=== PATIENT | female | born 1935 | race Caucasian/White ===

== ENCOUNTER 2017-01-07 16:20 | Inpatient (IN) | payer MEDICARE ==
[2017-01-07 16:35] LABS: O2 DELIVERY DEVICE ROOM AIR; O2 FLOW RATE 0
[2017-01-07 16:56] LABS: CHLORIDE,CL 101 mEq/L (98-106); PCO2 ARTERIAL 37 mm/Hg0 (35-45); PO2 ARTERIAL 61 mm/Hg (80-100); SODIUM,NA 138 mEq/L (136-145)
[2017-01-07 16:57] LABS: BICARBONATE,ARTERIAL 25.5 mm/L (22.0-26.0); O2 SATURATION ARTERIAL 92 % (95-98)
[2017-01-07] MEDS ORDERED: Albuterol/Ipratropium 3.0-0.5 MG/3 ML Neb Soln ONE (17:31)
[2017-01-07] MEDS: Lactated Ringers 1,000 ML IV SCH (18:20)
[2017-01-07] MEDS ORDERED: Naproxen 500 MG Tab PO PRN (20:10)
[2017-01-07] MEDS: cefTRIAXone 1 GM Vial IVPUSH SCH (20:38)
[2017-01-07] MEDS: Acetaminophen 500 MG Tab PO PRN (20:42)
[2017-01-07] MEDS: Fluconazole 100 MG Tab PO SCH (20:42)
[2017-01-07] MEDS: Albuterol/Ipratropium 3.0-0.5 MG/3 ML Neb Soln NEB SCH (20:49)
[2017-01-07] MEDS ORDERED: Azithromycin 500 MG in Sodium Chloride 0.9% 250 ML IV SCH (21:00)
[2017-01-07] MEDS: Metoprolol Tartrate 50 MG Tab PO SCH (21:20)
[2017-01-08] MEDS: Acetaminophen 500 MG Tab PO PRN ×2 (04:11→15:03)
[2017-01-08] MEDS: Lactated Ringers 1,000 ML IV SCH (04:54)
[2017-01-08] MEDS: Multivitamin Tab PO SCH (08:15)
[2017-01-08] MEDS: Metoprolol Tartrate 50 MG Tab PO SCH ×2 (08:15→19:27)
[2017-01-08] MEDS: Fluconazole 100 MG Tab PO SCH (08:15)
[2017-01-08] MEDS: Fluconazole/Normal Saline 200 MG in Premix Bag 1 BAG IV SCH (09:29)
[2017-01-08] MEDS: Albuterol/Ipratropium 3.0-0.5 MG/3 ML Neb Soln NEB SCH ×3 (09:29→17:00)
[2017-01-08] MEDS: Pantoprazole 40 MG Vial IVPUSH SCH (09:30)
--- NOTE | 2017-01-08 11:21 | PN ---
DATE: 01/08/2017 S: The patient is an 81-year-old with a history of COPD and lung cancer. She has had a prior right upper lobectomy. She presented with Pam Maharaj PA-C, for just generalized decline, weakness, dizziness, cough. Chest x-ray showed multiple opacifications in the right lung. Ultimately, CT scan was done which showed middle and right lower lobe pneumonic process, questionable fungus as well. Since she has been admitted she has had a T-max of 100.5, vitals were otherwise been stable. She is on no oxygen this morning. She is saturating at 94%. She really denies any concerns. Since admission white count, hemoglobin, and platelet count have all declined, INR is therapeutic at 2.9. Rest of her electrolytes are fine. Her CRP was 19.6 on admit, it was 15.9 today. O: GENERAL: On physical exam, she is pleasant, alert, and cooperative, does not appear in distress. HEENT: Grossly benign. NECK: Veins are flat. RESPIRATORY: Her lung sounds are diminished in all childs. She is rhonchus with some rales in the right lower lobe area. No audible wheezing today. CARDIAC: Tones are regular. ABDOMEN: Soft. EXTREMITIES: No peripheral edema is seen. LABORATORY DATA: CT scan of the head and chest was done yesterday by Pam. Head was fine, looks like she has multiple opacities in the right middle and lower lobe. Radiologist notes these are cancer recurrence from her history of lung cancer. His question if there may be fungus there. ASSESSMENT: 1. RIGHT MIDDLE AND LOWER LOBE PNEUMONIA, POSSIBLY FUNGAL. 2. HISTORY OF RECURRENT DEEP VEIN THROMBOSIS, CURRENTLY ANTICOAGULATED. 3. CHRONIC OBSTRUCTIVE PULMONARY DISEASE. 4. HISTORY OF LUNG CANCER. 5. ANEMIA WITH MICROCYTIC. P: The patient is on Coumadin. Her hemoglobin went from 9.2 yesterday to 7.8 today. I will recheck it again this afternoon. We will get Hemoccult. We will start her on IV Protonix. Type and screen her for 4 units. Currently, we will continue with her current dose of Coumadin. I am going to switch her over to IV Diflucan and we will continue to follow closely. BRIAN/SAMANTA /[id number]
[2017-01-08] MEDS: Albuterol 0.083% 2.5 MG/3 ML Neb Soln ONE ×2 (15:00→17:00)
[2017-01-08] MEDS ORDERED: Albuterol 0.083% 2.5 MG/3 ML Neb Soln NEB SCH ×2 (16:00→21:00)
[2017-01-08 17:09] LABS: O2 DELIVERY DEVICE NASAL CANNULA; O2 FLOW RATE 0
[2017-01-08 17:10] LABS: BICARBONATE,ARTERIAL 24.7 mm/L (22.0-26.0); O2 SATURATION ARTERIAL 98 % (95-98); PCO2 ARTERIAL 36 mm/Hg0 (35-45); PO2 ARTERIAL 105 mm/Hg (80-100)
[2017-01-08] MEDS ORDERED: Albuterol 0.083% 2.5 MG/3 ML Neb Soln ONE (17:16)
[2017-01-08] MEDS: cefTRIAXone 1 GM Vial IVPUSH SCH (19:22)
[2017-01-08] MEDS: Azithromycin 500 MG in Sodium Chloride 0.9% 250 ML IV SCH (19:28)
[2017-01-08] MEDS: Temazepam 15 MG Cap PO PRN (20:34)
[2017-01-08] MEDS ORDERED: Albuterol 0.083% 2.5 MG/3 ML Neb Soln NEB ONE (23:50)
[2017-01-09] MEDS: Pantoprazole 40 MG Vial IVPUSH SCH (08:18)
[2017-01-09] MEDS: Metoprolol Tartrate 50 MG Tab PO SCH (08:22)
[2017-01-09] MEDS: Multivitamin Tab PO SCH (08:22)
[2017-01-09] MEDS ORDERED: Albuterol 0.083% 2.5 MG/3 ML Neb Soln NEB PRN (08:56)
[2017-01-09] MEDS: Fluconazole/Normal Saline 200 MG in Premix Bag 1 BAG IV SCH (09:02)
[2017-01-09] MEDS: Albuterol/Ipratropium 3.0-0.5 MG/3 ML Neb Soln NEB SCH ×4 (09:16→20:38)
--- NOTE | 2017-01-09 09:57 | PN ---
DATE: 01/09/2017 S: Ms. Stanley had an uneventful day yesterday. She did not spike any temperatures. She does feel quite short of breath, although she is saturating in the upper 90s on 2 L. she is much more raspy and audibly wheezing this morning. She is not working much harder to breathe. She talks in full sentences. O: GENERAL: She is pleasant and cooperative on exam. NECK: Her neck veins are flat. LUNGS: Sounds are rhonchorous throughout with expiratory wheezing. Rales heard again on that right side. CARDIAC: Tones are irregular, but controlled. ABDOMEN: Soft and nontender. She has no peripheral edema. ASSESSMENT: 1. PNEUMONIA WITH HISTORY OF LUNG CARCINOMA. 2. POSSIBLE FUNGAL PNEUMONIA. 3. OUT THE PANCYTOPENIA. P: We will add some DuoNeb to her regimen and get her on a low dose of the steroids. We are not going to make any other changes at this time. The patient clinically doing well. Clinically appears stable and will continue to monitor closely. BRIAN/SAMANTA /[id number]
[2017-01-09] MEDS: guaiFENesin 200 MG Tab PO SCH ×2 (11:47→19:39)
[2017-01-09] MEDS ORDERED: Warfarin 2.5 MG Tab PO SCH (12:00)
[2017-01-09] MEDS: cefTRIAXone 1 GM Vial IVPUSH SCH (19:39)
[2017-01-09] MEDS: Azithromycin 500 MG in Sodium Chloride 0.9% 250 ML IV SCH (19:39)
[2017-01-09] MEDS: Acetaminophen 500 MG Tab PO PRN (19:49)
[2017-01-09] MEDS ORDERED: Metoprolol Tartrate 25 MG Tab PO SCH (20:00)
[2017-01-09] MEDS: Temazepam 15 MG Cap PO PRN (20:38)
[2017-01-10] MEDS: guaiFENesin 200 MG Tab PO SCH ×3 (07:37→20:06)
[2017-01-10] MEDS: Metoprolol Tartrate 25 MG Tab PO SCH ×2 (07:37→20:05)
[2017-01-10] MEDS: Multivitamin Tab PO SCH (07:37)
[2017-01-10] MEDS: Pantoprazole 40 MG Vial IVPUSH SCH (07:38)
[2017-01-10] MEDS: Albuterol/Ipratropium 3.0-0.5 MG/3 ML Neb Soln NEB SCH ×4 (09:07→20:13)
[2017-01-10] MEDS: Fluconazole/Normal Saline 200 MG in Premix Bag 1 BAG IV SCH (09:08)
[2017-01-10] MEDS: cefTRIAXone 1 GM Vial IVPUSH SCH (20:05)
[2017-01-10] MEDS: Azithromycin 500 MG in Sodium Chloride 0.9% 250 ML IV SCH (20:07)
[2017-01-10] MEDS: Acetaminophen 500 MG Tab PO PRN (20:12)
[2017-01-10] MEDS: Temazepam 15 MG Cap PO PRN (20:12)
--- NOTE | 2017-01-10 21:30 | PCM.PN ---
- General Info Date of Service: 01/10/17 Admission Dx/Problem (Free Text): pneumonia, possible fungal pneumonia COPD Hx of lung cancer Subjective Update: Patient has been receiving azithromycin, ceftriaxone and fluconazole for pneumonia. She is tolerating these medications well. She's developed runs of tachycardia to 140's with her metoprolol was decreased yesterday. She is now getting 50 mg twice a day. Rate is regular and in the 90s to low 100s. O2 sats remained in. She has been afebrile. DuoNeb breathing treatments regularly. Patient states that she feels improved today and nursing staff have no new concerns. - Review of Systems General: Denies: Fever, Fatigue HEENT: Reports: no symptoms Pulmonary: Reports: cough, wheezing. Denies: shortness of breath Cardiovascular: Denies: Chest Pain, Dyspnea on Exertion Gastrointestinal: Reports: No symptoms Genitourinary: Reports: no symptoms Musculoskeletal: Reports: no symptoms Neurological: Reports: No Symptoms - Patient Data Vitals - most recent: Last Vital Signs Temp 99.4 F 01/10/17 20:12 Pulse 97 01/10/17 20:05 Resp 20 01/10/17 19:21 BP 131/70 01/10/17 20:05 Pulse Ox 95 01/10/17 19:21 Weight - most recent: 113 lb 8.609 oz I&O - last 24 hours: Intake & Output 01/10/17 01/10/17 01/10/17 06:59 14:59 22:59 Intake Total 700 900 930 Output Total 800 750 975 Balance -100 150 -45 Lab Results last 24 hrs: Laboratory Results - last 24 hr 01/10/17 01/10/17 01/10/17 Range/Units 07:15 07:15 07:15 WBC 2.6 L (5.0-10.0) 10^3/uL RBC 3.61 L (4.00-5.50) 10^6/uL Hgb 8.6 L (12.0-16.0) g/dL Hct 27.9 L (37.0-47.0) % MCV 77.3 L (82.0-94.0) fL MCH 23.8 L (27.0-32.0) pg MCHC 30.8 L (33.0-38.0) g/dL RDW Coeff of Nadine 15.6 H (11.0-15.0) % Plt Count 184 (150-400) 10^3/uL Neut % (Auto) 64.3 (35-85) % Lymph % (Auto) 18.2 (10-55) % Webb % (Auto) 16.3 H (0-16) % Eos % (Auto) 1.2 (0-5) % Baso % (Auto) 0 (0-3) % Neut # (Auto) 1.66 L (1.80-7.00) 10^3/uL Lymph # (Auto) 0.47 L (1.00-4.80) 10^3/uL Webb # (Auto) 0.42 (0.00-0.80) 10^3/uL Eos # (Auto) 0.03 (0.00-0.45) 10^3/uL Baso # (Auto) 0.00 10^3/uL PT 31.2 H (9.7-12.3) SEC INR 2.80 H (0.92-1.18) C-Reactive Protein 7.8 H (0.2-0.8) mg/dL Med Orders - Current: Current Medications Acetaminophen (Tylenol Extra Strength) 1,000 mg PO Q4H PRN PRN Reason: Fever Last Admin: 01/10/17 20:12 Dose: 1,000 mg Albuterol (Proventil Neb Soln) 2.5 mg NEB QIDRT PRN PRN Reason: Shortness of Breath Albuterol/Ipratropium (Duoneb 3.0-0.5 Mg/3 Ml) 3 ml NEB QIDRT [facility] Last Admin: 01/10/17 20:13 Dose: 3 ml Ceftriaxone Sodium (Rocephin) 1 gm IVPUSH Q24H [facility] Last Admin: 01/10/17 20:05 Dose: 1 gm Guaifenesin (Organ-I Nr) 400 mg PO TID [facility] Last Admin: 01/10/17 20:06 Dose: 400 mg Azithromycin 500 mg/ Sodium (Chloride) 250 mls @ 250 mls/hr IV Q24H [facility] Last Admin: 01/10/17 20:07 Dose: 250 mls/hr Fluconazole/Sodium Chloride (200 mg/ Premix) 100 mls @ 100 mls/hr IV Q24H [facility] Last Admin: 01/10/17 09:08 Dose: 100 mls/hr Metoprolol Tartrate (Lopressor) 50 mg PO BID [facility] Last Admin: 01/10/17 20:05 Dose: 50 mg Multivitamins/Minerals/Vitamin C (Tab-A-Shannon) 1 tab PO DAILY [facility] Last Admin: 01/10/17 07:37 Dose: 1 tab Pantoprazole Sodium (Protonix Iv) 40 mg IVPUSH Q24H [facility] Last Admin: 01/10/17 07:38 Dose: 40 mg Temazepam (Restoril) 15 mg PO BEDTIME PRN PRN Reason: Insomnia Last Admin: 01/10/17 20:12 Dose: 15 mg Warfarin Sodium (Coumadin) 7.5 mg PO 1200 [facility] Discontinued Medications Albuterol (Proventil Neb Soln) Confirm Administered Dose 2.5 mg .ROUTE .STK-MED ONE Stop: 01/08/17 15:38 Last Admin: 01/08/17 17:00 Dose: 2.5 mg Albuterol (Proventil Neb Soln) 2.5 mg NEB QIDRT [facility] Last Admin: 01/08/17 20:16 Dose: 2.5 mg Albuterol (Proventil Neb Soln) Confirm Administered Dose 2.5 mg .ROUTE .STK-MED ONE Stop: 01/08/17 17:17 Last Admin: 01/08/17 19:22 Dose: Not Given Albuterol (Proventil Neb Soln) 2.5 mg NEB ONETIME ONE Stop: 01/08/17 23:51 Last Admin: 01/09/17 00:02 Dose: 2.5 mg Albuterol/Ipratropium (Duoneb 3.0-0.5 Mg/3 Ml) Confirm Administered Dose 3 ml .ROUTE .STK-MED ONE Stop: 01/07/17 17:32 Last Admin: 01/07/17 17:45 Dose: 3 ml Albuterol/Ipratropium (Duoneb 3.0-0.5 Mg/3 Ml) 3 ml NEB QIDRT [facility] Last Admin: 01/08/17 17:00 Dose: Not Given Fluconazole (Diflucan) 100 mg PO DAILY [facility] Last Admin: 01/08/17 08:15 Dose: 100 mg Lactated Ringer's (Ringers, Lactated) 1,000 mls @ 100 mls/hr IV ASDIRECTED [facility] Last Admin: 01/08/17 04:54 Dose: 100 mls/hr Azithromycin 500 mg/ Sodium (Chloride) 250 mls @ 250 mls/hr IV Q24H [facility] Last Admin: 01/07/17 20:44 Dose: 250 mls/hr Metoprolol Tartrate (Lopressor) 50 mg PO BID [facility] Last Admin: 01/09/17 08:22 Dose: 50 mg Metoprolol Tartrate (Lopressor) 25 mg PO BID [facility] Last Admin: 01/09/17 19:38 Dose: 25 mg Naproxen (Naprosyn) 500 mg PO Q12H PRN PRN Reason: Pain - Exam General: alert, oriented HEENT: Mucous membr. moist/pink Lungs: Wheezing (Mild wheezing to right lower lung lobe) Cardiovascular: Other (Right or) Abdomen: soft, no tenderness, no distension Back Exam: No: CVA tenderness (L), CVA tenderness (R) Extremities: no edema Psy/Mental Status: alert, normal affect, normal mood - Problem List Review Problem List Initiated/Reviewed/Updated: Yes - Assessment Assessment:: Pneumonia, possibly fungal COPD History of lung cancer - Plan Plan:: We'll continue currently ordered medications and antibiotics. Will repeat CBC BMP and CRP in the morning.
[2017-01-11] MEDS: Pantoprazole 40 MG Vial IVPUSH SCH (08:00)
[2017-01-11] MEDS: Metoprolol Tartrate 25 MG Tab PO SCH ×2 (08:03→19:49)
[2017-01-11] MEDS: Multivitamin Tab PO SCH (08:04)
[2017-01-11] MEDS: guaiFENesin 200 MG Tab PO SCH ×3 (08:04→19:48)
[2017-01-11] MEDS: Fluconazole/Normal Saline 200 MG in Premix Bag 1 BAG IV SCH (09:03)
[2017-01-11] MEDS: Albuterol/Ipratropium 3.0-0.5 MG/3 ML Neb Soln NEB SCH ×4 (09:04→20:50)
--- NOTE | 2017-01-11 16:29 | PCM.PN ---
- General Info Date of Service: 01/11/17 Admission Dx/Problem (Free Text): pneumonia, possible fungal pneumonia COPD Hx of lung cancer Subjective Update: Patient has been feeling well. Cough continues, but she thinks that she is a little bit better today. Heart rate is mid 80's and sinus rhythm on telemetry since taking metoprolol BID. O2 sats remain above 95%. She has been afebrile. nursing staff have no new concerns. Functional Status: Reports: tolerating diet, ambulating - Review of Systems General: Denies: Fever, Weakness, Fatigue, Malaise HEENT: Reports: no symptoms Pulmonary: Reports: cough, wheezing. Denies: shortness of breath Cardiovascular: Reports: No Symptoms Gastrointestinal: Denies: Abdominal pain, Decreased appetite, Nausea, Vomiting Genitourinary: Reports: no symptoms Neurological: Reports: No Symptoms Psychiatric: Reports: no symptoms - Patient Data Vitals - most recent: Last Vital Signs Temp 97.3 F 01/11/17 12:00 Pulse 89 01/11/17 12:00 Resp 16 01/11/17 12:00 BP 148/84 H 01/11/17 12:00 Pulse Ox 94 L 01/11/17 12:00 Weight - most recent: 113 lb 8.609 oz I&O - last 24 hours: Intake & Output 01/11/17 01/11/17 01/11/17 06:59 14:59 22:59 Intake Total 350 720 Output Total 1200 825 Balance -850 -105 Lab Results last 24 hrs: Laboratory Results - last 24 hr 01/11/17 01/11/17 01/11/17 Range/Units 07:40 07:40 07:40 WBC 2.2 L (5.0-10.0) 10^3/uL RBC 3.80 L (4.00-5.50) 10^6/uL Hgb 9.0 L (12.0-16.0) g/dL Hct 29.3 L (37.0-47.0) % MCV 77.1 L (82.0-94.0) fL MCH 23.7 L (27.0-32.0) pg MCHC 30.7 L (33.0-38.0) g/dL RDW Coeff of Nadine 15.7 H (11.0-15.0) % Plt Count 199 (150-400) 10^3/uL Neut % (Auto) 63.9 (35-85) % Lymph % (Auto) 18.9 (10-55) % [place] % (Auto) 14.0 (0-16) % Eos % (Auto) 2.7 (0-5) % Baso % (Auto) 0.5 (0-3) % Neut # (Auto) 1.42 L (1.80-7.00) 10^3/uL Lymph # (Auto) 0.42 L (1.00-4.80) 10^3/uL [place] # (Auto) 0.31 (0.00-0.80) 10^3/uL Eos # (Auto) 0.06 (0.00-0.45) 10^3/uL Baso # (Auto) 0.01 10^3/uL PT 32.1 H (9.7-12.3) SEC INR 2.88 H (0.92-1.18) C-Reactive Protein 5.9 H (0.2-0.8) mg/dL David Results last 24 hrs: Microbiology 01/11/17 09:15 Occult Blood - Preliminary Stool / Feces - Stool, Formed 01/07/17 20:03 Gram Stain - Final Sputum - Expectorated Sputum Culture - Final Med Orders - Current: Current Medications Acetaminophen (Tylenol Extra Strength) 1,000 mg PO Q4H PRN PRN Reason: Fever Last Admin: 01/10/17 20:12 Dose: 1,000 mg Albuterol (Proventil Neb Soln) 2.5 mg NEB QIDRT PRN PRN Reason: Shortness of Breath Albuterol/Ipratropium (Duoneb 3.0-0.5 Mg/3 Ml) 3 ml NEB QIDRT [facility] Last Admin: 01/11/17 13:12 Dose: 3 ml Ceftriaxone Sodium (Rocephin) 1 gm IVPUSH Q24H [facility] Last Admin: 01/10/17 20:05 Dose: 1 gm Guaifenesin (Organ-I Nr) 400 mg PO TID [facility] Last Admin: 01/11/17 13:19 Dose: 400 mg Azithromycin 500 mg/ Sodium (Chloride) 250 mls @ 250 mls/hr IV Q24H [facility] Last Admin: 01/10/17 20:07 Dose: 250 mls/hr Fluconazole/Sodium Chloride (200 mg/ Premix) 100 mls @ 100 mls/hr IV Q24H [facility] Last Admin: 01/11/17 09:03 Dose: 100 mls/hr Metoprolol Tartrate (Lopressor) 50 mg PO BID [facility] Last Admin: 01/11/17 08:03 Dose: 50 mg Multivitamins/Minerals/Vitamin C (Tab-A-Shannon) 1 tab PO DAILY [facility] Last Admin: 01/11/17 08:04 Dose: 1 tab Pantoprazole Sodium (Protonix Iv) 40 mg IVPUSH Q24H [facility] Last Admin: 01/11/17 08:00 Dose: 40 mg Temazepam (Restoril) 15 mg PO BEDTIME PRN PRN Reason: Insomnia Last Admin: 01/10/17 20:12 Dose: 15 mg Warfarin Sodium (Coumadin) 7.5 mg PO 1200 [facility] Discontinued Medications Albuterol (Proventil Neb Soln) Confirm Administered Dose 2.5 mg .ROUTE .STK-MED ONE Stop: 01/08/17 15:38 Last Admin: 01/08/17 17:00 Dose: 2.5 mg Albuterol (Proventil Neb Soln) 2.5 mg NEB QIDRT [facility] Last Admin: 01/08/17 20:16 Dose: 2.5 mg Albuterol (Proventil Neb Soln) Confirm Administered Dose 2.5 mg .ROUTE .STK-MED ONE Stop: 01/08/17 17:17 Last Admin: 01/08/17 19:22 Dose: Not Given Albuterol (Proventil Neb Soln) 2.5 mg NEB ONETIME ONE Stop: 01/08/17 23:51 Last Admin: 01/09/17 00:02 Dose: 2.5 mg Albuterol/Ipratropium (Duoneb 3.0-0.5 Mg/3 Ml) Confirm Administered Dose 3 ml .ROUTE .STK-MED ONE Stop: 01/07/17 17:32 Last Admin: 01/07/17 17:45 Dose: 3 ml Albuterol/Ipratropium (Duoneb 3.0-0.5 Mg/3 Ml) 3 ml NEB QIDRT [facility] Last Admin: 01/08/17 17:00 Dose: Not Given Fluconazole (Diflucan) 100 mg PO DAILY [facility] Last Admin: 01/08/17 08:15 Dose: 100 mg Lactated Ringer's (Ringers, Lactated) 1,000 mls @ 100 mls/hr IV ASDIRECTED [facility] Last Admin: 01/08/17 04:54 Dose: 100 mls/hr Azithromycin 500 mg/ Sodium (Chloride) 250 mls @ 250 mls/hr IV Q24H [facility] Last Admin: 01/07/17 20:44 Dose: 250 mls/hr Metoprolol Tartrate (Lopressor) 50 mg PO BID [facility] Last Admin: 01/09/17 08:22 Dose: 50 mg Metoprolol Tartrate (Lopressor) 25 mg PO BID [facility] Last Admin: 01/09/17 19:38 Dose: 25 mg Naproxen (Naprosyn) 500 mg PO Q12H PRN PRN Reason: Pain - Exam General: alert, oriented HEENT: Mucous membr. moist/pink Lungs: Wheezing (throughout all lung childs) Cardiovascular: Regular Rate (rate mid 80's), Regular Rhythm Abdomen: soft, no tenderness. No: CVA tenderness Extremities: no edema, no cyanosis Neurological: no new focal deficit Psy/Mental Status: alert, normal affect, normal mood - Problem List Review Problem List Initiated/Reviewed/Updated: Yes - Assessment Assessment:: Pneumonia, possibly fungal COPD History of lung cancer - Plan Plan:: Will continue currently ordered medications and antibiotics. Repeat labs in the morning. Dr. Ghosh will follow with patient on rounds tomorrow.
[2017-01-11] MEDS: cefTRIAXone 1 GM Vial IVPUSH SCH (19:48)
[2017-01-11] MEDS: Azithromycin 500 MG in Sodium Chloride 0.9% 250 ML IV SCH (19:48)
[2017-01-11] MEDS: Temazepam 15 MG Cap PO PRN (20:52)
[2017-01-12] MEDS: guaiFENesin 200 MG Tab PO SCH ×2 (07:53→14:10)
[2017-01-12] MEDS: Multivitamin Tab PO SCH (07:53)
[2017-01-12] MEDS: Pantoprazole 40 MG Vial IVPUSH SCH (07:54)
[2017-01-12] MEDS: Metoprolol Tartrate 25 MG Tab PO SCH (07:54)
[2017-01-12] MEDS: Fluconazole/Normal Saline 200 MG in Premix Bag 1 BAG IV SCH (07:58)
[2017-01-12] MEDS: Albuterol/Ipratropium 3.0-0.5 MG/3 ML Neb Soln NEB SCH ×2 (09:51→13:00)
[2017-01-12 12:25] VITALS: BP 145/90
--- NOTE | 2017-01-13 08:55 | DISCH ---
ADMISSION DIAGNOSES: 1. Pneumonia. 2. Chronic obstructive pulmonary disease exacerbation. 3. History of lung cancer. DISCHARGE DIAGNOSIS: 1. PNEUMONIA. 2. CHRONIC OBSTRUCTIVE PULMONARY DISEASE EXACERBATION. 3. HISTORY OF LUNG CANCER. HISTORY: The patient is an 81-year-old female with known lung CA. She has elected to stop treatments at this time. It has been some time since she has followed up with her oncologist. She presented to Pam Maharaj in an outpatient setting for increased shortness of breath, cough, wheezing, etc. Chest x-ray showed some concern for pneumonia versus lung CA recurrence. Pam did an evaluation at that time. She had some degree of pancytopenia. INR was therapeutic. Her CRP was 15.9. Chest x-ray showed opacifications in the right mid lung, likely representing infiltrate. The patient was admitted to the hospital for evaluation and treatment. HOSPITAL COURSE: The patient was started on IV antibiotics in the form on Zithromax and Rocephin. CT scan of the chest was done to evaluate for any cancer recurrence. Radiology read pneumonia in the right lung with questionable fungal component due to its appearance. Fungal serology has been ordered and is pending. The patient was put on IV Diflucan as well. For the most part, the patient has been stable since here, she has been afebrile. We did lower her beta-ariana dose slightly and she got a little tachycardic from that, so we went back to her original dose and her pulse appears to be stable. She is holding her sats in the low to mid 90s. She continues to be exertionally dyspneic and short of breath. Her pancytopenia persists and we have not done any further eval for that up to this point. Right now, her hemoglobin is stable at 8.5. She came in with it at 7.9. Hemoccults to this point are negative. INR is therapeutic and she does have a negative Hemoccult. From a cardiopulmonary standpoint, the patient has been stable. She has been afebrile. CRP is 15.9 on admit. It is down to 3.6. Sputum culture thus far has been negative for any pathogen. We are waiting on fungal serology. Legionella and mycoplasma serology are negative. We elect to put her in swing bed for a finished course of IV antibiotics and we will continue her on Diflucan until we see the results of her fungal serology. I have talked to her at length about followup with Oncology given her history of lung CA and now evidence of ongoing pancytopenia. She will contemplate this and we will address this while she is in swing bed. COMPLICATIONS: During her stay were none. CONSULTATIONS: RT. DISPOSITION: Transferred to swing bed. BRIAN/SAMANTA /[id number]
== END 2017-01-12 15:00 | disposition swing bed (61) | DRG 194 ==
LOC: CC.FCMC 16:20 → CC.MS 16:20 → UNDOADMIN 17:04 → CC.MS 17:04
PROVIDERS: ADMIT Physician Assistant Medical; ATTEND Family Medicine
DX: J18.9 Pneumonia, unspecified organism (principal); J16.8 Pneumonia due to other specified infectious organisms; J44.1 Chronic obstructive pulmonary disease with (acute) exacerbation; D61.818 Other pancytopenia; R42 Dizziness and giddiness; R91.1 Solitary pulmonary nodule; D50.9 Iron deficiency anemia, unspecified; Z79.01 Long term (current) use of anticoagulants; R05 Cough; R53.1 Weakness; Z85.118 Personal history of other malignant neoplasm of bronchus and lung; Z86.718 Personal history of other venous thrombosis and embolism; Z90.2 Acquired absence of lung [part of]
CPT/HCPCS: 36415; 36600; 70450; 71020; 71250; 80053; 81001; 82270; 82803; 85018; 85025; 85610; 86140; 86738; 86850; 86900; 86901; 86920; 86922; 87070; 87205; 87899; 94640; 94640-76; 94760; A9270-GY; C9113; J0456; J0696; J1450; J7050; J7120; J7620-GY

== ENCOUNTER 2017-01-12 15:00 | Inpatient (IN) | payer MEDICARE ==
[2017-01-12] MEDS ORDERED: Albuterol/Ipratropium 3.0-0.5 MG/3 ML Neb Soln ONE (16:14)
[2017-01-12] MEDS ORDERED: Sodium Chloride 0.9% 10 ML Syringe FLUSH PRN (16:14)
[2017-01-12] MEDS ORDERED: Ondansetron 4 MG Tab.DIS PO PRN (16:14)
[2017-01-12] MEDS: Metoprolol Tartrate 50 MG Tab PO SCH (20:44)
[2017-01-12] MEDS: cefTRIAXone 1 GM Vial IVPUSH SCH (20:44)
[2017-01-12] MEDS: Temazepam 15 MG Cap PO PRN (20:46)
[2017-01-13] MEDS: Multivitamin Tab PO SCH (07:51)
[2017-01-13] MEDS: Metoprolol Tartrate 50 MG Tab PO SCH ×2 (07:51→20:21)
[2017-01-13] MEDS: Fluconazole/Normal Saline 200 MG in Premix Bag 1 BAG IV SCH (07:52)
[2017-01-13] MEDS: Warfarin 2.5 MG Tab PO SCH (12:56)
[2017-01-13] MEDS: cefTRIAXone 1 GM Vial IVPUSH SCH (20:21)
[2017-01-14] MEDS: Metoprolol Tartrate 50 MG Tab PO SCH ×2 (08:05→19:54)
[2017-01-14] MEDS: Multivitamin Tab PO SCH (08:05)
[2017-01-14] MEDS: Fluconazole/Normal Saline 200 MG in Premix Bag 1 BAG IV SCH (08:06)
--- NOTE | 2017-01-14 12:40 | PN ---
DATE: 01/14/2017 Brook is continuing to do well. She remains afebrile. Her vitals have been fine. Blood pressure is actually up slightly. Saturations have been in the low to mid 90s on room air. Interestingly, she continues to have some degree of pancytopenia. I went back through her chart yesterday as I had not seen this woman in over 2 or 3 years, and she has never had issues with this in the past, and her last chemo was in 2013. We are going to get a peripheral smear, sedimentation rate, B12 folate, and she may very well need bone marrow biopsy in the near future. BRIAN/SAMANTA /[id number]
[2017-01-14] MEDS: Warfarin 2.5 MG Tab PO SCH (12:47)
[2017-01-14] MEDS: cefTRIAXone 1 GM Vial IVPUSH SCH (19:48)
[2017-01-15] MEDS: Metoprolol Tartrate 50 MG Tab PO SCH ×2 (07:58→19:45)
[2017-01-15] MEDS: Multivitamin Tab PO SCH (07:58)
[2017-01-15] MEDS: Fluconazole/Normal Saline 200 MG in Premix Bag 1 BAG IV SCH (07:58)
[2017-01-15] MEDS: Warfarin 2.5 MG Tab PO SCH (12:00)
[2017-01-15] MEDS: cefTRIAXone 1 GM Vial IVPUSH SCH (19:45)
[2017-01-16] MEDS: Fluconazole/Normal Saline 200 MG in Premix Bag 1 BAG IV SCH (07:41)
[2017-01-16] MEDS: Metoprolol Tartrate 50 MG Tab PO SCH ×2 (07:42→18:59)
[2017-01-16] MEDS: Multivitamin Tab PO SCH (07:42)
[2017-01-16] MEDS: Warfarin 2.5 MG Tab PO SCH (12:14)
[2017-01-16] MEDS ORDERED: Albuterol 0.083% 2.5 MG/3 ML Neb Soln NEB PRN (18:52)
[2017-01-16] MEDS: cefTRIAXone 1 GM Vial IVPUSH SCH (18:59)
[2017-01-16] MEDS: Albuterol/Ipratropium 3.0-0.5 MG/3 ML Neb Soln NEB SCH ×2 (18:59→20:28)
[2017-01-16] MEDS ORDERED: Albuterol/Ipratropium 3.0-0.5 MG/3 ML Neb Soln ONE (19:07)
[2017-01-17] MEDS: Metoprolol Tartrate 50 MG Tab PO SCH ×2 (07:43→21:01)
[2017-01-17] MEDS: Multivitamin Tab PO SCH (07:43)
[2017-01-17] MEDS: Fluconazole/Normal Saline 200 MG in Premix Bag 1 BAG IV SCH (07:44)
[2017-01-17] MEDS: Albuterol/Ipratropium 3.0-0.5 MG/3 ML Neb Soln NEB SCH ×4 (08:54→21:51)
[2017-01-17 09:17] LABS: CHLORIDE,CL 102 mEq/L (98-106); SODIUM,NA 141 mEq/L (136-145)
--- NOTE | 2017-01-17 10:59 | PCM.PN ---
- General Info Date of Service: 01/17/17 Functional Status: Reports: pain controlled - Review of Systems General: Reports: No Symptoms HEENT: Reports: no symptoms Pulmonary: Reports: shortness of breath, cough, sputum, wheezing Cardiovascular: Reports: No Symptoms Gastrointestinal: Reports: No symptoms Genitourinary: Reports: no symptoms Musculoskeletal: Reports: no symptoms Skin: Reports: no symptoms Neurological: Reports: No Symptoms Psychiatric: Reports: no symptoms - Patient Data Vitals - most recent: Last Vital Signs Temp 98.5 F 01/17/17 07:38 Pulse 91 01/17/17 07:43 Resp 16 01/17/17 07:38 BP 158/85 H 01/17/17 07:43 Pulse Ox 95 01/17/17 07:38 Weight - most recent: 116 lb 13.52 oz Lab Results last 24 hrs: Laboratory Results - last 24 hr 01/17/17 01/17/17 Range/Units 08:41 08:41 WBC 6.4 (5.0-10.0) 10^3/uL RBC 4.24 (4.00-5.50) 10^6/uL Hgb 9.9 L (12.0-16.0) g/dL Hct 32.1 L (37.0-47.0) % MCV 75.7 L (82.0-94.0) fL MCH 23.3 L (27.0-32.0) pg MCHC 30.8 L (33.0-38.0) g/dL RDW Coeff of Nadine 15.9 H (11.0-15.0) % Plt Count 407 H (150-400) 10^3/uL Neut % (Auto) 86.7 H (35-85) % Lymph % (Auto) 6.6 L (10-55) % [place] % (Auto) 5.7 (0-16) % Eos % (Auto) 0.8 (0-5) % Baso % (Auto) 0.2 (0-3) % Neut # (Auto) 5.53 (1.80-7.00) 10^3/uL Lymph # (Auto) 0.42 L (1.00-4.80) 10^3/uL [place] # (Auto) 0.36 (0.00-0.80) 10^3/uL Eos # (Auto) 0.05 (0.00-0.45) 10^3/uL Baso # (Auto) 0.01 10^3/uL Sodium 141 (136-145) mEq/L Potassium 3.6 (3.5-5.0) mEq/L Chloride 102 (98-106) mEq/L Carbon Dioxide 30 (21-32) mmol/L BUN 13 (7-18) mg/dL Creatinine 0.5 L (0.6-1.0) mg/dL Est Cr Clr Drug Dosing 69.79 mL/min Estimated GFR (MDRD) > 60 (>=60) mL/min Glucose 237 H D (75-99) mg/dL Calcium 8.6 (8.4-10.1) mg/dL Med Orders - Current: Current Medications Albuterol (Proventil Neb Soln) 2.5 mg NEB Q2H PRN PRN Reason: Dyspnea Albuterol/Ipratropium (Duoneb 3.0-0.5 Mg/3 Ml) 3 ml NEB QIDRT [facility] Last Admin: 01/17/17 08:54 Dose: 3 ml Ceftriaxone Sodium (Rocephin) 1 gm IVPUSH Q24H [facility] Last Admin: 01/16/17 18:59 Dose: 1 gm Fluconazole/Sodium Chloride (200 mg/ Premix) 100 mls @ 100 mls/hr IV Q24H [facility] Last Admin: 01/17/17 07:44 Dose: 100 mls/hr Metoprolol Tartrate (Lopressor) 50 mg PO BID [facility] Last Admin: 01/17/17 07:43 Dose: 50 mg Multivitamins/Minerals/Vitamin C (Tab-A-Shannon) 1 tab PO DAILY [facility] Last Admin: 01/17/17 07:43 Dose: 1 tab Ondansetron HCl (Zofran Odt) 4 mg PO Q4H PRN PRN Reason: nausea, able to take PO Sodium Chloride (Saline Flush) 10 ml FLUSH ASDIRECTED PRN PRN Reason: Keep Vein Open Temazepam (Restoril) 15 mg PO BEDTIME PRN PRN Reason: Insomnia Last Admin: 01/12/17 20:46 Dose: 15 mg Warfarin Sodium (Coumadin) 7.5 mg PO 1200 [facility] Last Admin: 01/16/17 12:14 Dose: 7.5 mg Discontinued Medications Albuterol/Ipratropium (Duoneb 3.0-0.5 Mg/3 Ml) Confirm Administered Dose 3 ml .ROUTE .STK-MED ONE Stop: 01/12/17 16:15 Last Admin: 01/12/17 16:19 Dose: 3 ml Albuterol/Ipratropium (Duoneb 3.0-0.5 Mg/3 Ml) Confirm Administered Dose 3 ml .ROUTE .STK-MED ONE Stop: 01/16/17 19:08 Last Admin: 01/16/17 19:00 Dose: Not Given - Exam Quality Assessment: supplemental oxygen General: alert, oriented, cooperative, no acute distress Neck: supple Lungs: Rhonchi, Wheezing Cardiovascular: Regular Rate, Regular Rhythm, No Murmurs Abdomen: bowel sounds present, soft, no tenderness Back Exam: normal inspection, full range of motion Extremities: no edema, normal pulses, no tenderness/swelling, no clubbing, no cyanosis, no calf tenderness Peripheral Pulses: 2+: posterior tibial (L), posterior tibial (R), dorsalis pedis (L), dorsalis pedis (R) Skin: warm, dry, intact Neurological: no new focal deficit Psy/Mental Status: alert, normal affect, normal mood - Problem List Review Problem List Initiated/Reviewed/Updated: Yes - My Orders Last 24 Hours: My Active Orders 01/16/17 18:50 Albuterol/Ipratropium [DuoNeb 3.0-0.5 MG/3 ML] 3 ml NEB QIDRT 01/16/17 18:52 Albuterol [Proventil Neb Soln] 2.5 mg NEB Q2H PRN 01/17/17 10:48 PRO B-TYPE NATRIUR PEPT,BNPPRO [CHEM] Stat 01/18/17 05:00 BASIC METABOLIC PANEL,BMP [CHEM] Routine CBC WITH AUTO DIFF [HEME] Routine - Plan Plan:: This patient is an 81 year old female that was admitted for pneumonia and dyspnea. The patient reports that she was feeling better, but started last night she began to have increase in shortness of breath. She reports that she is more winded when she ambulates now. She had not had breathing treatment for hours, I reordered them last night, she does report the breathing treatments are now helping. I will do a CXR. I have ordered labs. The patient is conversing in full and complete sentences without difficulty. Will see again tomorrow.
[2017-01-17] MEDS: Warfarin 2.5 MG Tab PO SCH (11:48)
[2017-01-17] MEDS: cefTRIAXone 1 GM Vial IVPUSH SCH (21:02)
[2017-01-17] MEDS: Temazepam 15 MG Cap PO PRN (22:07)
[2017-01-18] MEDS: Fluconazole/Normal Saline 200 MG in Premix Bag 1 BAG IV SCH (07:34)
[2017-01-18] MEDS: Metoprolol Tartrate 50 MG Tab PO SCH ×2 (07:38→20:21)
[2017-01-18] MEDS: Multivitamin Tab PO SCH (07:38)
[2017-01-18 08:40] LABS: CHLORIDE,CL 104 mEq/L (98-106); SODIUM,NA 141 mEq/L (136-145)
[2017-01-18] MEDS: Albuterol/Ipratropium 3.0-0.5 MG/3 ML Neb Soln NEB SCH ×4 (09:02→20:22)
--- NOTE | 2017-01-18 10:42 | PCM.PN ---
- General Info Functional Status: Reports: pain controlled - Review of Systems General: Reports: No Symptoms HEENT: Reports: no symptoms Pulmonary: Reports: shortness of breath, cough, sputum Cardiovascular: Reports: No Symptoms Gastrointestinal: Reports: No symptoms Genitourinary: Reports: no symptoms Musculoskeletal: Reports: no symptoms Skin: Reports: no symptoms Neurological: Reports: No Symptoms Psychiatric: Reports: no symptoms - Patient Data Vitals - most recent: Last Vital Signs Temp 97.8 F 01/18/17 07:28 Pulse 98 01/18/17 07:38 Resp 20 01/18/17 07:28 BP 142/78 H 01/18/17 07:38 Pulse Ox 95 01/18/17 07:28 Weight - most recent: 116 lb 13.52 oz Lab Results last 24 hrs: Laboratory Results - last 24 hr 01/13/17 01/17/17 01/18/17 Range/Units 08:30 10:48 05:00 WBC 4.6 L (5.0-10.0) 10^3/uL RBC 4.07 (4.00-5.50) 10^6/uL Hgb 9.6 L (12.0-16.0) g/dL Hct 31.2 L (37.0-47.0) % MCV 76.7 L (82.0-94.0) fL MCH 23.6 L (27.0-32.0) pg MCHC 30.8 L (33.0-38.0) g/dL RDW Coeff of Nadine 15.9 H (11.0-15.0) % Plt Count 439 H (150-400) 10^3/uL Neut % (Auto) 78.6 (35-85) % Lymph % (Auto) 10.7 (10-55) % Brule % (Auto) 8.5 (0-16) % Eos % (Auto) 1.8 (0-5) % Baso % (Auto) 0.4 (0-3) % Neut # (Auto) 3.59 (1.80-7.00) 10^3/uL Lymph # (Auto) 0.49 L (1.00-4.80) 10^3/uL Brule # (Auto) 0.39 (0.00-0.80) 10^3/uL Eos # (Auto) 0.08 (0.00-0.45) 10^3/uL Baso # (Auto) 0.02 10^3/uL Sodium (136-145) mEq/L Potassium (3.5-5.0) mEq/L Chloride (98-106) mEq/L Carbon Dioxide (21-32) mmol/L BUN (7-18) mg/dL Creatinine (0.6-1.0) mg/dL Est Cr Clr Drug Dosing mL/min Estimated GFR (MDRD) (>=60) mL/min Glucose (75-99) mg/dL Calcium (8.4-10.1) mg/dL Xls-I-Zlgyptanqal Pept 511 (0-1000) pg/nL Blastomyces Antibody <1:8 Coccidioides Ab <1:2 Histoplasma Mycelial Ab <1:8 Histoplasma Yeast Ab <1:8 Aspergillus Antibody <1:8 01/18/17 Range/Units 05:00 WBC (5.0-10.0) 10^3/uL RBC (4.00-5.50) 10^6/uL Hgb (12.0-16.0) g/dL Hct (37.0-47.0) % MCV (82.0-94.0) fL MCH (27.0-32.0) pg MCHC (33.0-38.0) g/dL RDW Coeff of Nadine (11.0-15.0) % Plt Count (150-400) 10^3/uL Neut % (Auto) (35-85) % Lymph % (Auto) (10-55) % Brule % (Auto) (0-16) % Eos % (Auto) (0-5) % Baso % (Auto) (0-3) % Neut # (Auto) (1.80-7.00) 10^3/uL Lymph # (Auto) (1.00-4.80) 10^3/uL Brule # (Auto) (0.00-0.80) 10^3/uL Eos # (Auto) (0.00-0.45) 10^3/uL Baso # (Auto) 10^3/uL Sodium 141 (136-145) mEq/L Potassium 4.0 (3.5-5.0) mEq/L Chloride 104 (98-106) mEq/L Carbon Dioxide 32 (21-32) mmol/L BUN 13 (7-18) mg/dL Creatinine 0.5 L (0.6-1.0) mg/dL Est Cr Clr Drug Dosing 69.79 mL/min Estimated GFR (MDRD) > 60 (>=60) mL/min Glucose 118 H D (75-99) mg/dL Calcium 8.0 L (8.4-10.1) mg/dL Qpx-[id number]-Npbocwwrkpp Pept (0-1000) pg/nL Blastomyces Antibody Coccidioides Ab Histoplasma Mycelial Ab Histoplasma Yeast Ab Aspergillus Antibody Med Orders - Current: Current Medications Albuterol (Proventil Neb Soln) 2.5 mg NEB Q2H PRN PRN Reason: Dyspnea Albuterol/Ipratropium (Duoneb 3.0-0.5 Mg/3 Ml) 3 ml NEB QIDRT [facility] Last Admin: 01/18/17 09:02 Dose: 3 ml Ceftriaxone Sodium (Rocephin) 1 gm IVPUSH Q24H [facility] Last Admin: 01/17/17 21:02 Dose: 1 gm Fluconazole/Sodium Chloride (200 mg/ Premix) 100 mls @ 100 mls/hr IV Q24H [facility] Last Admin: 01/18/17 07:34 Dose: 100 mls/hr Metoprolol Tartrate (Lopressor) 50 mg PO BID [facility] Last Admin: 01/18/17 07:38 Dose: 50 mg Multivitamins/Minerals/Vitamin C (Tab-A-Shannon) 1 tab PO DAILY [facility] Last Admin: 01/18/17 07:38 Dose: 1 tab Ondansetron HCl (Zofran Odt) 4 mg PO Q4H PRN PRN Reason: nausea, able to take PO Sodium Chloride (Saline Flush) 10 ml FLUSH ASDIRECTED PRN PRN Reason: Keep Vein Open Temazepam (Restoril) 15 mg PO BEDTIME PRN PRN Reason: Insomnia Last Admin: 01/17/17 22:07 Dose: 15 mg Warfarin Sodium (Coumadin) 7.5 mg PO 1200 [facility] Last Admin: 01/17/17 11:48 Dose: 7.5 mg Discontinued Medications Albuterol/Ipratropium (Duoneb 3.0-0.5 Mg/3 Ml) Confirm Administered Dose 3 ml .ROUTE .STK-MED ONE Stop: 01/12/17 16:15 Last Admin: 01/12/17 16:19 Dose: 3 ml Albuterol/Ipratropium (Duoneb 3.0-0.5 Mg/3 Ml) Confirm Administered Dose 3 ml .ROUTE .STK-MED ONE Stop: 01/16/17 19:08 Last Admin: 01/16/17 19:00 Dose: Not Given - Exam Quality Assessment: supplemental oxygen General: alert, oriented, cooperative, no acute distress Neck: supple Lungs: Decreased breath sounds, Rhonchi, Wheezing Cardiovascular: Regular Rate, Regular Rhythm Abdomen: soft, no tenderness Back Exam: normal inspection, full range of motion Extremities: no edema, normal pulses, no tenderness/swelling, no clubbing, no cyanosis, no calf tenderness Skin: warm, dry, intact Neurological: no new focal deficit Psy/Mental Status: alert, normal affect, normal mood - Problem List Review Problem List Initiated/Reviewed/Updated: Yes - Plan Plan:: This patient is an 81 year old female that was admitted for pneumonia and dyspnea. The patient reports that she is feeling better than she did yesterday, She reports that the breathing treatments are helping her. She is 91% on RA. The patient reports that she likes wearing the oxygen because it helps with her shortness of breath. She reports that she is less winded when she ambulates compared to yesterday. The patient is conversing in full and complete sentences without difficulty. Her labs are unremarkable. Will continue treatment plan.
[2017-01-18] MEDS: Warfarin 2.5 MG Tab PO SCH (11:49)
[2017-01-18] MEDS: cefTRIAXone 1 GM Vial IVPUSH SCH (20:22)
[2017-01-18] MEDS: Temazepam 15 MG Cap PO PRN (21:32)
[2017-01-19 07:34] VITALS: BP 143/84
[2017-01-19] MEDS: Fluconazole/Normal Saline 200 MG in Premix Bag 1 BAG IV SCH (07:39)
[2017-01-19] MEDS: Multivitamin Tab PO SCH (07:43)
[2017-01-19] MEDS: Metoprolol Tartrate 50 MG Tab PO SCH (07:43)
[2017-01-19] MEDS: Warfarin 2.5 MG Tab PO SCH (12:02)
--- NOTE | 2017-01-19 21:36 | PCM.DCSUM1 ---
Discharge Summary - Hospital Course Free Text/Narrative:: Patient admitted to acute setting by Pam Maharaj with increased shortness of breath and labs that indicated pancytopenia. Patient does have history of lung cancer and patient had stopped treatment for that. Concerns with state of the lung cancer prompted CT scan. Findings indicated pneumonia in right midlobe with concerns of a fungal appearance. Continued to IV Rocephin and Zithromax and Diflucan added during her acute stay. She did have low hemoglobin, platelets but did remain relatively stable with some improvement. No blood noted in stools. Transferred to swing bed for ongoing IV therapy, PT and oxygen as needed. - Discharge Data Discharge Date: 01/19/17 Discharge Disposition: Home, Self-Care 01 Condition: Fair - Patient Summary/Data Complications: none Consults: Consultations 01/12/17 16:14 OT Evaluation and Treatment [CONS] Routine PT Evaluation and Treatment [CONS] Routine Respiratory Care Assess and Treatment [CONS] Routine Hospital Course: Patient had slow improvement of her overall lung status during her stay. Is feeling much better today. Was having difficulty late last week and was started on oxygen again. Weaned off that last night and sats have remained stable since. She has continued to have IV Rocephin and Zithromax and Diflucan. Neb treatments do help her wheezing and air exchange as well. Will discharge home on nebulizer treatments, Xanax as needed for any anxiety. Follow up with further labs to determine if referral to hematology. Will see Pam Maharaj in 10 days for labs and repeat CXR. Planning to stay with daughter over the next few days for further assistance as needed. - Patient Instructions Diet: Usual Diet as Tolerated Activity: As Tolerated - Discharge Plan Prescriptions/Med Rec: ALPRAZolam [Xanax] 0.25 mg PO Q8H PRN #60 tablet PRN Reason: Anxiety Albuterol/Ipratropium [DuoNeb 3.0-0.5 MG/3 ML] 3 ml NEB QIDRT #12 neb Home Medications: Home Meds Metoprolol Tartrate [Lopressor] 50 mg PO BID 02/08/15 [History] Multivitamin [Daily Vitamin] 1 each PO DAILY 03/12/15 [History] Warfarin [Coumadin] 7.5 mg PO DAILY 04/27/16 [History] Naproxen [Naprosyn] 500 mg PO Q12HR PRN 01/07/17 [History] ALPRAZolam [Xanax] 0.25 mg PO Q8H PRN #60 tablet 01/19/17 [Rx] Albuterol/Ipratropium [DuoNeb 3.0-0.5 MG/3 ML] 3 ml NEB QIDRT #12 neb 01/19/17 [ Rx] Referrals: Pam Maharaj PA-C [Family Provider] - (10 day follow up with Pam Maharaj. Labs and chest xray prior to appointment) - Discharge Summary/Plan Comment DC Time >30 min.: No Discharge Summary/Plan Comment: Discharge home with daughter. Patient will continue on nebulizers, Xanax as needed for anxiety. Will follow up with Pam Maharaj for further labs and chest xray next week. - General Info Date of Service: 01/19/17 Admission Dx/Problem (Free Text: COPD Exacerbation Functional Status: Reports: pain controlled, tolerating diet, ambulating - Review of Systems General: Reports: Weakness, Fatigue. Denies: Fever HEENT: Denies: sinus congestion, sore throat, rhinitis Pulmonary: Reports: shortness of breath, wheezing. Denies: cough Cardiovascular: Denies: Chest Pain, Edema, Lightheadedness Gastrointestinal: Denies: Abdominal pain, Nausea, Vomiting Genitourinary: Reports: no symptoms Musculoskeletal: Reports: no symptoms Skin: Reports: no symptoms - Patient Data Vitals - Most Recent: Last Vital Signs Temp 97.8 F 01/19/17 07:33 Pulse 85 01/19/17 07:43 Resp 16 01/19/17 07:33 BP 143/84 H 01/19/17 07:43 Pulse Ox 95 01/19/17 07:33 Weight - Most Recent: 112 lb 3.445 oz I&O - Last 24 hours: Intake & Output 01/19/17 01/19/17 01/19/17 06:59 14:59 22:59 Intake Total 400 Balance 400 Med Orders - Current: Current Medications Discontinued Medications Albuterol (Proventil Neb Soln) 2.5 mg NEB Q2H PRN PRN Reason: Dyspnea Albuterol/Ipratropium (Duoneb 3.0-0.5 Mg/3 Ml) Confirm Administered Dose 3 ml .ROUTE .STK-MED ONE Stop: 01/12/17 16:15 Last Admin: 01/12/17 16:19 Dose: 3 ml Albuterol/Ipratropium (Duoneb 3.0-0.5 Mg/3 Ml) 3 ml NEB QIDRT [facility] Last Admin: 01/18/17 20:22 Dose: 3 ml Albuterol/Ipratropium (Duoneb 3.0-0.5 Mg/3 Ml) Confirm Administered Dose 3 ml .ROUTE .STK-MED ONE Stop: 01/16/17 19:08 Last Admin: 01/16/17 19:00 Dose: Not Given Ceftriaxone Sodium (Rocephin) 1 gm IVPUSH Q24H [facility] Last Admin: 01/18/17 20:22 Dose: 1 gm Fluconazole/Sodium Chloride (200 mg/ Premix) 100 mls @ 100 mls/hr IV Q24H [facility] Last Admin: 01/19/17 07:39 Dose: 100 mls/hr Metoprolol Tartrate (Lopressor) 50 mg PO BID [facility] Last Admin: 01/19/17 07:43 Dose: 50 mg Multivitamins/Minerals/Vitamin C (Tab-A-Shannon) 1 tab PO DAILY [facility] Last Admin: 01/19/17 07:43 Dose: 1 tab Ondansetron HCl (Zofran Odt) 4 mg PO Q4H PRN PRN Reason: nausea, able to take PO Sodium Chloride (Saline Flush) 10 ml FLUSH ASDIRECTED PRN PRN Reason: Keep Vein Open Temazepam (Restoril) 15 mg PO BEDTIME PRN PRN Reason: Insomnia Last Admin: 01/18/17 21:32 Dose: 15 mg Warfarin Sodium (Coumadin) 7.5 mg PO 1200 [facility] Last Admin: 01/19/17 12:02 Dose: 7.5 mg - Exam General: Reports: alert, oriented HEENT: Reports: Mucous membr. moist/pink Neck: Reports: supple Lungs: Reports: Decreased breath sounds, Wheezing Cardiovascular: Reports: Regular Rate, Regular Rhythm Abdomen: Reports: bowel sounds present, soft, no tenderness Extremities: Reports: no edema Skin: Reports: warm, dry Neurological: Reports: no new focal deficit Psy/Mental Status: Reports: alert *Q Meaningful Use (DIS) - VTE *Q VTE Criteria *Q: - Stroke *Q Stroke Criteria *Q: - AMI *Q AMI Criteria *Q:
== END 2017-01-19 12:54 | disposition home or self-care (01) | DRG 190 ==
LOC: CC.MS 15:00 → UNDOADMIN 15:00 → CC.MS 16:14 → UNDODISIN 01-19 12:54
PROVIDERS: ADMIT Physician Assistant Medical; ATTEND Family Medicine
DX: J44.0 Chronic obstructive pulmonary disease with (acute) lower respiratory infection (principal); J18.9 Pneumonia, unspecified organism; D61.818 Other pancytopenia; J44.1 Chronic obstructive pulmonary disease with (acute) exacerbation; Z85.118 Personal history of other malignant neoplasm of bronchus and lung; R06.02 Shortness of breath
CPT/HCPCS: 36415; 71020; 80048; 82607; 83880; 85014; 85018; 85025; 85610; 85651; 86606; 86612; 86635; 86698; 94640; 94640-76; 94761; 97110-GP; 97161-GP; A9270-GY; J0696; J1450

== ENCOUNTER 2017-01-22 18:05 | Emergency (ER) | payer MEDICARE ==
[~2017-01-22 18:05] MED LIST: Acetaminophen/HYDROcodone 325-5 MG Tab PO ONE
--- NOTE | 2017-01-22 18:38 | EDM.PDOC ---
ED HPI GENERAL MEDICAL PROBLEM - General Chief Complaint: General Stated Complaint: ABDOMINAL/BACK PAIN Time Seen by Provider: 01/22/17 18:25 Source of Information: Reports: Patient, Family (daughter) History Limitations: Reports: No limitations - History of Present Illness INITIAL COMMENTS - FREE TEXT/NARRATIVE: Pt was recently discharged from our hospital for pneumonia and went to stay with daughter in [place] and was doing well untl last night at 2100 when she started getting walls in the left upper quadrant of abdomen. It would come and go and be very severe. It progressively became worse and more often and severe that this morning she went to the ER in [place] and was evaluated. They did labs and EKG and all were normal. She continues to have pain on and off and it can be very severe at times. At other times she has no pain. No diarrhea or constipation. Last BM was yesterday. has not been vomiting. Appetite hasn't been good for a while so hasn't changed. Onset: gradual Onset Date: 01/22/17 Onset Time: 09:00 - Related Data Allergies Allergy/AdvReac Type Severity Reaction Status Date / Time codeine Allergy Cannot Verified 01/22/17 18:11 Remember Home Meds: Home Meds Metoprolol Tartrate [Lopressor] 50 mg PO BID 02/08/15 [History] Multivitamin [Daily Vitamin] 1 each PO DAILY 03/12/15 [History] Warfarin [Coumadin] 7.5 mg PO DAILY 04/27/16 [History] ALPRAZolam [Xanax] 0.25 mg PO Q8H PRN #60 tablet 01/19/17 [Rx] Albuterol/Ipratropium [DuoNeb 3.0-0.5 MG/3 ML] 3 ml NEB QIDRT #12 neb 01/19/17 [ Rx] Acetaminophen [Pain Relief Extra Strength] 1,000 mg PO Q6H PRN 01/22/17 [History ] Past Medical History Cardiovascular History: Reports: Afib, Hypertension Respiratory History: Reports: Pneumonia, recurrent Genitourinary History: Reports: Renal calculus Oncologic (Cancer) History: Reports: Lung - Past Surgical History HEENT Surgical History: Reports: Cataract surgery Respiratory Surgical History: Reports: Lung Resection GI Surgical History: Reports: Appendectomy Social & Family History - Family History Cardiac: Reports: Hypertension - Tobacco Use Smoking Status *Q: Current Every Day Smoker Years of Tobacco use: 55 Packs/Tins Daily: 1.5 Used Tobacco, but Quit: Yes Month Tobacco Last Used: september - Recreational Drug Use Recreational Drug Use: No - Living Situation & Occupation Living situation: Reports: with family ED ROS GENERAL - Review of Systems Review Of Systems: See Below Constitutional: Denies: fever, chills Respiratory: Denies: Shortness of Breath Cardiovascular: Reports: Chest pain GI/Abdominal: Reports: Abdominal pain : Reports: flank pain. Denies: dysuria, frequency Musculoskeletal: Denies: neck pain Neurological: Denies: Confusion ED EXAM, GENERAL - Physical Exam Exam: See Below General Appearance: alert, WD/WN, no apparent distress Ears: normal external exam, normal canal, normal TMs Nose: normal inspection Throat/Mouth: Normal inspection, Normal oropharynx, No airway compromise Head: atraumatic, normocephalic Neck: supple, non-tender Respiratory/Chest: no respiratory distress, normal breath sounds Cardiovascular: regular rate, rhythm, no edema GI/Abdominal: normal bowel sounds, soft. No: guarding, rigid, rebound Extremities: normal inspection, non-tender, no pedal edema Neurological: alert, oriented Skin Exam: Warm, Dry Course - Vital Signs Last Recorded V/S: Last Vital Signs Temp 99.6 F 01/22/17 18:08 Pulse 79 01/22/17 18:08 Resp 20 01/22/17 18:08 BP 123/63 01/22/17 18:08 Pulse Ox 95 01/22/17 18:08 - Orders/Labs/Meds Orders: Active Orders 24 hr Category Date Time Status Abdomen Pelvis wo Cont [CT] Stat Exams 01/22/17 18:41 Ordered Labs: Laboratory Tests 01/22/17 Range/Units 18:18 Urine Color Light yellow (YELLOW) Urine Appearance Slightly cloudy (CLEAR) Urine pH 7.0 (4.5-8.0) Ur Specific [place] 1.014 (1.003-1.020) Urine Protein Negative (NEGATIVE) mg/dL Urine Glucose (UA) Negative (NEGATIVE) mg/dL Urine Ketones Negative (NEGATIVE) mg/dL Urine Occult Blood Trace-intact H (NEGATIVE) Urine Nitrite Negative (NEGATIVE) Urine Bilirubin Negative (NEGATIVE) Urine Urobilinogen 0.2 (0.2-1.0) EU/dL Ur Leukocyte Esterase Trace H (NEGATIVE) Urine RBC 0-5 (0-5) /HPF Urine WBC 0-5 (0-5) /HPF Ur Epithelial Cells Few H (NOT SEEN) /HPF Amorphous Sediment Moderate H (NOT SEEN) /HPF Meds: Medications Discontinued Medications Generic Name Dose Route Start Last Admin Trade Name Carlie PRN Reason Stop Dose Admin Ketorolac Tromethamine 60 mg 01/22/17 20:00 Toradol IM 01/22/17 20:01 ONETIME ONE - Re-Assessments/Exams Free Text/Narrative Re-Assessment/Exam: 01/22/17 20:03 In to discuss the CT report which shows that she has multiple bilateral kidney stones that are not obstructing and no hydronephrosis. Is also constipated. Discussed urology consult with Dr. Gallagher in [place], the use of pain meds and to relieve the constipation Departure - Departure Time of Disposition: 20:06 Disposition: Home, Self-Care 01 Condition: good Clinical Impression: Kidney stone on left side, Kidney stone on right side Constipation Qualifiers: Constipation type: slow transit constipation Qualified Code(s): K59.01 - Slow transit constipation Forms: ED Department Discharge Additional Instructions: Miralax or other stool softener or laxative daily to get bowels working [place]- 1-2 tabs as needed every 4-6 hours for the pain Clinic will call in the morning with appt for Dr. Gallagher Push fluids as much as possible to flush the kidneys. - Problem List & Annotations (1) Constipation SNOMED Code(s): 01528673 Code(s): K59.00 - CONSTIPATION, UNSPECIFIED Status: Acute Priority: High Qualifiers: Constipation type: slow transit constipation Qualified Code(s): K59.01 - Slow transit constipation (2) Kidney stone on left side SNOMED Code(s): 11333246 Code(s): N20.0 - CALCULUS OF KIDNEY Status: Acute Priority: High (3) Kidney stone on right side SNOMED Code(s): 82605379 Code(s): N20.0 - CALCULUS OF KIDNEY Status: Acute Priority: High - Problem List Review Problem List Initiated/Reviewed/Updated: Yes - My Orders Last 24 Hours: My Active Orders 01/22/17 18:41 Abdomen Pelvis wo Cont [CT] Stat - Assessment/Plan Last 24 Hours: My Active Orders 01/22/17 18:41 Abdomen Pelvis wo Cont [CT] Stat
[2017-01-22] MEDS ORDERED: Ketorolac 60 MG/2 ML SDV IM ONE (20:00)
[2017-01-22] MEDS ORDERED: Take Home: Acetaminophen/HYDROcodone 325-5 MG, 2 Tab Pack PO ONE (20:06)
[2017-01-22 20:53] VITALS: BP 128/68
== END 2017-01-22 20:30 | disposition home or self-care (01) ==
LOC: CC.ED 18:05
DX: N20.0 Calculus of kidney (principal); K59.01 Slow transit constipation; I48.91 Unspecified atrial fibrillation; I10 Essential (primary) hypertension; F17.210 Nicotine dependence, cigarettes, uncomplicated; Z88.5 Allergy status to narcotic agent; Z79.01 Long term (current) use of anticoagulants; Z79.899 Other long term (current) drug therapy; Z87.01 Personal history of pneumonia (recurrent); Z98.49 Cataract extraction status, unspecified eye; Z90.49 Acquired absence of other specified parts of digestive tract
CPT/HCPCS: 74176; 81001; 96372; 99284; A9270; J1885

== ENCOUNTER 2018-11-15 05:24 | Inpatient (IN) | payer MEDICARE ==
[2018-11-15] MEDS ORDERED: Albuterol/Ipratropium 3.0-0.5 MG/3 ML Neb Soln NEB ONE (05:41)
[2018-11-15] MEDS ORDERED: methylPREDNISolone Sodium Succinate 125 MG/2 ML SDV IVPUSH SCH (06:00)
[2018-11-15 06:18] LABS: CHLORIDE,CL 99 mEq/L (98-106); SODIUM,NA 141 mEq/L (136-145)
--- NOTE | 2018-11-15 06:21 | EDM.PDOC ---
ED HPI GENERAL MEDICAL PROBLEM - General Chief Complaint: Respiratory Problem Stated Complaint: cough,short of breath Time Seen by Provider: 11/15/18 06:00 Source of Information: Reports: Patient, Family History Limitations: Reports: No Limitations - History of Present Illness INITIAL COMMENTS - FREE TEXT/NARRATIVE: Patient presents to ER with complaints of increased shortness of breath. Has not felt well now for a week. She notes increased work of breathing. Has had very frequent, moist, nonproductive cough. Low grade fevers. Chest has been "rattly". She was in to see Pam Maharaj on , felt it was viral infection and started on prednisone. Too 3 doses of that but does not feel well with it, "got goofy". Has been using nebulizer treatments since as well but not seeing much improvement. Denies nausea/vomiting/diarrhea or constipation. No urinary symptoms. Did have vaginal irritation last week, better now. Not eating or drinking well as "makes it harder to breathe" PMH of atrial fib, currently on Coumadin. History of lung cancer with 1/3 of her right lung removed. Onset: Gradual Duration: Day(s):, Getting Worse Location: Reports: Chest Associated Symptoms: Reports: Cough, Fever/Chills, Malaise, Shortness of Breath , Weakness. 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, Other Medication(s) (prednisone) - Related Data Allergies Allergy/AdvReac Type Severity Reaction Status Date / Time codeine Allergy Cannot Verified 01/26/17 12:03 Remember prednisone AdvReac Intermediate Other Verified 11/15/18 06:19 Home Meds: Home Meds Metoprolol Tartrate [Lopressor] 50 mg PO BID 02/08/15 [History] Multivitamin [Daily Vitamin] 1 each PO DAILY 03/12/15 [History] Albuterol/Ipratropium [DuoNeb 3.0-0.5 MG/3 ML] 3 ml NEB QIDRT PRN 11/15/18 [ History] Warfarin [Coumadin] 5 mg PO ASDIRECTED 11/15/18 [History] Past Medical History Cardiovascular History: Reports: Afib, Blood Clots/VTE/DVT, Hypertension, SOB on Exertion, Stents Respiratory History: Reports: COPD, Pneumonia, Recurrent, SOB Genitourinary History: Reports: Renal Calculus Musculoskeletal History: Reports: Osteoarthritis Psychiatric History: Reports: Anxiety Hematologic History: Reports: Anemia Oncologic (Cancer) History: Reports: Lung - Past Surgical History HEENT Surgical History: Reports: Cataract Surgery Cardiovascular Surgical History: Reports: Coronary Artery Stent, Varicose Respiratory Surgical History: Reports: Lung Resection, Other (See Below) Other Respiratory Surgeries/Procedures: 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 GI Surgical History: Reports: Appendectomy Musculoskeletal Surgical History: Reports: Hip Replacement, Shoulder Surgery, Other (See Below) Other Musculoskeletal Surgeries/Procedures:: hammertoes and bunions both feet Oncologic Surgical History: Reports: Other (See Below) Other Oncologic Surgeries/Procedures: lower third of right lung removed Social & Family History - Family History Cardiac: Reports: Hypertension - Tobacco Use Smoking Status *Q: Current Every Day Smoker Years of Tobacco use: 68 Packs/Tins Daily: 0.5 - Living Situation & Occupation Living situation: Reports: with Family ED ROS GENERAL - Review of Systems Review Of Systems: See Below Constitutional: Reports: Fever, Chills, Malaise, Weakness, Fatigue, Decreased Appetite HEENT: Reports: Rhinitis. Denies: Ear Pain, Sinus Problem, Throat Pain Respiratory: Reports: Shortness of Breath, Wheezing, Pleuritic Chest Pain, Cough. Denies: Sputum Cardiovascular: Denies: Chest Pain, Edema, Lightheadedness Endocrine: Reports: Fatigue GI/Abdominal: Reports: Decreased Appetite. Denies: Abdominal Pain, Constipation , Diarrhea, Nausea, Vomiting : Denies: Dysuria Musculoskeletal: Reports: No Symptoms Skin: Reports: No Symptoms Neurological: Reports: Weakness Psychiatric: Reports: No Symptoms ED EXAM, GENERAL - Physical Exam Exam: See Below Exam Limited By: No Limitations General Appearance: Alert, WD/WN, Mild Distress Ears: Normal External Exam, Normal TMs Nose: Normal Inspection, Normal Mucosa, Nasal Drainage Throat/Mouth: Normal Inspection, Normal Oropharynx Head: Normocephalic Neck: Normal Inspection, Supple, Non-Tender Respiratory/Chest: Decreased Breath Sounds, Rhonchi Cardiovascular: Irregularly Irregular GI/Abdominal: Normal Bowel Sounds, Soft, Non-Tender Extremities: Normal Inspection, Normal Capillary Refill Neurological: Alert, Oriented Skin Exam: Warm, Dry Course - Vital Signs Last Recorded V/S: Last Vital Signs Temp 99.4 F 11/15/18 06:45 Pulse 88 11/15/18 06:45 Resp 20 02/18/19 06:45 BP 134/51 L 11/15/18 06:45 Pulse Ox 96 11/15/18 06:45 - Orders/Labs/Meds Orders: Active Orders 24 hr Category Date Time Status Chest 2V [CR] Stat Exams 11/15/18 05:41 Taken Medication Orders Acetaminophen (Tylenol) 650 mg PO Q4H PRN PRN Reason: Pain (Mild 1-3)/fever Albuterol (Proventil Neb Soln) 2.5 mg NEB Q4H PRN PRN Reason: Shortness Of Breath/wheezing Albuterol/Ipratropium (Duoneb 3.0-0.5 Mg/3 Ml) 3 ml NEB QIDRT [facility] Last Admin: 11/15/18 07:30 Dose: 3 ml Lactated Ringer's (Ringers, Lactated) 1,000 mls @ 75 mls/hr IV ASDIRECTED [facility] Last Admin: 11/15/18 07:29 Dose: 75 mls/hr Methylprednisolone Sodium Succinate (Solu-Medrol) 62.5 mg IVPUSH Q12H [facility] Last Admin: 11/15/18 07:29 Dose: 62.5 mg Ondansetron HCl (Zofran Odt) 4 mg PO Q4H PRN PRN Reason: nausea, able to take PO Ondansetron HCl (Zofran) 4 mg IV Q4H PRN PRN Reason: Nausea/Vomiting Oseltamivir Phosphate (Tamiflu) 75 mg PO DAILY [facility] Sodium Chloride (Saline Flush) 10 ml FLUSH ASDIRECTED PRN PRN Reason: Keep Vein Open Temazepam (Restoril) 15 mg PO BEDTIME PRN PRN Reason: Sleep Labs: Laboratory Tests 11/15/18 11/15/18 11/15/18 Range/Units 05:50 05:50 05:50 WBC 4.1 L (5.0-10.0) 10^3/uL RBC 5.06 (4.00-5.50) 10^6/uL Hgb 14.4 (12.0-16.0) g/dL Hct 43.0 (37.0-47.0) % MCV 85.0 (82.0-94.0) fL MCH 28.5 (27.0-32.0) pg MCHC 33.5 (33.0-38.0) g/dL RDW Coeff of Nadine 14.0 (11.0-15.0) % Plt Count 146 L (150-400) 10^3/uL Neut % (Auto) 77.4 (35-85) % Lymph % (Auto) 9.2 L (10-55) % [place] % (Auto) 13.0 (0-16) % Eos % (Auto) 0.2 (0-5) % Baso % (Auto) 0.2 (0-3) % Neut # (Auto) 3.20 (1.80-7.00) 10^3/uL Lymph # (Auto) 0.38 L (1.00-4.80) 10^3/uL [place] # (Auto) 0.54 (0.00-0.80) 10^3/uL Eos # (Auto) 0.01 (0.00-0.45) 10^3/uL Baso # (Auto) 0.01 10^3/uL PT 47.6 H (9.7-12.3) SEC INR 5.17 H* (0.92-1.18) D-Dimer, Quantitative < 0.19 (0.00-0.50) Sodium 141 (136-145) mEq/L Potassium 3.4 L (3.5-5.0) mEq/L Chloride 99 (98-106) mEq/L Carbon Dioxide 33 H (21-32) mmol/L BUN 14 (7-18) mg/dL Creatinine 0.5 L (0.6-1.0) mg/dL Est Cr Clr Drug Dosing 67.43 mL/min Estimated GFR (MDRD) > 60 (>=60) mL/min Glucose 119 H (75-99) mg/dL Calcium 8.6 (8.4-10.1) mg/dL C-Reactive Protein 4.4 H (0.2-0.8) mg/dL NT-Pro-B Natriuret Pep 1311 H (0-1000) pg/mL Meds: Medications Generic Name Dose Route Start Last Admin Trade Name Freq PRN Reason Stop Dose Admin Acetaminophen 650 mg 11/15/18 06:39 Tylenol PO Q4H PRN Pain (Mild 1-3)/fever Albuterol 2.5 mg 11/15/18 06:39 Proventil Neb Soln NEB Q4H PRN Shortness Of Breath/wheezing Albuterol/Ipratropium 3 ml 11/15/18 08:00 11/15/18 07:30 Duoneb 3.0-0.5 Mg/3 Ml NEB 3 ml QIDRT YAW Administration Lactated Ringer's 1,000 mls @ 75 mls/hr 11/15/18 06:39 11/15/18 07:29 Ringers, Lactated IV 75 mls/hr ASDIRECTED YAW Administration Methylprednisolone Sodium Succinate 62.5 mg 11/15/18 06:00 11/15/18 07:29 Solu-Medrol IVPUSH 62.5 mg Q12H YAW Administration Ondansetron HCl 4 mg 11/15/18 06:39 Zofran Odt PO Q4H PRN nausea, able to take PO Ondansetron HCl 4 mg 11/15/18 06:39 Zofran IV Q4H PRN Nausea/Vomiting Oseltamivir Phosphate 75 mg 11/15/18 08:00 Tamiflu PO DAILY YAW Sodium Chloride 10 ml 11/15/18 06:39 Saline Flush FLUSH ASDIRECTED PRN Keep Vein Open Temazepam 15 mg 11/15/18 06:39 Restoril PO BEDTIME PRN Sleep Discontinued Medications Generic Name Dose Route Start Last Admin Trade Name Freq PRN Reason Stop Dose Admin Albuterol/Ipratropium 3 ml 11/15/18 05:41 11/15/18 05:44 Duoneb 3.0-0.5 Mg/3 Ml NEB 11/15/18 05:42 3 ml ONETIME ONE Administration - Re-Assessments/Exams Free Text/Narrative Re-Assessment/Exam: 11/15/18 06:23 results reviewed with patient. Is influenza A positive. Will admit to acute. Start IV fluids, Tamiflu, nebs and steroids. Departure - Departure Time of Disposition: 06:15 Disposition: Admitted As Inpatient 66 Condition: Fair Clinical Impression: Influenza A - Discharge Information *PRESCRIPTION DRUG MONITORING PROGRAM REVIEWED*: No *COPY OF PRESCRIPTION DRUG MONITORING REPORT IN PATIENT RIGOBERTO: No - Problem List & Annotations (1) Influenza A SNOMED Code(s): 497742869 Code(s): J10.1 - FLU DUE TO OTH IDENT INFLUENZA VIRUS W OTH RESP MANIFEST Status: Acute Priority: High Current Visit: Yes (2) Palliative care status SNOMED Code(s): 563789244 Code(s): Z51.5 - ENCOUNTER FOR PALLIATIVE CARE Status: Acute Priority: High Current Visit: Yes (3) Atrial fibrillation SNOMED Code(s): 62639581 Code(s): I48.91 - UNSPECIFIED ATRIAL FIBRILLATION Status: Chronic Priority: High Current Visit: Yes Qualifiers: Atrial fibrillation type: chronic Qualified Code(s): I48.2 - Chronic atrial fibrillation - Problem List Review Problem List Initiated/Reviewed/Updated: Yes - My Orders Last 24 Hours: My Active Orders 11/15/18 05:41 Chest 2V [CR] Stat - Assessment/Plan Admission H&P: Please use this note as an admission H&P Last 24 Hours: My Active Orders 11/15/18 05:41 Chest 2V [CR] Stat Assessment:: Influenza A Atrial Fib Palliative Care Status Plan: Admit to inpatient. IV fluids, nebs, and steroids. Cardiac monitoring due to history of atrial fib. Start Tamiflu
[2018-11-15] MEDS ORDERED: Acetaminophen 325 MG Tab PO PRN (06:39)
[2018-11-15] MEDS ORDERED: Albuterol 0.083% 2.5 MG/3 ML Neb Soln NEB PRN (06:39)
[2018-11-15] MEDS ORDERED: Ondansetron 4 MG/2 ML SDV IV PRN (06:39)
[2018-11-15] MEDS ORDERED: Sodium Chloride 0.9% 10 ML Syringe FLUSH PRN (06:39)
[2018-11-15] MEDS ORDERED: Ondansetron 4 MG Tab.DIS PO PRN (06:39)
[2018-11-15] MEDS: Lactated Ringers 1,000 ML IV SCH ×2 (07:29→20:35)
[2018-11-15] MEDS: Albuterol/Ipratropium 3.0-0.5 MG/3 ML Neb Soln NEB SCH ×2 (07:30→11:30)
[2018-11-15] MEDS: Oseltamivir 75 MG Cap PO SCH (09:33)
[2018-11-15] MEDS ORDERED: Metoprolol Tartrate 50 MG Tab ONE (13:25)
[2018-11-15] MEDS: methylPREDNISolone Sodium Succinate 125 MG/2 ML SDV IVPUSH SCH (16:30)
[2018-11-15] MEDS: Levalbuterol HCl 1.25 MG/3 ML Neb NEB SCH ×2 (16:30→20:29)
[2018-11-15] MEDS: Metoprolol Tartrate 25 MG Tab PO SCH (20:29)
[2018-11-16 07:51] LABS: CHLORIDE,CL 104 mEq/L (98-106); SODIUM,NA 142 mEq/L (136-145)
[2018-11-16] MEDS: Metoprolol Tartrate 25 MG Tab PO SCH ×2 (08:12→19:36)
[2018-11-16] MEDS: Oseltamivir 75 MG Cap PO SCH (08:13)
[2018-11-16] MEDS: Multivitamin Tab PO SCH (08:13)
[2018-11-16] MEDS: Levalbuterol HCl 1.25 MG/3 ML Neb NEB SCH ×4 (08:13→19:40)
[2018-11-16] MEDS: methylPREDNISolone Sodium Succinate 125 MG/2 ML SDV IVPUSH SCH ×2 (08:17→15:43)
[2018-11-16] MEDS: Lactated Ringers 1,000 ML IV SCH ×2 (09:56→23:20)
--- NOTE | 2018-11-16 21:50 | PCM.PN ---
- General Info Date of Service: 11/16/18 Admission Dx/Problem (Free Text): Influenza A Functional Status: Reports: Pain Controlled, Tolerating Diet, Ambulating - Review of Systems General: Reports: Weakness, Fatigue, Malaise. Denies: Fever HEENT: Reports: Rhinitis Pulmonary: Reports: Shortness of Breath, Cough, Wheezing. Denies: Sputum Cardiovascular: Denies: Chest Pain, Edema, Lightheadedness Gastrointestinal: Denies: Abdominal Pain, Nausea, Vomiting Genitourinary: Reports: No Symptoms Musculoskeletal: Reports: No Symptoms Skin: Reports: No Symptoms Neurological: Reports: No Symptoms - Patient Data Vitals - Most Recent: Last Vital Signs Temp 98 F 11/16/18 19:34 Pulse 106 H 11/16/18 19:36 Resp 20 11/16/18 19:34 BP 176/105 H 11/16/18 19:36 Pulse Ox 96 11/16/18 19:34 Weight - Most Recent: 111 lb 9.6 oz I&O - Last 24 Hours: Intake & Output 11/16/18 11/16/18 11/16/18 06:59 14:59 22:59 Intake Total 1000 Balance 1000 Lab Results Last 24 Hours: Laboratory Results - last 24 hr 11/16/18 11/16/18 11/16/18 Range/Units 07:15 07:15 07:15 WBC 6.1 (5.0-10.0) 10^3/uL RBC 4.53 (4.00-5.50) 10^6/uL Hgb 12.9 (12.0-16.0) g/dL Hct 38.9 (37.0-47.0) % MCV 85.9 (82.0-94.0) fL MCH 28.5 (27.0-32.0) pg MCHC 33.2 (33.0-38.0) g/dL RDW Coeff of Nadine 13.8 (11.0-15.0) % Plt Count 146 L (150-400) 10^3/uL Neut % (Auto) 82.5 (35-85) % Lymph % (Auto) 7.2 L (10-55) % [place] % (Auto) 10.3 (0-16) % Eos % (Auto) 0 (0-5) % Baso % (Auto) 0 (0-3) % Neut # (Auto) 5.03 (1.80-7.00) 10^3/uL Lymph # (Auto) 0.44 L (1.00-4.80) 10^3/uL [place] # (Auto) 0.63 (0.00-0.80) 10^3/uL Eos # (Auto) 0.00 (0.00-0.45) 10^3/uL Baso # (Auto) 0.00 10^3/uL PT 46.0 H (9.7-12.3) SEC INR 4.98 H* (0.92-1.18) Sodium 142 (136-145) mEq/L Potassium 3.6 (3.5-5.0) mEq/L Chloride 104 (98-106) mEq/L Carbon Dioxide 33 H (21-32) mmol/L BUN 12 (7-18) mg/dL Creatinine 0.5 L (0.6-1.0) mg/dL Est Cr Clr Drug Dosing 67.43 mL/min Estimated GFR (MDRD) > 60 (>=60) mL/min Glucose 157 H D (75-99) mg/dL Calcium 8.5 (8.4-10.1) mg/dL C-Reactive Protein 11.5 H (0.2-0.8) mg/dL Med Orders - Current: Current Medications Acetaminophen (Tylenol) 650 mg PO Q4H PRN PRN Reason: Pain (Mild 1-3)/fever Lactated Ringer's (Ringers, Lactated) 1,000 mls @ 75 mls/hr IV ASDIRECTED [facility] Last Admin: 11/16/18 09:56 Dose: 75 mls/hr Levalbuterol HCl (Xopenex) 1.25 mg NEB QID [facility] Last Admin: 11/16/18 19:40 Dose: 1.25 mg Methylprednisolone Sodium Succinate (Solu-Medrol) 62.5 mg IVPUSH 0800,1600 [facility] Last Admin: 11/16/18 15:43 Dose: 62.5 mg Metoprolol Tartrate (Lopressor) 50 mg PO BID [facility] Last Admin: 11/16/18 19:36 Dose: 50 mg Multivitamins/Minerals/Vitamin C (Tab-A-Shannon) 1 tab PO DAILY [facility] Last Admin: 11/16/18 08:13 Dose: 1 tab Ondansetron HCl (Zofran Odt) 4 mg PO Q4H PRN PRN Reason: nausea, able to take PO Ondansetron HCl (Zofran) 4 mg IV Q4H PRN PRN Reason: Nausea/Vomiting Oseltamivir Phosphate (Tamiflu) 75 mg PO DAILY [facility] Last Admin: 11/16/18 08:13 Dose: 75 mg Sodium Chloride (Saline Flush) 10 ml FLUSH ASDIRECTED PRN PRN Reason: Keep Vein Open Temazepam (Restoril) 15 mg PO BEDTIME PRN PRN Reason: Sleep Discontinued Medications Albuterol (Proventil Neb Soln) 2.5 mg NEB Q4H PRN PRN Reason: Shortness Of Breath/wheezing Albuterol/Ipratropium (Duoneb 3.0-0.5 Mg/3 Ml) 3 ml NEB ONETIME ONE Stop: 11/15/18 05:42 Last Admin: 11/15/18 05:44 Dose: 3 ml Albuterol/Ipratropium (Duoneb 3.0-0.5 Mg/3 Ml) 3 ml NEB QIDRT [facility] Last Admin: 11/15/18 11:30 Dose: 3 ml Methylprednisolone Sodium Succinate (Solu-Medrol) 62.5 mg IVPUSH Q12H [facility] Last Admin: 11/15/18 07:29 Dose: 62.5 mg Metoprolol Tartrate (Lopressor) Confirm Administered Dose 50 mg .ROUTE .STK-MED ONE Stop: 11/15/18 13:26 Last Admin: 11/15/18 13:47 Dose: 50 mg Phytonadione (Aquamephyton) 1 mg SUBCUT ONETIME ONE Stop: 11/15/18 08:19 Last Admin: 11/15/18 09:33 Dose: 1 mg - Exam Quality Assessment: Supplemental Oxygen General: Alert, Oriented HEENT: Mucous Membr. Moist/[place] Neck: Supple Lungs: Decreased Breath Sounds, Rhonchi Cardiovascular: Irregular Rhythm GI/Abdominal Exam: Normal Bowel Sounds, Soft, Non-Tender Extremities: Normal Inspection, No Pedal Edema Skin: Warm, Dry Neurological: No New Focal Deficit - Problem List & Annotations (1) Influenza A SNOMED Code(s): 079069570 Code(s): J10.1 - FLU DUE TO OTH IDENT INFLUENZA VIRUS W OTH RESP MANIFEST Status: Acute Priority: High Current Visit: Yes (2) Palliative care status SNOMED Code(s): 100156593 Code(s): Z51.5 - ENCOUNTER FOR PALLIATIVE CARE Status: Acute Priority: High Current Visit: Yes (3) Atrial fibrillation SNOMED Code(s): 43809093 Code(s): I48.91 - UNSPECIFIED ATRIAL FIBRILLATION Status: Chronic Priority: High Current Visit: Yes Qualifiers: Atrial fibrillation type: chronic Qualified Code(s): I48.2 - Chronic atrial fibrillation - Problem List Review Problem List Initiated/Reviewed/Updated: Yes - My Orders Last 24 Hours: My Active Orders 11/16/18 08:00 Multivitamins [Tab-A-Shannon] 1 tab PO DAILY - Assessment Assessment:: Influenza A Palliative Care Status - Plan Plan:: Patient is feeling better today. States "the rattle had improved" last night but more notable again this am. She was up and ambulated last evening, states tolerated fairly well. Does continue to have congested, moist cough. Afebrile this am. WBC 6.1, CRP 11.5, Creatinine 0.5. INR still high at 4.93. Will continue with Tamiflu, steroids and nebs. Continue to hold Coumadin. Repeat labs in am.
[2018-11-17] MEDS: Temazepam 15 MG Cap PO PRN (00:44)
[2018-11-17] MEDS: Metoprolol Tartrate 25 MG Tab PO SCH ×2 (07:32→20:04)
[2018-11-17] MEDS: Multivitamin Tab PO SCH (07:34)
[2018-11-17] MEDS: methylPREDNISolone Sodium Succinate 125 MG/2 ML SDV IVPUSH SCH ×2 (07:35→15:54)
[2018-11-17] MEDS: Oseltamivir 75 MG Cap PO SCH (07:35)
[2018-11-17] MEDS: Levalbuterol HCl 1.25 MG/3 ML Neb NEB SCH ×4 (07:38→20:04)
[2018-11-17 07:54] LABS: CHLORIDE,CL 102 mEq/L (98-106); SODIUM,NA 143 mEq/L (136-145)
[2018-11-17] MEDS: Fluconazole 100 MG Tab PO SCH (09:00)
--- NOTE | 2018-11-17 10:54 | PCM.PN ---
- General Info Date of Service: 11/17/18 Admission Dx/Problem (Free Text): Influenza A Functional Status: Reports: Pain Controlled, Tolerating Diet, Ambulating ( ambulating in room as unable to in hallway due to influenza) - Review of Systems General: Reports: Weakness, Fatigue. Denies: Fever HEENT: Reports: Rhinitis Pulmonary: Reports: Shortness of Breath, Cough Cardiovascular: Denies: Chest Pain, Edema, Lightheadedness Gastrointestinal: Denies: Abdominal Pain, Nausea, Vomiting Genitourinary: Reports: No Symptoms Musculoskeletal: Reports: No Symptoms Skin: Reports: No Symptoms Neurological: Reports: No Symptoms - Patient Data Vitals - Most Recent: Last Vital Signs Temp 97.4 F 11/17/18 07:39 Pulse 93 11/17/18 07:39 Resp 20 11/17/18 07:39 BP 155/94 H 11/17/18 07:39 Pulse Ox 94 L 11/17/18 07:40 Weight - Most Recent: 111 lb 9.6 oz I&O - Last 24 Hours: Intake & Output 11/16/18 11/17/18 11/17/18 22:59 06:59 14:59 Intake Total 1000 Balance 1000 Lab Results Last 24 Hours: Laboratory Results - last 24 hr 11/17/18 11/17/18 11/17/18 Range/Units 07:10 07:10 07:10 WBC 8.2 (5.0-10.0) 10^3/uL RBC 4.82 (4.00-5.50) 10^6/uL Hgb 13.8 (12.0-16.0) g/dL Hct 41.9 (37.0-47.0) % MCV 86.9 (82.0-94.0) fL MCH 28.6 (27.0-32.0) pg MCHC 32.9 L (33.0-38.0) g/dL RDW Coeff of Nadine 14.1 (11.0-15.0) % Plt Count 179 (150-400) 10^3/uL Neut % (Auto) 84.0 (35-85) % Lymph % (Auto) 5.7 L (10-55) % [place] % (Auto) 10.3 (0-16) % Eos % (Auto) 0 (0-5) % Baso % (Auto) 0 (0-3) % Neut # (Auto) 6.87 (1.80-7.00) 10^3/uL Lymph # (Auto) 0.47 L (1.00-4.80) 10^3/uL [place] # (Auto) 0.84 H (0.00-0.80) 10^3/uL Eos # (Auto) 0.00 (0.00-0.45) 10^3/uL Baso # (Auto) 0.00 10^3/uL PT 28.2 H (9.7-12.3) SEC INR 2.94 H (0.92-1.18) Sodium 143 (136-145) mEq/L Potassium 3.4 L (3.5-5.0) mEq/L Chloride 102 (98-106) mEq/L Carbon Dioxide 35 H (21-32) mmol/L BUN 10 (7-18) mg/dL Creatinine 0.4 L (0.6-1.0) mg/dL Est Cr Clr Drug Dosing 84.28 mL/min Estimated GFR (MDRD) > 60 (>=60) mL/min Glucose 130 H (75-99) mg/dL Calcium 8.9 (8.4-10.1) mg/dL C-Reactive Protein 4.9 H (0.2-0.8) mg/dL Med Orders - Current: Current Medications Acetaminophen (Tylenol) 650 mg PO Q4H PRN PRN Reason: Pain (Mild 1-3)/fever Fluconazole (Diflucan) 100 mg PO DAILY [facility] Last Admin: 11/17/18 09:00 Dose: 100 mg Lactated Ringer's (Ringers, Lactated) 1,000 mls @ 75 mls/hr IV ASDIRECTED [facility] Last Admin: 11/16/18 23:20 Dose: 75 mls/hr Levalbuterol HCl (Xopenex) 1.25 mg NEB QID [facility] Last Admin: 11/17/18 07:38 Dose: 1.25 mg Methylprednisolone Sodium Succinate (Solu-Medrol) 62.5 mg IVPUSH 0800,1600 [facility] Last Admin: 11/17/18 07:35 Dose: 62.5 mg Metoprolol Tartrate (Lopressor) 50 mg PO BID [facility] Last Admin: 11/17/18 07:32 Dose: 50 mg Multivitamins/Minerals/Vitamin C (Tab-A-Shannon) 1 tab PO DAILY [facility] Last Admin: 11/17/18 07:34 Dose: 1 tab Ondansetron HCl (Zofran Odt) 4 mg PO Q4H PRN PRN Reason: nausea, able to take PO Ondansetron HCl (Zofran) 4 mg IV Q4H PRN PRN Reason: Nausea/Vomiting Oseltamivir Phosphate (Tamiflu) 75 mg PO DAILY [facility] Last Admin: 11/17/18 07:35 Dose: 75 mg Sodium Chloride (Saline Flush) 10 ml FLUSH ASDIRECTED PRN PRN Reason: Keep Vein Open Temazepam (Restoril) 15 mg PO BEDTIME PRN PRN Reason: Sleep Last Admin: 11/17/18 00:44 Dose: 15 mg Discontinued Medications Albuterol (Proventil Neb Soln) 2.5 mg NEB Q4H PRN PRN Reason: Shortness Of Breath/wheezing Albuterol/Ipratropium (Duoneb 3.0-0.5 Mg/3 Ml) 3 ml NEB ONETIME ONE Stop: 11/15/18 05:42 Last Admin: 11/15/18 05:44 Dose: 3 ml Albuterol/Ipratropium (Duoneb 3.0-0.5 Mg/3 Ml) 3 ml NEB QIDRT [facility] Last Admin: 11/15/18 11:30 Dose: 3 ml Methylprednisolone Sodium Succinate (Solu-Medrol) 62.5 mg IVPUSH Q12H [facility] Last Admin: 11/15/18 07:29 Dose: 62.5 mg Metoprolol Tartrate (Lopressor) Confirm Administered Dose 50 mg .ROUTE .STK-MED ONE Stop: 11/15/18 13:26 Last Admin: 11/15/18 13:47 Dose: 50 mg Phytonadione (Aquamephyton) 1 mg SUBCUT ONETIME ONE Stop: 11/15/18 08:19 Last Admin: 11/15/18 09:33 Dose: 1 mg - Exam Quality Assessment: Supplemental Oxygen General: Alert, Oriented HEENT: Mucous Membr. Moist/[place] Neck: Supple Lungs: Decreased Breath Sounds, Rhonchi Cardiovascular: Irregular Rhythm GI/Abdominal Exam: Normal Bowel Sounds, Soft, Non-Tender Extremities: Normal Inspection, No Pedal Edema Skin: Warm, Dry Neurological: No New Focal Deficit - Problem List & Annotations (1) Influenza A SNOMED Code(s): 095102703 Code(s): J10.1 - FLU DUE TO OTH IDENT INFLUENZA VIRUS W OTH RESP MANIFEST Status: Acute Priority: High Current Visit: Yes (2) Palliative care status SNOMED Code(s): 122652809 Code(s): Z51.5 - ENCOUNTER FOR PALLIATIVE CARE Status: Acute Priority: High Current Visit: Yes (3) Atrial fibrillation SNOMED Code(s): 66978255 Code(s): I48.91 - UNSPECIFIED ATRIAL FIBRILLATION Status: Chronic Priority: High Current Visit: Yes Qualifiers: Atrial fibrillation type: chronic Qualified Code(s): I48.2 - Chronic atrial fibrillation - Problem List Review Problem List Initiated/Reviewed/Updated: Yes - My Orders Last 24 Hours: My Active Orders 11/17/18 08:30 Fluconazole [Diflucan] 100 mg PO DAILY - Assessment Assessment:: Influenza A Palliative Care Status - Plan Plan:: Patient is feeling better today. States "the rattle had improved" last night but more notable again this am. She was up and ambulated last evening, states tolerated fairly well. Does continue to have congested, moist cough. Afebrile this am. WBC 6.1, CRP 11.5, Creatinine 0.5. INR still high at 4.93. Will continue with Tamiflu, steroids and nebs. Continue to hold Coumadin. Repeat labs in am. 11-17-2018 Status essentially unchanged from yesterday. States feels good at times. Is able to ambulate in room but sats do drop without oxygen. Lungs continue to have rhonchi throughout. Cough frequent but nonproductive. Is afebrile. Labs improved today, WBC 8.2, CRP 4.9. INR better today at 2.94. Is complaining of vaginal itching today that has been off and on for over a week. Start Diflucan. Encourage ambulation. Continue with Tamiflu, steroids and nebs. Repeat labs tomorrow.
[2018-11-17] MEDS: Lactated Ringers 1,000 ML IV SCH (12:43)
[2018-11-18] MEDS: Lactated Ringers 1,000 ML IV SCH ×2 (03:01→15:58)
[2018-11-18] MEDS: methylPREDNISolone Sodium Succinate 125 MG/2 ML SDV IVPUSH SCH ×2 (08:13→15:56)
[2018-11-18] MEDS: Oseltamivir 75 MG Cap PO SCH (08:15)
[2018-11-18] MEDS: Metoprolol Tartrate 25 MG Tab PO SCH ×2 (08:15→19:35)
[2018-11-18] MEDS: Fluconazole 100 MG Tab PO SCH (08:15)
[2018-11-18] MEDS: Multivitamin Tab PO SCH (08:15)
[2018-11-18] MEDS: Levalbuterol HCl 1.25 MG/3 ML Neb NEB SCH ×4 (08:17→19:37)
[2018-11-18 08:54] LABS: CHLORIDE,CL 101 mEq/L (98-106); SODIUM,NA 142 mEq/L (136-145)
[2018-11-18] MEDS ORDERED: Warfarin 5 MG Tab PO SCH (12:00)
[2018-11-18] MEDS: Acetaminophen/HYDROcodone 325-5 MG Tab PO PRN (13:00)
--- NOTE | 2018-11-18 20:16 | PCM.PN ---
- General Info Date of Service: 11/18/18 Admission Dx/Problem (Free Text): Influenza A Functional Status: Reports: Pain Controlled, Tolerating Diet, Ambulating - Review of Systems General: Reports: Weakness, Fatigue HEENT: Reports: No Symptoms Pulmonary: Reports: Shortness of Breath, Cough, Wheezing. Denies: Sputum Cardiovascular: Denies: Chest Pain, Edema, Lightheadedness Gastrointestinal: Denies: Abdominal Pain, Nausea, Vomiting Genitourinary: Reports: No Symptoms Musculoskeletal: Reports: No Symptoms Skin: Reports: No Symptoms Neurological: Reports: No Symptoms - Patient Data Vitals - Most Recent: Last Vital Signs Temp 97.9 F 11/18/18 16:00 Pulse 97 11/18/18 16:00 Resp 20 11/18/18 16:00 BP 154/83 H 11/18/18 16:00 Pulse Ox 97 11/18/18 16:00 Weight - Most Recent: 111 lb 9.6 oz I&O - Last 24 Hours: Intake & Output 11/18/18 11/18/18 11/18/18 06:59 14:59 22:59 Intake Total 1000 971 Balance 1000 971 Lab Results Last 24 Hours: Laboratory Results - last 24 hr 11/18/18 11/18/18 Range/Units 08:30 08:30 PT 18.2 H (9.7-12.3) SEC INR 1.83 H (0.92-1.18) Sodium 142 (136-145) mEq/L Potassium 3.9 (3.5-5.0) mEq/L Chloride 101 (98-106) mEq/L Carbon Dioxide 34 H (21-32) mmol/L BUN 15 (7-18) mg/dL Creatinine 0.6 (0.6-1.0) mg/dL Est Cr Clr Drug Dosing 56.19 mL/min Estimated GFR (MDRD) > 60 (>=60) mL/min Glucose 192 H D (75-99) mg/dL Calcium 8.7 (8.4-10.1) mg/dL C-Reactive Protein 3.1 H (0.2-0.8) mg/dL Med Orders - Current: Current Medications Acetaminophen (Tylenol) 650 mg PO Q4H PRN PRN Reason: Pain (Mild 1-3)/fever Hydrocodone Bitart/Acetaminophen ([place] 325-5 Mg) 1 tab PO Q6H PRN PRN Reason: Pain Last Admin: 11/18/18 13:00 Dose: 1 tab Fluconazole (Diflucan) 100 mg PO DAILY [facility] Last Admin: 11/18/18 08:15 Dose: 100 mg Lactated Ringer's (Ringers, Lactated) 1,000 mls @ 75 mls/hr IV ASDIRECTED [facility] Last Admin: 11/18/18 15:58 Dose: 75 mls/hr Levalbuterol HCl (Xopenex) 1.25 mg NEB QID [facility] Last Admin: 11/18/18 19:37 Dose: 1.25 mg Methylprednisolone Sodium Succinate (Solu-Medrol) 62.5 mg IVPUSH 0800,1600 [facility] Last Admin: 11/18/18 15:56 Dose: 62.5 mg Metoprolol Tartrate (Lopressor) 50 mg PO BID [facility] Last Admin: 11/18/18 08:15 Dose: 50 mg Multivitamins/Minerals/Vitamin C (Tab-A-Shannon) 1 tab PO DAILY [facility] Last Admin: 11/18/18 08:15 Dose: 1 tab Ondansetron HCl (Zofran Odt) 4 mg PO Q4H PRN PRN Reason: nausea, able to take PO Last Admin: 11/17/18 12:46 Dose: 4 mg Ondansetron HCl (Zofran) 4 mg IV Q4H PRN PRN Reason: Nausea/Vomiting Oseltamivir Phosphate (Tamiflu) 75 mg PO DAILY [facility] Last Admin: 11/18/18 08:15 Dose: 75 mg Sodium Chloride (Saline Flush) 10 ml FLUSH ASDIRECTED PRN PRN Reason: Keep Vein Open Temazepam (Restoril) 15 mg PO BEDTIME PRN PRN Reason: Sleep Last Admin: 11/17/18 00:44 Dose: 15 mg Warfarin Sodium (Coumadin) 5 mg PO WITHLUNCH [facility] Last Admin: 11/18/18 11:51 Dose: 5 mg Discontinued Medications Albuterol (Proventil Neb Soln) 2.5 mg NEB Q4H PRN PRN Reason: Shortness Of Breath/wheezing Albuterol/Ipratropium (Duoneb 3.0-0.5 Mg/3 Ml) 3 ml NEB ONETIME ONE Stop: 11/15/18 05:42 Last Admin: 11/15/18 05:44 Dose: 3 ml Albuterol/Ipratropium (Duoneb 3.0-0.5 Mg/3 Ml) 3 ml NEB QIDRT YAW Last Admin: 11/15/18 11:30 Dose: 3 ml Methylprednisolone Sodium Succinate (Solu-Medrol) 62.5 mg IVPUSH Q12H [facility] Last Admin: 11/15/18 07:29 Dose: 62.5 mg Metoprolol Tartrate (Lopressor) Confirm Administered Dose 50 mg .ROUTE .STK-MED ONE Stop: 11/15/18 13:26 Last Admin: 11/15/18 13:47 Dose: 50 mg Phytonadione (Aquamephyton) 1 mg SUBCUT ONETIME ONE Stop: 11/15/18 08:19 Last Admin: 11/15/18 09:33 Dose: 1 mg - Exam General: Alert, Oriented HEENT: Mucous Membr. Moist/[place] Neck: Supple Lungs: Decreased Breath Sounds, Rhonchi Cardiovascular: Irregular Rhythm GI/Abdominal Exam: Normal Bowel Sounds, Soft, Non-Tender Extremities: Normal Inspection, No Pedal Edema Skin: Warm, Dry Neurological: No New Focal Deficit - Problem List & Annotations (1) Influenza A SNOMED Code(s): 260040804 Code(s): J10.1 - FLU DUE TO OTH IDENT INFLUENZA VIRUS W OTH RESP MANIFEST Status: Acute Priority: High Current Visit: Yes (2) Palliative care status SNOMED Code(s): 883318363 Code(s): Z51.5 - ENCOUNTER FOR PALLIATIVE CARE Status: Acute Priority: High Current Visit: Yes (3) Atrial fibrillation SNOMED Code(s): 39646421 Code(s): I48.91 - UNSPECIFIED ATRIAL FIBRILLATION Status: Chronic Priority: High Current Visit: Yes Qualifiers: Atrial fibrillation type: chronic Qualified Code(s): I48.2 - Chronic atrial fibrillation - Problem List Review Problem List Initiated/Reviewed/Updated: Yes - My Orders Last 24 Hours: My Active Orders 11/18/18 09:31 PT Evaluation and Treatment [CONS] Routine 11/18/18 12:00 Warfarin [Coumadin] 5 mg PO WITHLUNCH 11/18/18 12:26 Acetaminophen/HYDROcodone [[place] 325-5 MG] 1 tab PO Q6H PRN 11/19/18 05:11 BASIC METABOLIC PANEL,BMP [CHEM] AM C-REACTIVE PROTEIN [CHEM] AM CBC WITH AUTO DIFF [HEME] AM - Assessment Assessment:: Influenza A Palliative Care Status - Plan Plan:: Patient is feeling better today. States "the rattle had improved" last night but more notable again this am. She was up and ambulated last evening, states tolerated fairly well. Does continue to have congested, moist cough. Afebrile this am. WBC 6.1, CRP 11.5, Creatinine 0.5. INR still high at 4.93. Will continue with Tamiflu, steroids and nebs. Continue to hold Coumadin. Repeat labs in am. 11-17-2018 Status essentially unchanged from yesterday. States feels good at times. Is able to ambulate in room but sats do drop without oxygen. Lungs continue to have rhonchi throughout. Cough frequent but nonproductive. Is afebrile. Labs improved today, WBC 8.2, CRP 4.9. INR better today at 2.94. Is complaining of vaginal itching today that has been off and on for over a week. Start Diflucan. Encourage ambulation. Continue with Tamiflu, steroids and nebs. Repeat labs tomorrow. 11-18-2018 Patient continues to have frequent cough, nonproductive. Still feels short of breath. Ambulates in room with dyspnea at times. Oxygen sats do still drop to 87-88% on room air. Lung sounds still note rhonchi throughout. Afebrile. Labs improved, CRP 3.1. INR down to 1.82. Continue current Tamiflu, steroids and nebs. Restart Coumadin. Monitor INR. Possible transfer to swing bed tomorrow.
[2018-11-19] MEDS: Acetaminophen/HYDROcodone 325-5 MG Tab PO PRN (00:04)
[2018-11-19] MEDS ORDERED: Levalbuterol HCl 1.25 MG/3 ML Neb NEB ONE (00:14)
[2018-11-19] MEDS ORDERED: Metoprolol Tartrate 50 MG Tab PO ONE (00:42)
[2018-11-19] MEDS: Temazepam 15 MG Cap PO PRN (01:51)
[2018-11-19 07:33] LABS: CHLORIDE,CL 100 mEq/L (98-106); SODIUM,NA 141 mEq/L (136-145)
[2018-11-19] MEDS: Levalbuterol HCl 1.25 MG/3 ML Neb NEB SCH (07:51)
[2018-11-19] MEDS: methylPREDNISolone Sodium Succinate 125 MG/2 ML SDV IVPUSH SCH (07:53)
[2018-11-19] MEDS: Multivitamin Tab PO SCH (07:56)
[2018-11-19] MEDS: Fluconazole 100 MG Tab PO SCH (07:56)
[2018-11-19] MEDS: Oseltamivir 75 MG Cap PO SCH (07:56)
[2018-11-19] MEDS: Metoprolol Tartrate 25 MG Tab PO SCH (07:56)
[2018-11-19 07:57] VITALS: BP 116/79
== END 2018-11-19 08:18 | disposition swing bed (61) | DRG 195 ==
LOC: CC.ED 05:24 → CC.MS 06:26 → UNDOADMIN 06:30
PROVIDERS: ADMIT Physician Assistant Medical; ATTEND Family Medicine
DX: J10.1 Influenza due to other identified influenza virus with other respiratory manifestations (principal); Z51.5 Encounter for palliative care; I48.2 Chronic atrial fibrillation; I10 Essential (primary) hypertension; J44.9 Chronic obstructive pulmonary disease, unspecified; M19.90 Unspecified osteoarthritis, unspecified site; F41.9 Anxiety disorder, unspecified; D64.9 Anemia, unspecified; Z96.649 Presence of unspecified artificial hip joint; F17.210 Nicotine dependence, cigarettes, uncomplicated; Z79.01 Long term (current) use of anticoagulants; Z85.118 Personal history of other malignant neoplasm of bronchus and lung; Z79.899 Other long term (current) drug therapy; Z86.718 Personal history of other venous thrombosis and embolism; Z95.5 Presence of coronary angioplasty implant and graft; Z87.442 Personal history of urinary calculi; Z98.49 Cataract extraction status, unspecified eye; Z90.49 Acquired absence of other specified parts of digestive tract; Z88.5 Allergy status to narcotic agent; Z88.8 Allergy status to other drugs, medicaments and biological substances
CPT/HCPCS: 36415; 71046; 80048; 83880; 85025; 85379; 85610; 86140; 87804; 93005; 93306; 94640; 99285; A9270-GY; J2930; J3430; J7120; J7612-GY; J7620-GY

== ENCOUNTER 2018-11-19 08:17 | Inpatient (IN) | payer MEDICARE ==
[2018-11-19] MEDS ORDERED: Ondansetron 4 MG/2 ML SDV IV PRN (11:11)
[2018-11-19] MEDS ORDERED: Ondansetron 4 MG Tab.DIS PO PRN (11:11)
[2018-11-19] MEDS ORDERED: Lactated Ringers 1,000 ML IV SCH (11:11)
[2018-11-19] MEDS ORDERED: Sodium Chloride 0.9% 10 ML Syringe FLUSH PRN ×2 (11:11)
[2018-11-19] MEDS ORDERED: Acetaminophen 325 MG Tab PO PRN (11:11)
[2018-11-19] MEDS: Warfarin 5 MG Tab PO SCH (11:43)
[2018-11-19] MEDS: Levalbuterol HCl 1.25 MG/3 ML Neb NEB SCH ×3 (11:43→20:05)
[2018-11-19] MEDS: methylPREDNISolone Sodium Succinate 125 MG/2 ML SDV IVPUSH SCH (16:23)
[2018-11-19] MEDS: Acetaminophen/HYDROcodone 325-5 MG Tab PO PRN (16:29)
[2018-11-19] MEDS: Metoprolol Tartrate 25 MG Tab PO SCH (20:05)
[2018-11-20] MEDS ORDERED: Albuterol/Ipratropium 3.0-0.5 MG/3 ML Neb Soln NEB ONE (01:12)
[2018-11-20] MEDS ORDERED: Furosemide 40 MG/4 ML VIAL IVPUSH ONE (02:05)
[2018-11-20] MEDS ORDERED: Furosemide 40 MG/4 ML VIAL ONE (02:10)
[2018-11-20] MEDS: Albuterol/Ipratropium 3.0-0.5 MG/3 ML Neb Soln NEB PRN ×2 (02:10→05:35)
[2018-11-20 05:49] LABS: CHLORIDE,CL 94 mEq/L (98-106); SODIUM,NA 138 mEq/L (136-145)
[2018-11-20] MEDS ORDERED: LORazepam 0.5 MG Tab PO ONE (06:26)
[2018-11-20] MEDS: Levalbuterol HCl 1.25 MG/3 ML Neb NEB SCH ×4 (07:54→20:08)
[2018-11-20] MEDS: Oseltamivir 75 MG Cap PO SCH (07:55)
[2018-11-20] MEDS: Metoprolol Tartrate 25 MG Tab PO SCH ×2 (07:55→20:08)
[2018-11-20] MEDS: Fluconazole 100 MG Tab PO SCH (07:58)
[2018-11-20] MEDS: Multivitamin Tab PO SCH (07:59)
[2018-11-20] MEDS: methylPREDNISolone Sodium Succinate 125 MG/2 ML SDV IVPUSH SCH ×2 (08:33→15:22)
--- NOTE | 2018-11-20 08:54 | PCM.PN ---
- General Info Date of Service: 11/20/18 Admission Dx/Problem (Free Text): Influenza A Subjective Update: Brook is an 83 year old female who was admitted to the hospital 11/15/2017 with Influenza A and then admitted swing bed 11/19/2017. Was called by nursing staff multiple times throughout the night with reports of patient's worsening shortness of breath and hypoxia. Did have lab work, EKG, and CXR completed. ProBNP elevated from 1311 on admit to 4851 today. EKG from 0200 revealed NSR and EKG mid morning showed atrib fibrillation with RVR of 155. Patient has known history of atrial fibrillation and is on chronic anticoagulation. INR today supratherapeutic. Upon rounds, patient is resting comfortably in bed. She reports she is more short of breath than she has been in days prior. Does not have any chest pain. Breathing does not appear labored. She had previously been maintaining O2 sats on 2 L O2. She is currently maintaining O2 sats on 4 L O2 via NC. Does have audible rales to LLL, expiratory wheezing throughout. She reports the DuoNebs did help her breathing some. Telemetry was ordered. Pulse has increased to 160' s. She has been afebrile. Functional Status: Reports: Pain Controlled, Tolerating Diet, Ambulating, Urinating, New Symptoms (worsening shortness of breath, rales to LLL, pulse increased) - Review of Systems General: Reports: Fatigue. Denies: Fever, Weakness, Malaise, Chills HEENT: Reports: Rhinitis. Denies: Headaches Pulmonary: Reports: Shortness of Breath, Cough, Sputum, Wheezing. Denies: Hemoptysis Cardiovascular: Reports: Palpitations, Dyspnea on Exertion. Denies: Chest Pain , Orthopnea, Edema, Lightheadedness Gastrointestinal: Denies: Abdominal Pain, Diarrhea, Nausea, Vomiting Genitourinary: Reports: No Symptoms Musculoskeletal: Reports: No Symptoms Skin: Reports: No Symptoms Neurological: Reports: No Symptoms Psychiatric: Reports: No Symptoms - Patient Data Vitals - Most Recent: Last Vital Signs Temp 98.7 F 11/20/18 08:00 Pulse 160 H 11/20/18 08:00 Resp 18 11/20/18 08:00 BP 137/91 H 11/20/18 08:00 Pulse Ox 94 L 11/20/18 08:00 Weight - Most Recent: 115 lb Lab Results Last 24 Hours: Laboratory Results - last 24 hr 11/19/18 11/20/18 11/20/18 Range/Units 11:11 05:30 05:30 WBC 12.2 H (5.0-10.0) 10^3/uL RBC 5.11 (4.00-5.50) 10^6/uL Hgb 14.5 (12.0-16.0) g/dL Hct 43.6 (37.0-47.0) % MCV 85.3 (82.0-94.0) fL MCH 28.4 (27.0-32.0) pg MCHC 33.3 (33.0-38.0) g/dL RDW Coeff of Nadine 13.8 (11.0-15.0) % Plt Count 242 (150-400) 10^3/uL Neut % (Auto) 88.7 H (35-85) % Lymph % (Auto) 2.5 L (10-55) % [place] % (Auto) 8.8 (0-16) % Eos % (Auto) 0 (0-5) % Baso % (Auto) 0 (0-3) % Neut # (Auto) 10.82 H (1.80-7.00) 10^3/uL Lymph # (Auto) 0.30 L (1.00-4.80) 10^3/uL [place] # (Auto) 1.07 H (0.00-0.80) 10^3/uL Eos # (Auto) 0.00 (0.00-0.45) 10^3/uL Baso # (Auto) 0.00 10^3/uL PT 21.4 H (9.7-12.3) SEC INR 2.18 H (0.92-1.18) D-Dimer, Quantitative 0.49 (0.00-0.50) Sodium (136-145) mEq/L Potassium (3.5-5.0) mEq/L Chloride (98-106) mEq/L Carbon Dioxide (21-32) mmol/L BUN (7-18) mg/dL Creatinine (0.6-1.0) mg/dL Est Cr Clr Drug Dosing mL/min Estimated GFR (MDRD) (>=60) mL/min Glucose (75-99) mg/dL Calcium (8.4-10.1) mg/dL Troponin I (0.00-0.06) ng/mL C-Reactive Protein (0.2-0.8) mg/dL NT-Pro-B Natriuret Pep (0-1000) pg/mL 11/20/18 11/20/18 11/20/18 Range/Units 05:30 06:25 08:17 WBC (5.0-10.0) 10^3/uL RBC (4.00-5.50) 10^6/uL Hgb (12.0-16.0) g/dL Hct (37.0-47.0) % MCV (82.0-94.0) fL MCH (27.0-32.0) pg MCHC (33.0-38.0) g/dL RDW Coeff of Nadine (11.0-15.0) % Plt Count (150-400) 10^3/uL Neut % (Auto) (35-85) % Lymph % (Auto) (10-55) % [place] % (Auto) (0-16) % Eos % (Auto) (0-5) % Baso % (Auto) (0-3) % Neut # (Auto) (1.80-7.00) 10^3/uL Lymph # (Auto) (1.00-4.80) 10^3/uL [place] # (Auto) (0.00-0.80) 10^3/uL Eos # (Auto) (0.00-0.45) 10^3/uL Baso # (Auto) 10^3/uL PT 34.3 H (9.7-12.3) SEC INR 3.63 H (0.92-1.18) D-Dimer, Quantitative (0.00-0.50) Sodium 138 (136-145) mEq/L Potassium 3.3 L (3.5-5.0) mEq/L Chloride 94 L (98-106) mEq/L Carbon Dioxide 38 H (21-32) mmol/L BUN 15 (7-18) mg/dL Creatinine 0.6 (0.6-1.0) mg/dL Est Cr Clr Drug Dosing 56.19 mL/min Estimated GFR (MDRD) > 60 (>=60) mL/min Glucose 288 H (75-99) mg/dL Calcium 8.8 (8.4-10.1) mg/dL Troponin I 0.037 (0.00-0.06) ng/mL C-Reactive Protein 2.4 H (0.2-0.8) mg/dL NT-Pro-B Natriuret Pep 4851 H (0-1000) pg/mL Med Orders - Current: Current Medications Acetaminophen (Tylenol) 650 mg PO Q4H PRN PRN Reason: Pain (Mild 1-3)/fever Hydrocodone Bitart/Acetaminophen ([place] 325-5 Mg) 1 tab PO Q6H PRN PRN Reason: Pain Last Admin: 11/19/18 16:29 Dose: 1 tab Albuterol/Ipratropium (Duoneb 3.0-0.5 Mg/3 Ml) 3 ml NEB Q4H PRN PRN Reason: Dyspnea Last Admin: 11/20/18 05:35 Dose: 3 ml Fluconazole (Diflucan) 100 mg PO DAILY [facility] Last Admin: 11/20/18 07:58 Dose: 100 mg Levalbuterol HCl (Xopenex) 1.25 mg NEB QID [facility] Last Admin: 11/20/18 07:54 Dose: 1.25 mg Methylprednisolone Sodium Succinate (Solu-Medrol) 62.5 mg IVPUSH 0800,1600 [facility] Last Admin: 11/20/18 08:33 Dose: 62.5 mg Metoprolol Tartrate (Lopressor) 50 mg PO BID [facility] Last Admin: 11/20/18 07:55 Dose: 50 mg Multivitamins/Minerals/Vitamin C (Tab-A-Shannon) 1 tab PO DAILY [facility] Last Admin: 11/20/18 07:59 Dose: 1 tab Ondansetron HCl (Zofran Odt) 4 mg PO Q4H PRN PRN Reason: nausea, able to take PO Ondansetron HCl (Zofran) 4 mg IV Q4H PRN PRN Reason: Nausea/Vomiting Oseltamivir Phosphate (Tamiflu) 75 mg PO DAILY [facility] Last Admin: 11/20/18 07:55 Dose: 75 mg Sodium Chloride (Saline Flush) 10 ml FLUSH ASDIRECTED PRN PRN Reason: Keep Vein Open Temazepam (Restoril) 15 mg PO BEDTIME PRN PRN Reason: Sleep Warfarin Sodium (Coumadin) 5 mg PO WITHLUNCH [facility] Last Admin: 11/19/18 11:43 Dose: 5 mg Discontinued Medications Albuterol/Ipratropium (Duoneb 3.0-0.5 Mg/3 Ml) 3 ml NEB ONETIME ONE Stop: 11/20/18 01:13 Last Admin: 11/20/18 01:15 Dose: 3 ml Furosemide (Lasix) 40 mg IVPUSH ONETIME ONE Stop: 11/20/18 02:06 Last Admin: 11/20/18 02:10 Dose: 40 mg Furosemide (Lasix) Confirm Administered Dose 40 mg .ROUTE .STK-MED ONE Stop: 11/20/18 02:11 Last Admin: 11/20/18 02:18 Dose: Not Given Lactated Ringer's (Ringers, Lactated) 1,000 mls @ 75 mls/hr IV ASDIRECTED [facility] Stop: 11/19/18 11:30 Lorazepam (Ativan) 0.5 mg PO ONETIME ONE Stop: 11/20/18 06:27 Last Admin: 11/20/18 06:39 Dose: 0.5 mg Sodium Chloride (Saline Flush) 10 ml FLUSH ASDIRECTED PRN PRN Reason: Keep Vein Open - Exam Quality Assessment: Supplemental Oxygen, DVT Prophylaxis (Coumadin) General: Alert, Oriented, Mild Distress Neck: Supple, Trachea Midline Lungs: Normal Respiratory Effort, Rales (LLL), Rhonchi, Wheezing Cardiovascular: Irregular Rhythm, Tachycardia GI/Abdominal Exam: Normal Bowel Sounds, Soft, Non-Tender, No Organomegaly, No Distention, No Abnormal Bruit, No Mass, Pelvis Stable Back Exam: Normal Inspection, Full Range of Motion Extremities: Normal Inspection, Normal Range of Motion, Non-Tender, No Pedal Edema, Normal Capillary Refill Neurological: No New Focal Deficit Psy/Mental Status: Alert, Normal Affect, Normal Mood - Problem List & Annotations (1) Influenza A SNOMED Code(s): 486287329 Code(s): J10.1 - FLU DUE TO OTH IDENT INFLUENZA VIRUS W OTH RESP MANIFEST Status: Acute Priority: High Current Visit: No (2) Atrial fibrillation SNOMED Code(s): 41357336 Code(s): I48.91 - UNSPECIFIED ATRIAL FIBRILLATION Status: Chronic Priority: High Current Visit: No Qualifiers: Atrial fibrillation type: chronic Qualified Code(s): I48.2 - Chronic atrial fibrillation (3) Palliative care status SNOMED Code(s): 403529991 Code(s): Z51.5 - ENCOUNTER FOR PALLIATIVE CARE Status: Acute Priority: High Current Visit: No - Problem List Review Problem List Initiated/Reviewed/Updated: Yes - My Orders Last 24 Hours: My Active Orders 11/20/18 01:40 EKG Documentation Completion [RC] STAT 11/20/18 02:03 Albuterol/Ipratropium [DuoNeb 3.0-0.5 MG/3 ML] 3 ml NEB Q4H PRN 11/20/18 02:04 RT Aerosol Therapy [RC] ASDIRECTED 11/20/18 08:47 Chest 2V [CR] Stat EKG 12 Lead [EK] Routine - Assessment Assessment:: 1) Influenza A 2) Atrial Fibrillation with RVR 3) Palliative Care 4) Elevated Pro-BNP - Plan Plan:: EKG afib with RVR. ProBNP increased from 1311 to 1458. Labs otherwise stable. Chest Xray reveals new opacity adjacent to left heart border in comparison with previous CXR. ? atelectasis vs. early infiltrate. Will add azithromycin and rocephin. WBC increased to 12.2. Continue Tamiflu. No pleural effusion. Continue nebs and steroids for now. Titrate O2 to maintain O2 sats > 92%. Consulted with Dr. Ghosh due to afib with RVR and worsening dyspnea. Patient is anticoagulated with supratherapeutic INR. Hold Coumadin x 2 days. Will start digoxin 250 mcg x 4 doses for rate control. BP stable low. Continue metoprolol. IV Lasix 40 mg x 2 doses. Potassium supplement due to K 3.3 today. Repeat labs in am. Inappropriate for discharge due to oxygen needs and antibiotic/nebulizer/ steroid use.
[2018-11-20] MEDS: Potassium Chloride 10 MEQ Tab.ER PO SCH ×2 (09:25→17:51)
[2018-11-20] MEDS: Furosemide 40 MG/4 ML VIAL IVPUSH SCH (09:26)
[2018-11-20] MEDS: Digoxin 250 MCG Tab PO SCH ×3 (11:08→22:40)
[2018-11-20] MEDS: cefTRIAXone 1 GM Vial IVPUSH SCH (16:42)
[2018-11-20] MEDS: Azithromycin 500 MG in Sodium Chloride 0.9% 250 ML IV SCH (16:42)
[2018-11-21] MEDS ORDERED: Digoxin 250 MCG Tab PO ONE (04:45)
[2018-11-21] MEDS: Potassium Chloride 10 MEQ Tab.ER PO SCH ×2 (08:16→17:15)
[2018-11-21] MEDS: Fluconazole 100 MG Tab PO SCH (08:16)
[2018-11-21] MEDS: Metoprolol Tartrate 25 MG Tab PO SCH ×2 (08:17→19:52)
[2018-11-21 08:19] LABS: CHLORIDE,CL 98 mEq/L (98-106); SODIUM,NA 138 mEq/L (136-145)
[2018-11-21] MEDS: Multivitamin Tab PO SCH (08:19)
[2018-11-21] MEDS: methylPREDNISolone Sodium Succinate 125 MG/2 ML SDV IVPUSH SCH (08:19)
[2018-11-21] MEDS: Oseltamivir 75 MG Cap PO SCH (08:19)
[2018-11-21] MEDS: Furosemide 40 MG/4 ML VIAL IVPUSH SCH (08:20)
[2018-11-21] MEDS: Levalbuterol HCl 1.25 MG/3 ML Neb NEB SCH ×5 (08:20→20:18)
[2018-11-21] MEDS: Digoxin 125 MCG Tab PO SCH (12:01)
--- NOTE | 2018-11-21 13:45 | PCM.PN ---
- General Info Date of Service: 11/21/18 Admission Dx/Problem (Free Text): Influenza A Subjective Update: Brook reports she is feeling less short of breath this morning. Was noted to be in afib with RVR yesterday and also had small infiltrate on CXR. Was started on Lasix, digoxin, and IV antibiotics. Pulse did improve following digoxin, but again increased to 140s-150s around 0430 this morning. Pulse has ranged 120s- 150s throughout morning. Patient denies any chest pain, dizziness, palpitations. She does feel her breathing is improving. Has been afebrile. Has been eating good. No other complaints. Has been maintaining O2 sats on 2 L oxygen. Was weaned from 4L yesterday. Functional Status: Reports: Pain Controlled, Tolerating Diet, Ambulating, Urinating - Review of Systems General: Reports: Fatigue. Denies: Fever, Weakness, Chills HEENT: Reports: Rhinitis. Denies: Sore Throat Pulmonary: Reports: Shortness of Breath, Cough, Sputum. Denies: Pleuritic Chest Pain, Hemoptysis Cardiovascular: Reports: Dyspnea on Exertion. Denies: Chest Pain, Palpitations , Edema, Lightheadedness Gastrointestinal: Reports: No Symptoms. Denies: Abdominal Pain, Decreased Appetite, Diarrhea, Nausea, Vomiting Genitourinary: Reports: No Symptoms. Denies: Dysuria, Frequency, Urgency Musculoskeletal: Reports: No Symptoms Skin: Reports: No Symptoms Neurological: Reports: No Symptoms Psychiatric: Reports: No Symptoms - Patient Data Vitals - Most Recent: Last Vital Signs Temp 98.7 F 11/21/18 08:00 Pulse 122 H 11/21/18 12:01 Resp 18 11/21/18 08:00 BP 154/72 H 11/21/18 08:17 Pulse Ox 96 11/21/18 08:00 Weight - Most Recent: 111 lb 6.4 oz Lab Results Last 24 Hours: Laboratory Results - last 24 hr 11/21/18 11/21/18 11/21/18 Range/Units 08:17 08:17 08:17 WBC 13.7 H (5.0-10.0) 10^3/uL RBC 5.22 (4.00-5.50) 10^6/uL Hgb 14.5 (12.0-16.0) g/dL Hct 45.1 (37.0-47.0) % MCV 86.4 (82.0-94.0) fL MCH 27.8 (27.0-32.0) pg MCHC 32.2 L (33.0-38.0) g/dL RDW Coeff of Nadine 14.0 (11.0-15.0) % Plt Count 234 (150-400) 10^3/uL Add Manual Diff Yes Neutrophils % (Manual) 88 H (35-85) % Band Neutrophils % 3 (0-5) % Lymphocytes % (Manual) 4 L (21-55) % Monocytes % (Manual) 2 (2-12) % Metamyelocytes % 3 % Absolute Neutrophils 12.47 H (1.80-7.00) 10^3/uL Lymphocytes # (Manual) 0.55 L (1.00-4.80) 10^3/uL Monocytes # (Manual) 0.27 (0.00-0.80) 10^3/uL Reactive Lymphocytes Occasional H (NOT SEEN) Vacuolated Monocytes Few (NOT SEEN) PT 32.1 H (9.7-12.3) SEC INR 3.38 H (0.92-1.18) Sodium 138 (136-145) mEq/L Potassium 4.2 D (3.5-5.0) mEq/L Chloride 98 (98-106) mEq/L Carbon Dioxide 36 H (21-32) mmol/L BUN 23 H D (7-18) mg/dL Creatinine 0.5 L (0.6-1.0) mg/dL Est Cr Clr Drug Dosing 67.43 mL/min Estimated GFR (MDRD) > 60 (>=60) mL/min Glucose 200 H D (75-99) mg/dL Calcium 9.1 (8.4-10.1) mg/dL C-Reactive Protein 2.4 H (0.2-0.8) mg/dL Med Orders - Current: Current Medications Acetaminophen (Tylenol) 650 mg PO Q4H PRN PRN Reason: Pain (Mild 1-3)/fever Hydrocodone Bitart/Acetaminophen ([place] 325-5 Mg) 1 tab PO Q6H PRN PRN Reason: Pain Last Admin: 11/19/18 16:29 Dose: 1 tab Ceftriaxone Sodium (Rocephin) 1 gm IVPUSH Q24H [facility] Last Admin: 11/20/18 16:42 Dose: 1 gm Digoxin (Lanoxin) 125 mcg PO DAILY@1200 [facility] Last Admin: 11/21/18 12:01 Dose: 125 mcg Fluconazole (Diflucan) 100 mg PO DAILY [facility] Last Admin: 11/21/18 08:16 Dose: 100 mg Furosemide (Lasix) 40 mg IVPUSH Q24H [facility] Last Admin: 11/21/18 08:20 Dose: 40 mg Azithromycin 500 mg/ Sodium (Chloride) 250 mls @ 250 mls/hr IV Q24H [facility] Last Admin: 11/20/18 16:42 Dose: 250 mls/hr Levalbuterol HCl (Xopenex) 1.25 mg NEB QID [facility] Last Admin: 11/21/18 12:01 Dose: 1.25 mg Metoprolol Tartrate (Lopressor) 50 mg PO BID [facility] Last Admin: 11/21/18 08:17 Dose: 50 mg Multivitamins/Minerals/Vitamin C (Tab-A-Shannon) 1 tab PO DAILY [facility] Last Admin: 11/21/18 08:19 Dose: 1 tab Ondansetron HCl (Zofran Odt) 4 mg PO Q4H PRN PRN Reason: nausea, able to take PO Ondansetron HCl (Zofran) 4 mg IV Q4H PRN PRN Reason: Nausea/Vomiting Oseltamivir Phosphate (Tamiflu) 75 mg PO DAILY [facility] Last Admin: 11/21/18 08:19 Dose: 75 mg Potassium Chloride (Klor-Con 10) 20 meq PO BIDMEALS [facility] Last Admin: 11/21/18 08:16 Dose: 20 meq Sodium Chloride (Saline Flush) 10 ml FLUSH ASDIRECTED PRN PRN Reason: Keep Vein Open Temazepam (Restoril) 15 mg PO BEDTIME PRN PRN Reason: Sleep Warfarin Sodium (Coumadin) 5 mg PO WITHLUNCH [facility] Last Admin: 11/19/18 11:43 Dose: 5 mg Discontinued Medications Albuterol/Ipratropium (Duoneb 3.0-0.5 Mg/3 Ml) 3 ml NEB ONETIME ONE Stop: 11/20/18 01:13 Last Admin: 11/20/18 01:15 Dose: 3 ml Albuterol/Ipratropium (Duoneb 3.0-0.5 Mg/3 Ml) 3 ml NEB Q4H PRN PRN Reason: Dyspnea Last Admin: 11/20/18 05:35 Dose: 3 ml Digoxin (Lanoxin) 250 mcg PO Q6H [facility] Stop: 11/21/18 04:46 Last Admin: 11/20/18 22:40 Dose: 250 mcg Digoxin (Lanoxin) 250 mcg PO ONETIME ONE Stop: 11/21/18 04:46 Last Admin: 11/21/18 04:29 Dose: 250 mcg Furosemide (Lasix) 40 mg IVPUSH ONETIME ONE Stop: 11/20/18 02:06 Last Admin: 11/20/18 02:10 Dose: 40 mg Furosemide (Lasix) Confirm Administered Dose 40 mg .ROUTE .STK-MED ONE Stop: 11/20/18 02:11 Last Admin: 11/20/18 02:18 Dose: Not Given Lactated Ringer's (Ringers, Lactated) 1,000 mls @ 75 mls/hr IV ASDIRECTED [facility] Stop: 11/19/18 11:30 Lorazepam (Ativan) 0.5 mg PO ONETIME ONE Stop: 11/20/18 06:27 Last Admin: 11/20/18 06:39 Dose: 0.5 mg Methylprednisolone Sodium Succinate (Solu-Medrol) 62.5 mg IVPUSH 0800,1600 [facility] Last Admin: 11/21/18 08:19 Dose: 62.5 mg Sodium Chloride (Saline Flush) 10 ml FLUSH ASDIRECTED PRN PRN Reason: Keep Vein Open - Exam Quality Assessment: Supplemental Oxygen General: Alert, Oriented, No Acute Distress Neck: Supple Lungs: Normal Respiratory Effort, Decreased Breath Sounds, Rhonchi, Wheezing ( expiratory) Cardiovascular: Irregular Rhythm, Tachycardia GI/Abdominal Exam: Normal Bowel Sounds, Soft, Non-Tender, No Organomegaly, No Distention, No Abnormal Bruit, No Mass, Pelvis Stable Extremities: Normal Inspection, Normal Range of Motion, Non-Tender, No Pedal Edema, Normal Capillary Refill Skin: Warm, Dry Neurological: No New Focal Deficit Psy/Mental Status: Alert, Normal Affect, Normal Mood - Problem List & Annotations (1) Influenza A SNOMED Code(s): 263805055 Code(s): J10.1 - FLU DUE TO OTH IDENT INFLUENZA VIRUS W OTH RESP MANIFEST Status: Acute Priority: High Current Visit: No (2) Atrial fibrillation SNOMED Code(s): 70542545 Code(s): I48.91 - UNSPECIFIED ATRIAL FIBRILLATION Status: Chronic Priority: High Current Visit: No Qualifiers: Atrial fibrillation type: chronic Qualified Code(s): I48.2 - Chronic atrial fibrillation Annotation/Comment:: with RVR (3) Palliative care status SNOMED Code(s): 407654224 Code(s): Z51.5 - ENCOUNTER FOR PALLIATIVE CARE Status: Acute Priority: High Current Visit: No (4) Pneumonia due to H1N1 influenza SNOMED Code(s): 436616037090970 Code(s): J10.00 - FLU DUE TO OTH IDENT FLU VIRUS W UNSP TYPE OF PNEUMONIA Status: Acute Current Visit: Yes - Problem List Review Problem List Initiated/Reviewed/Updated: Yes - My Orders Last 24 Hours: My Active Orders 11/20/18 16:00 Azithromycin [Zithromax] 500 mg Sodium Chloride 0.9% [Normal Saline] 250 ml IV Q24H cefTRIAXone [Rocephin] 1 gm IVPUSH Q24H 11/21/18 12:00 Digoxin [Lanoxin] 125 mcg PO DAILY@1200 11/22/18 04:48 CRP [C-REACTIVE PROTEIN] [CHEM] DAILY 11/22/18 05:11 Chest 2V [CR] AM 11/23/18 04:48 CRP [C-REACTIVE PROTEIN] [CHEM] DAILY - Assessment Assessment:: 1) Influenza A with Pneumonia 2) Atrial Fibrillation with RVR 3) Palliative Care - Plan Plan:: Patients heart rate improved following 1st dose of digoxin yesterday. Was called by nursing staff that patients pulse increased to 140s-150s at 430 am this morning. Pulse has been ranging 120-150s this morning. BP stable. Start daily digoxin. Continue metoprolol. WBC increased from 12.2. to 13.7. CRP stable at 2.4. K improved to 4.2. Did consult via phone with Dr. Ghosh to update on patient's status. Continue current meds. D/c Duonebs, steroids, and Lasix. Patient has had good output. Continue antibiotics. Repeat labs and CXR in am. INR remains supratherapeutic at 3.38. Continue to hold Coumadin. Inappropriate for discharge due to oxygen needs and antibiotic/nebulizer/ steroid use.
[2018-11-21] MEDS ORDERED: Levalbuterol HCl 1.25 MG/3 ML Neb NEB PRN (14:08)
[2018-11-21] MEDS ORDERED: LORazepam 0.5 MG Tab PO PRN (14:51)
[2018-11-21] MEDS: cefTRIAXone 1 GM Vial IVPUSH SCH (16:02)
[2018-11-21] MEDS: Azithromycin 500 MG in Sodium Chloride 0.9% 250 ML IV SCH (16:02)
[2018-11-21] MEDS ORDERED: Digoxin 125 MCG Tab PO ONE (19:15)
--- NOTE | 2018-11-21 19:19 | PCM.DCSUM1 ---
Discharge Summary - Hospital Course Free Text/Narrative:: Patient presented to ER with complaints of increased shortness of breath. Had not felt well now for a week. She had increased work of breathing. Has had very frequent, moist, nonproductive cough. Low grade fevers. Chest has been "rattly". She was in to see Pam Maharaj on , felt it was viral infection and started on prednisone. Took 3 doses of that but does not feel well with it , "got goofy". Has been using nebulizer treatments since as well but not seeing much improvement. Labs done did show positive Influenza A. Admitted and started on Tamiflu, steroids and nebs. - Discharge Data Discharge Date: 11/19/18 Discharge Disposition: DC/Tfer W/I [facility] [place] [id number] Condition: Good - Patient Summary/Data Complications: none Consults: Consultations 11/19/18 11:11 PT Evaluation and Treatment [CONS] Routine Hospital Course: Patient presented with shortness of breath and activity intolerance. She had significant rhonchi in her lungs and decreased air exchange. She was noted to have positive Influenza A. INR was high so Coumadin was held and 1 mg of Vitamin K was given. She has started to see improvement now, wheezing and rhonchi much less prominent now today. Does still get hypoxic when oxygen is decreased below 2 liters. Ambulating short distances in room and tolerating well with oxygen. Fevers suppressed. INR is now stabilized, Coumadin was resumed. ProBNP was mildly elevated at 1300, echocardiogram was done, which showed a high ejection fracture, no concerns. Will transfer to [facility] for ongoing strengthening with PT. Continue nebs. Wean oxygen as able. - Patient Instructions Diet: Usual Diet as Tolerated Activity: As Tolerated - Discharge Plan *PRESCRIPTION DRUG MONITORING PROGRAM REVIEWED*: No *COPY OF PRESCRIPTION DRUG MONITORING REPORT IN PATIENT RIGOBERTO: No Home Medications: Home Meds Metoprolol Tartrate [Lopressor] 50 mg PO BID 02/08/15 [History] Multivitamin [Daily Vitamin] 1 each PO DAILY 03/12/15 [History] Albuterol/Ipratropium [DuoNeb 3.0-0.5 MG/3 ML] 3 ml NEB QIDRT PRN 11/15/18 [ History] Warfarin [Coumadin] 5 mg PO ASDIRECTED 11/15/18 [History] - Discharge Summary/Plan Comment DC Time >30 min.: No - General Info Date of Service: 11/19/18 Admission Dx/Problem (Free Text: Influenza A Functional Status: Reports: Pain Controlled, Tolerating Diet, Ambulating - Review of Systems General: Reports: Weakness HEENT: Reports: No Symptoms Pulmonary: Reports: Shortness of Breath, Cough, Sputum Cardiovascular: Denies: Chest Pain, Edema, Lightheadedness Gastrointestinal: Denies: Abdominal Pain, Nausea, Vomiting Genitourinary: Reports: No Symptoms Musculoskeletal: Reports: No Symptoms Skin: Reports: No Symptoms Neurological: Reports: No Symptoms - Patient Data Vitals - Most Recent: Last Vital Signs Temp 98.2 F 11/21/18 16:00 Pulse 148 H 11/21/18 16:00 Resp 22 H 11/21/18 16:00 BP 105/64 11/21/18 16:00 Pulse Ox 97 11/21/18 16:00 Weight - Most Recent: 111 lb 6.4 oz Lab Results - Last 24 hrs: Laboratory Results - last 24 hr 11/21/18 11/21/18 11/21/18 Range/Units 08:17 08:17 08:17 WBC 13.7 H (5.0-10.0) 10^3/uL RBC 5.22 (4.00-5.50) 10^6/uL Hgb 14.5 (12.0-16.0) g/dL Hct 45.1 (37.0-47.0) % MCV 86.4 (82.0-94.0) fL MCH 27.8 (27.0-32.0) pg MCHC 32.2 L (33.0-38.0) g/dL RDW Coeff of Nadine 14.0 (11.0-15.0) % Plt Count 234 (150-400) 10^3/uL Add Manual Diff Yes Neutrophils % (Manual) 88 H (35-85) % Band Neutrophils % 3 (0-5) % Lymphocytes % (Manual) 4 L (21-55) % Monocytes % (Manual) 2 (2-12) % Metamyelocytes % 3 % Absolute Neutrophils 12.47 H (1.80-7.00) 10^3/uL Lymphocytes # (Manual) 0.55 L (1.00-4.80) 10^3/uL Monocytes # (Manual) 0.27 (0.00-0.80) 10^3/uL Reactive Lymphocytes Occasional H (NOT SEEN) Vacuolated Monocytes Few (NOT SEEN) PT 32.1 H (9.7-12.3) SEC INR 3.38 H (0.92-1.18) Sodium 138 (136-145) mEq/L Potassium 4.2 D (3.5-5.0) mEq/L Chloride 98 (98-106) mEq/L Carbon Dioxide 36 H (21-32) mmol/L BUN 23 H D (7-18) mg/dL Creatinine 0.5 L (0.6-1.0) mg/dL Est Cr Clr Drug Dosing 67.43 mL/min Estimated GFR (MDRD) > 60 (>=60) mL/min Glucose 200 H D (75-99) mg/dL Calcium 9.1 (8.4-10.1) mg/dL C-Reactive Protein 2.4 H (0.2-0.8) mg/dL Med Orders - Current: Current Medications Acetaminophen (Tylenol) 650 mg PO Q4H PRN PRN Reason: Pain (Mild 1-3)/fever Hydrocodone Bitart/Acetaminophen ([place] 325-5 Mg) 1 tab PO Q6H PRN PRN Reason: Pain Last Admin: 11/19/18 16:29 Dose: 1 tab Ceftriaxone Sodium (Rocephin) 1 gm IVPUSH Q24H [facility] Last Admin: 11/21/18 16:02 Dose: 1 gm Digoxin (Lanoxin) 125 mcg PO DAILY@1200 [facility] Last Admin: 11/21/18 12:01 Dose: 125 mcg Fluconazole (Diflucan) 100 mg PO DAILY [facility] Last Admin: 11/21/18 08:16 Dose: 100 mg Azithromycin 500 mg/ Sodium (Chloride) 250 mls @ 250 mls/hr IV Q24H [facility] Last Admin: 11/21/18 16:02 Dose: 250 mls/hr Levalbuterol HCl (Xopenex) 1.25 mg NEB QID [facility] Last Admin: 11/21/18 17:24 Dose: Not Given Levalbuterol HCl (Xopenex) 1.25 mg NEB Q4H PRN PRN Reason: Dyspnea Lorazepam (Ativan) 0.5 mg PO Q6H PRN PRN Reason: Anxiety Metoprolol Tartrate (Lopressor) 50 mg PO BID [facility] Last Admin: 11/21/18 08:17 Dose: 50 mg Multivitamins/Minerals/Vitamin C (Tab-A-Shannon) 1 tab PO DAILY [facility] Last Admin: 11/21/18 08:19 Dose: 1 tab Ondansetron HCl (Zofran Odt) 4 mg PO Q4H PRN PRN Reason: nausea, able to take PO Ondansetron HCl (Zofran) 4 mg IV Q4H PRN PRN Reason: Nausea/Vomiting Oseltamivir Phosphate (Tamiflu) 75 mg PO DAILY [facility] Last Admin: 11/21/18 08:19 Dose: 75 mg Potassium Chloride (Klor-Con 10) 20 meq PO BIDMEALS [facility] Last Admin: 11/21/18 17:15 Dose: 20 meq Sodium Chloride (Saline Flush) 10 ml FLUSH ASDIRECTED PRN PRN Reason: Keep Vein Open Temazepam (Restoril) 15 mg PO BEDTIME PRN PRN Reason: Sleep Warfarin Sodium (Coumadin) 5 mg PO WITHLUNCH [facility] Last Admin: 11/19/18 11:43 Dose: 5 mg Discontinued Medications Albuterol/Ipratropium (Duoneb 3.0-0.5 Mg/3 Ml) 3 ml NEB ONETIME ONE Stop: 11/20/18 01:13 Last Admin: 11/20/18 01:15 Dose: 3 ml Albuterol/Ipratropium (Duoneb 3.0-0.5 Mg/3 Ml) 3 ml NEB Q4H PRN PRN Reason: Dyspnea Last Admin: 11/20/18 05:35 Dose: 3 ml Digoxin (Lanoxin) 250 mcg PO Q6H [facility] Stop: 11/21/18 04:46 Last Admin: 11/20/18 22:40 Dose: 250 mcg Digoxin (Lanoxin) 250 mcg PO ONETIME ONE Stop: 11/21/18 04:46 Last Admin: 11/21/18 04:29 Dose: 250 mcg Furosemide (Lasix) 40 mg IVPUSH ONETIME ONE Stop: 11/20/18 02:06 Last Admin: 11/20/18 02:10 Dose: 40 mg Furosemide (Lasix) Confirm Administered Dose 40 mg .ROUTE .STK-MED ONE Stop: 11/20/18 02:11 Last Admin: 11/20/18 02:18 Dose: Not Given Furosemide (Lasix) 40 mg IVPUSH Q24H [facility] Last Admin: 11/21/18 08:20 Dose: 40 mg Lactated Ringer's (Ringers, Lactated) 1,000 mls @ 75 mls/hr IV ASDIRECTED [facility] Stop: 11/19/18 11:30 Lorazepam (Ativan) 0.5 mg PO ONETIME ONE Stop: 11/20/18 06:27 Last Admin: 11/20/18 06:39 Dose: 0.5 mg Methylprednisolone Sodium Succinate (Solu-Medrol) 62.5 mg IVPUSH 0800,1600 [facility] Last Admin: 11/21/18 08:19 Dose: 62.5 mg Sodium Chloride (Saline Flush) 10 ml FLUSH ASDIRECTED PRN PRN Reason: Keep Vein Open - Exam Quality Assessment: Reports: Supplemental Oxygen General: Reports: Alert, Oriented HEENT: Reports: Mucous Membr. Moist/[place] Neck: Reports: Supple Lungs: Reports: Decreased Breath Sounds, Rhonchi Cardiovascular: Reports: Irregular Rhythm GI/Abdominal Exam: Normal Bowel Sounds, Soft, Non-Tender Extremities: Normal Inspection, No Pedal Edema Skin: Reports: Warm, Dry Neurological: Reports: No New Focal Deficit
[2018-11-22] MEDS: Acetaminophen/HYDROcodone 325-5 MG Tab PO PRN ×2 (06:32→16:16)
[2018-11-22] MEDS: Multivitamin Tab PO SCH (08:14)
[2018-11-22] MEDS: Levalbuterol HCl 1.25 MG/3 ML Neb NEB SCH ×4 (08:14→20:19)
[2018-11-22] MEDS: Potassium Chloride 10 MEQ Tab.ER PO SCH ×2 (08:14→17:30)
[2018-11-22] MEDS: Metoprolol Tartrate 25 MG Tab PO SCH ×2 (08:14→20:17)
[2018-11-22] MEDS: Oseltamivir 75 MG Cap PO SCH (08:15)
[2018-11-22] MEDS: Fluconazole 100 MG Tab PO SCH (08:15)
[2018-11-22 08:19] LABS: CHLORIDE,CL 99 mEq/L (98-106); SODIUM,NA 141 mEq/L (136-145)
[2018-11-22] MEDS: Digoxin 125 MCG Tab PO SCH (11:39)
[2018-11-22] MEDS: Warfarin 2.5 MG Tab PO SCH (13:59)
[2018-11-22] MEDS: Warfarin 5 MG Tab PO SCH (13:59)
[2018-11-22] MEDS: cefTRIAXone 1 GM Vial IVPUSH SCH (15:57)
[2018-11-22] MEDS: Azithromycin 500 MG in Sodium Chloride 0.9% 250 ML IV SCH (15:57)
[2018-11-22] MEDS: Temazepam 15 MG Cap PO PRN (20:21)
[2018-11-23] MEDS: Acetaminophen/HYDROcodone 325-5 MG Tab PO PRN ×2 (05:32→17:38)
[2018-11-23] MEDS: Fluconazole 100 MG Tab PO SCH (07:31)
[2018-11-23] MEDS: Oseltamivir 75 MG Cap PO SCH (07:31)
[2018-11-23] MEDS: Metoprolol Tartrate 25 MG Tab PO SCH ×2 (07:31→19:18)
[2018-11-23] MEDS: Potassium Chloride 10 MEQ Tab.ER PO SCH (07:31)
[2018-11-23] MEDS: Multivitamin Tab PO SCH (07:31)
[2018-11-23] MEDS: Levalbuterol HCl 1.25 MG/3 ML Neb NEB SCH ×4 (07:32→19:18)
[2018-11-23] MEDS: Warfarin 2.5 MG Tab PO SCH (12:14)
[2018-11-23] MEDS: Digoxin 125 MCG Tab PO SCH (12:17)
[2018-11-23] MEDS: Azithromycin 500 MG in Sodium Chloride 0.9% 250 ML IV SCH (15:37)
[2018-11-23] MEDS: cefTRIAXone 1 GM Vial IVPUSH SCH (15:37)
[2018-11-23] MEDS: Temazepam 15 MG Cap PO PRN (19:19)
[2018-11-24] MEDS: Potassium Chloride 10 MEQ Tab.ER PO SCH (07:24)
[2018-11-24] MEDS: Fluconazole 100 MG Tab PO SCH (07:24)
[2018-11-24] MEDS: Multivitamin Tab PO SCH (07:24)
[2018-11-24] MEDS: Metoprolol Tartrate 25 MG Tab PO SCH ×2 (07:25→20:06)
[2018-11-24] MEDS: Levalbuterol HCl 1.25 MG/3 ML Neb NEB SCH ×4 (07:26→20:07)
[2018-11-24] MEDS: Digoxin 125 MCG Tab PO SCH (11:30)
[2018-11-24] MEDS: Warfarin 2.5 MG Tab PO SCH (11:30)
[2018-11-24] MEDS: Acetaminophen/HYDROcodone 325-5 MG Tab PO PRN (11:30)
[2018-11-24] MEDS: Azithromycin 500 MG in Sodium Chloride 0.9% 250 ML IV SCH (15:47)
[2018-11-24] MEDS: cefTRIAXone 1 GM Vial IVPUSH SCH (15:47)
[2018-11-25] MEDS: Acetaminophen/HYDROcodone 325-5 MG Tab PO PRN ×2 (07:34→19:19)
[2018-11-25] MEDS: Metoprolol Tartrate 25 MG Tab PO SCH ×2 (07:34→19:16)
[2018-11-25] MEDS: Multivitamin Tab PO SCH (07:34)
[2018-11-25] MEDS: Fluconazole 100 MG Tab PO SCH (07:34)
[2018-11-25] MEDS: Potassium Chloride 10 MEQ Tab.ER PO SCH (07:34)
[2018-11-25] MEDS: Levalbuterol HCl 1.25 MG/3 ML Neb NEB SCH ×4 (07:36→19:16)
[2018-11-25] MEDS: Warfarin 2.5 MG Tab PO SCH (12:10)
[2018-11-25] MEDS: Digoxin 125 MCG Tab PO SCH (12:11)
[2018-11-25] MEDS: cefTRIAXone 1 GM Vial IVPUSH SCH (15:48)
[2018-11-25] MEDS: Azithromycin 500 MG in Sodium Chloride 0.9% 250 ML IV SCH (15:48)
[2018-11-26] MEDS: Potassium Chloride 10 MEQ Tab.ER PO SCH (07:22)
[2018-11-26] MEDS: Fluconazole 100 MG Tab PO SCH (07:22)
[2018-11-26] MEDS: Multivitamin Tab PO SCH (07:23)
[2018-11-26] MEDS: Metoprolol Tartrate 25 MG Tab PO SCH ×2 (07:24→19:44)
[2018-11-26] MEDS: Levalbuterol HCl 1.25 MG/3 ML Neb NEB SCH ×4 (07:25→19:45)
[2018-11-26] MEDS: Warfarin 2.5 MG Tab PO SCH (11:49)
[2018-11-26] MEDS: Digoxin 125 MCG Tab PO SCH (11:49)
[2018-11-26] MEDS: cefTRIAXone 1 GM Vial IVPUSH SCH (15:36)
[2018-11-26] MEDS: Acetaminophen/HYDROcodone 325-5 MG Tab PO PRN (20:18)
[2018-11-27] MEDS: Multivitamin Tab PO SCH (07:17)
[2018-11-27] MEDS: Potassium Chloride 10 MEQ Tab.ER PO SCH (07:17)
[2018-11-27] MEDS: Levalbuterol HCl 1.25 MG/3 ML Neb NEB SCH ×4 (07:19→19:43)
[2018-11-27] MEDS: Metoprolol Tartrate 25 MG Tab PO SCH ×2 (07:21→19:43)
[2018-11-27] MEDS: Acetaminophen/HYDROcodone 325-5 MG Tab PO PRN ×2 (07:26→19:43)
[2018-11-27] MEDS: Warfarin 2.5 MG Tab PO SCH (11:36)
[2018-11-27] MEDS: Digoxin 125 MCG Tab PO SCH (11:36)
[2018-11-27] MEDS: cefTRIAXone 1 GM Vial IVPUSH SCH (15:28)
[2018-11-28] MEDS: Potassium Chloride 10 MEQ Tab.ER PO SCH (09:14)
[2018-11-28] MEDS: Metoprolol Tartrate 25 MG Tab PO SCH ×2 (09:14→19:17)
[2018-11-28] MEDS: Levalbuterol HCl 1.25 MG/3 ML Neb NEB SCH ×4 (09:15→19:18)
[2018-11-28] MEDS: Multivitamin Tab PO SCH (09:15)
[2018-11-28] MEDS: Warfarin 2.5 MG Tab PO SCH (11:52)
[2018-11-28] MEDS: Digoxin 125 MCG Tab PO SCH (11:52)
[2018-11-28] MEDS: cefTRIAXone 1 GM Vial IVPUSH SCH (16:41)
[2018-11-28] MEDS: Acetaminophen/HYDROcodone 325-5 MG Tab PO PRN (19:18)
[2018-11-29] MEDS: Levalbuterol HCl 1.25 MG/3 ML Neb NEB SCH (07:24)
[2018-11-29] MEDS: Potassium Chloride 10 MEQ Tab.ER PO SCH (07:24)
[2018-11-29] MEDS: Multivitamin Tab PO SCH (07:25)
[2018-11-29] MEDS: Metoprolol Tartrate 25 MG Tab PO SCH (07:26)
[2018-11-29 07:27] VITALS: BP 108/70
[2018-11-29] MEDS: Acetaminophen/HYDROcodone 325-5 MG Tab PO PRN (08:28)
--- NOTE | 2018-11-29 12:05 | PCM.DCSUM1 ---
Discharge Summary - Hospital Course Free Text/Narrative:: Patient presented to ER initially with complaints of increased shortness of breath. Had not felt well for a week prior with increased work of breathing. Cough moist and nonproductive. Had low grade fevers. Chest very tight and rattly. Was in to see Pam Maharaj prior and felt it was viral in nature and started on prednisone but did not see any improvement and felt "weird with it" so stopped it. Also doing nebulizer treatments at home without improvement. Labs done that day that did show positive influenza. Transferred to swing bed for ongoing steroids, Tamiflu and nebs as well as strengthening with PT. Diagnosis: Stroke: No Modified [place]to Scale: No Symptoms at All Modified [place] Scale Score: 0 - Discharge Data Discharge Date: 11/29/18 Discharge Disposition: Home, Self-Care 01 Condition: Good - Patient Summary/Data Complications: none Consults: Consultations 11/19/18 11:11 PT Evaluation and Treatment [CONS] Routine Hospital Course: Patient was transferred to swing bed for ongoing nebs, steroids and oxygen. Weak due to influenza A so continued to work with physical therapy. Over the first weekend in swing bed, patient's heart rate jumped to the 140s-150s, atrial fib with RVR. Had labs that showed WBC 12.2, CRP of 2.4. Did do chest xray that showed new small infiltrate so IV antibiotics were started as well as digoxin was given for the atrial fib as already on metoprolol. She did well with rate control with the digoxin. Oxygen continued. has been working with PT and doing well now. Ambulating in the halls with walker. Maintaining her sats on room air. Lung sounds much improved with good air exchange. Will discharge home. Daughter will be staying with patient while recovering. - Patient Instructions Diet: Usual Diet as Tolerated Activity: As Tolerated - Discharge Plan *PRESCRIPTION DRUG MONITORING PROGRAM REVIEWED*: No *COPY OF PRESCRIPTION DRUG MONITORING REPORT IN PATIENT RIGOBERTO: No Prescriptions/Med Rec: Acetaminophen/HYDROcodone [[place] 325-5 MG] 1 tab PO Q6H PRN #30 tablet PRN Reason: Pain Digoxin 125 mcg PO DAILY #30 tablet Potassium Chloride [Klor-Con 10] 20 meq PO DAILY #30 tab.er Home Medications: Home Meds Metoprolol Tartrate [Lopressor] 50 mg PO BID 02/08/15 [History] Multivitamin [Daily Vitamin] 1 each PO DAILY 03/12/15 [History] Albuterol/Ipratropium [DuoNeb 3.0-0.5 MG/3 ML] 3 ml NEB QIDRT PRN 11/15/18 [ History] Warfarin [Coumadin] 5 mg PO ASDIRECTED 11/15/18 [History] Acetaminophen/HYDROcodone [[place] 325-5 MG] 1 tab PO Q6H PRN #30 tablet 11/29/18 [Rx] Digoxin 125 mcg PO DAILY #30 tablet 11/29/18 [Rx] Potassium Chloride [Klor-Con 10] 20 meq PO DAILY #30 tab.er 11/29/18 [Rx] Referrals: Pam Maharaj PA-C [ED Midlevel Provider] - (Follow up with Pam Maharaj in 10 days. Lab prior to visit) - Discharge Summary/Plan Comment DC Time >30 min.: No - General Info Date of Service: 11/29/18 Admission Dx/Problem (Free Text: Influenza A Functional Status: Reports: Pain Controlled, Tolerating Diet, Ambulating - Review of Systems General: Reports: Weakness, Fatigue. Denies: Fever, Malaise HEENT: Reports: No Symptoms Pulmonary: Denies: Shortness of Breath, Cough Cardiovascular: Denies: Chest Pain, Edema, Lightheadedness Gastrointestinal: Denies: Abdominal Pain, Nausea, Vomiting Genitourinary: Reports: No Symptoms Musculoskeletal: Reports: Back Pain Skin: Reports: No Symptoms Neurological: Reports: No Symptoms Psychiatric: Reports: No Symptoms - Patient Data Vitals - Most Recent: Last Vital Signs Temp 97.6 F 11/29/18 08:00 Pulse 98 11/29/18 08:00 Resp 18 11/29/18 08:00 BP 108/70 11/29/18 08:00 Pulse Ox 97 11/29/18 08:00 Weight - Most Recent: 109 lb 8 oz Med Orders - Current: Current Medications Discontinued Medications Acetaminophen (Tylenol) 650 mg PO Q4H PRN PRN Reason: Pain (Mild 1-3)/fever Hydrocodone Bitart/Acetaminophen ([place] 325-5 Mg) 1 tab PO Q6H PRN PRN Reason: Pain Last Admin: 11/29/18 08:28 Dose: 1 tab Albuterol/Ipratropium (Duoneb 3.0-0.5 Mg/3 Ml) 3 ml NEB ONETIME ONE Stop: 11/20/18 01:13 Last Admin: 11/20/18 01:15 Dose: 3 ml Albuterol/Ipratropium (Duoneb 3.0-0.5 Mg/3 Ml) 3 ml NEB Q4H PRN PRN Reason: Dyspnea Last Admin: 11/20/18 05:35 Dose: 3 ml Ceftriaxone Sodium (Rocephin) 1 gm IVPUSH Q24H [facility] Last Admin: 11/28/18 16:41 Dose: 1 gm Digoxin (Lanoxin) 250 mcg PO Q6H [facility] Stop: 11/21/18 04:46 Last Admin: 11/20/18 22:40 Dose: 250 mcg Digoxin (Lanoxin) 125 mcg PO DAILY@1200 [facility] Last Admin: 11/28/18 11:52 Dose: 125 mcg Digoxin (Lanoxin) 250 mcg PO ONETIME ONE Stop: 11/21/18 04:46 Last Admin: 11/21/18 04:29 Dose: 250 mcg Digoxin (Lanoxin) 125 mcg PO STAT ONE Stop: 11/21/18 19:16 Last Admin: 11/21/18 19:52 Dose: 125 mcg Fluconazole (Diflucan) 100 mg PO DAILY [facility] Last Admin: 11/26/18 07:22 Dose: 100 mg Furosemide (Lasix) 40 mg IVPUSH ONETIME ONE Stop: 11/20/18 02:06 Last Admin: 11/20/18 02:10 Dose: 40 mg Furosemide (Lasix) Confirm Administered Dose 40 mg .ROUTE .STK-MED ONE Stop: 11/20/18 02:11 Last Admin: 11/20/18 02:18 Dose: Not Given Furosemide (Lasix) 40 mg IVPUSH Q24H [facility] Last Admin: 11/21/18 08:20 Dose: 40 mg Lactated Ringer's (Ringers, Lactated) 1,000 mls @ 75 mls/hr IV ASDIRECTED [facility] Stop: 11/19/18 11:30 Azithromycin 500 mg/ Sodium (Chloride) 250 mls @ 250 mls/hr IV Q24H [facility] Last Admin: 11/25/18 15:48 Dose: 250 mls/hr Levalbuterol HCl (Xopenex) 1.25 mg NEB QID [facility] Last Admin: 11/29/18 07:24 Dose: 1.25 mg Levalbuterol HCl (Xopenex) 1.25 mg NEB Q4H PRN PRN Reason: Dyspnea Lorazepam (Ativan) 0.5 mg PO ONETIME ONE Stop: 11/20/18 06:27 Last Admin: 11/20/18 06:39 Dose: 0.5 mg Lorazepam (Ativan) 0.5 mg PO Q6H PRN PRN Reason: Anxiety Methylprednisolone Sodium Succinate (Solu-Medrol) 62.5 mg IVPUSH 0800,1600 [facility] Last Admin: 11/21/18 08:19 Dose: 62.5 mg Metoprolol Tartrate (Lopressor) 50 mg PO BID [facility] Last Admin: 11/29/18 07:26 Dose: 50 mg Multivitamins/Minerals/Vitamin C (Tab-A-Shannon) 1 tab PO DAILY [facility] Last Admin: 11/29/18 07:25 Dose: 1 tab Ondansetron HCl (Zofran Odt) 4 mg PO Q4H PRN PRN Reason: nausea, able to take PO Ondansetron HCl (Zofran) 4 mg IV Q4H PRN PRN Reason: Nausea/Vomiting Oseltamivir Phosphate (Tamiflu) 75 mg PO DAILY [facility] Last Admin: 11/23/18 07:31 Dose: 75 mg Potassium Chloride (Klor-Con 10) 20 meq PO BIDMEALS [facility] Last Admin: 11/23/18 07:31 Dose: 20 meq Potassium Chloride (Klor-Con 10) 20 meq PO DAILY [facility] Last Admin: 11/29/18 07:24 Dose: 20 meq Sodium Chloride (Saline Flush) 10 ml FLUSH ASDIRECTED PRN PRN Reason: Keep Vein Open Sodium Chloride (Saline Flush) 10 ml FLUSH ASDIRECTED PRN PRN Reason: Keep Vein Open Temazepam (Restoril) 15 mg PO BEDTIME PRN PRN Reason: Sleep Last Admin: 11/23/18 19:19 Dose: 15 mg Warfarin Sodium (Coumadin) 5 mg PO WITHLUNCH [facility] Last Admin: 11/22/18 13:59 Dose: Not Given Warfarin Sodium (Coumadin) 2.5 mg PO WITHLUNCH [facility] Last Admin: 11/28/18 11:52 Dose: 2.5 mg - Exam General: Reports: Alert, Oriented HEENT: Reports: Mucous Membr. Moist/[place] Neck: Reports: Supple Lungs: Reports: Clear to Auscultation, Normal Respiratory Effort Cardiovascular: Reports: Irregular Rhythm GI/Abdominal Exam: Normal Bowel Sounds, Soft, Non-Tender Extremities: Normal Inspection, No Pedal Edema Skin: Reports: Warm, Dry Neurological: Reports: No New Focal Deficit
== END 2018-11-29 10:00 | disposition home or self-care (01) | DRG 195 ==
LOC: CC.MS 08:17 → UNDOADMIN 08:18 → CC.MS 08:18
PROVIDERS: ADMIT Family Medicine; ATTEND Family Medicine
DX: J10.01 Influenza due to other identified influenza virus with the same other identified influenza virus pneumonia (principal); Z51.5 Encounter for palliative care; I48.2 Chronic atrial fibrillation; R09.02 Hypoxemia; R79.89 Other specified abnormal findings of blood chemistry; Z79.01 Long term (current) use of anticoagulants; Z79.899 Other long term (current) drug therapy
CPT/HCPCS: 36415; 71046; 80048; 80162; 83880; 84484; 85025; 85379; 85610; 86140; 93005; 94640; 97110-GP; 97112-GP; 97161-GP; A9270-GY; J0456; J0696; J1940; J2930; J7050; J7612-GY; J7620-GY

== ENCOUNTER 2019-07-19 15:44 | Observation (INO) | payer MEDICARE ==
[2019-07-19] MEDS ORDERED: Sodium Chloride 0.9% 10 ML Syringe FLUSH PRN (17:13)
[2019-07-19] MEDS ORDERED: Acetaminophen/HYDROcodone 325-5 MG Tab PO PRN (17:16)
[2019-07-19] MEDS ORDERED: Albuterol/Ipratropium 3.0-0.5 MG/3 ML Neb Soln NEB PRN (17:16)
[2019-07-19] MEDS ORDERED: Warfarin 5 MG Tab PO SCH (17:30)
[2019-07-19 17:39] LABS: CHLORIDE,CL 103 mEq/L (98-106); SODIUM,NA 142 mEq/L (136-145)
[2019-07-19] MEDS: methylPREDNISolone Sodium Succinate 125 MG/2 ML SDV IVPUSH SCH (17:59)
[2019-07-19] MEDS: cefTRIAXone 1 GM Vial IVPUSH SCH (18:01)
[2019-07-19] MEDS: Azithromycin 500 MG in Sodium Chloride 0.9% 250 ML IV SCH (18:03)
[2019-07-19] MEDS ORDERED: Ondansetron 4 MG/2 ML SDV IVPUSH PRN (18:26)
[2019-07-19] MEDS: Metoprolol Tartrate 25 MG Tab PO SCH (19:51)
[2019-07-19] MEDS: Multivitamin Tab PO SCH (19:56)
[2019-07-20] MEDS: methylPREDNISolone Sodium Succinate 125 MG/2 ML SDV IVPUSH SCH ×2 (05:28→17:35)
[2019-07-20] MEDS: Metoprolol Tartrate 25 MG Tab PO SCH ×2 (07:12→19:30)
[2019-07-20] MEDS ORDERED: Pneumococcal Polyvalent-23 Vaccine 0.5 ML SDV IM ONE (08:00)
[2019-07-20] MEDS ORDERED: FLU Vacc QS2019-20(6MOS UP)/PF 60 MCG/0.5 ML Vial IM ONE (09:15)
[2019-07-20] MEDS ORDERED: Warfarin 5 MG Tab PO SCH (12:00)
--- NOTE | 2019-07-20 15:52 | PCM.PN ---
- General Info Date of Service: 07/20/19 Admission Dx/Problem (Free Text): COPD Exacerbation Functional Status: Reports: Pain Controlled, Tolerating Diet, Ambulating - Review of Systems General: Reports: Weakness, Fatigue. Denies: Fever HEENT: Reports: Rhinitis Pulmonary: Reports: Shortness of Breath, Cough, Sputum Cardiovascular: Denies: Chest Pain, Edema, Lightheadedness Gastrointestinal: Denies: Abdominal Pain, Nausea, Vomiting Genitourinary: Reports: No Symptoms Musculoskeletal: Reports: No Symptoms Skin: Reports: No Symptoms Neurological: Reports: No Symptoms - Patient Data Vitals - Most Recent: Last Vital Signs Temp 99.2 F 07/20/19 11:58 Pulse 79 07/20/19 11:58 Resp 16 07/20/19 11:58 BP 134/61 07/20/19 11:58 Pulse Ox 97 07/20/19 11:58 Weight - Most Recent: 113 lb 14.4 oz Lab Results Last 24 Hours: Laboratory Results - last 24 hr 07/19/19 07/19/19 07/19/19 Range/Units 17:13 17:13 17:13 WBC 5.4 (5.0-10.0) 10^3/uL RBC 4.40 (4.00-5.50) 10^6/uL Hgb 13.0 (12.0-16.0) g/dL Hct 39.0 (37.0-47.0) % MCV 88.6 (82.0-94.0) fL MCH 29.5 (27.0-32.0) pg MCHC 33.3 (33.0-38.0) g/dL RDW Coeff of Nadine 14.7 (11.0-15.0) % Plt Count 196 (150-400) 10^3/uL Neut % (Auto) 68.2 (35-85) % Lymph % (Auto) 16.5 (10-55) % [place] % (Auto) 12.3 (0-16) % Eos % (Auto) 2.6 (0-5) % Baso % (Auto) 0.4 (0-3) % Neut # (Auto) 3.67 (1.80-7.00) 10^3/uL Lymph # (Auto) 0.89 L (1.00-4.80) 10^3/uL [place] # (Auto) 0.66 (0.00-0.80) 10^3/uL Eos # (Auto) 0.14 (0.00-0.45) 10^3/uL Baso # (Auto) 0.02 10^3/uL PT 24.8 H (9.7-12.3) SEC INR 2.54 H (0.92-1.18) Sodium 142 (136-145) mEq/L Potassium 4.2 (3.5-5.0) mEq/L Chloride 103 (98-106) mEq/L Carbon Dioxide 30 (21-32) mmol/L BUN 23 H (7-18) mg/dL Creatinine 0.6 (0.6-1.0) mg/dL Est Cr Clr Drug Dosing 55.20 mL/min Estimated GFR (MDRD) > 60 (>=60) mL/min Glucose 83 D (75-99) mg/dL Calcium 8.9 (8.4-10.1) mg/dL C-Reactive Protein 2.2 H (0.2-0.8) mg/dL Med Orders - Current: Current Medications Hydrocodone Bitart/Acetaminophen ([place] 325-5 Mg) 1 tab PO Q6H PRN PRN Reason: Pain Albuterol/Ipratropium (Duoneb 3.0-0.5 Mg/3 Ml) 3 ml NEB QIDRT PRN PRN Reason: Dyspnea Ceftriaxone Sodium (Rocephin) 1 gm IVPUSH Q24H [facility] Last Admin: 07/19/19 18:01 Dose: 1 gm Azithromycin 500 mg/ Sodium (Chloride) 250 mls @ 250 mls/hr IV Q24H [facility] Last Admin: 07/19/19 18:03 Dose: 250 mls/hr Methylprednisolone Sodium Succinate (Solu-Medrol) 62.5 mg IVPUSH Q12H [facility] Last Admin: 07/20/19 05:28 Dose: 62.5 mg Metoprolol Tartrate (Lopressor) 50 mg PO BID [facility] Last Admin: 07/20/19 07:12 Dose: 50 mg Multivitamins/Minerals/Vitamin C (Tab-A-Shannon) 1 tab PO BEDTIME [facility] Last Admin: 07/19/19 19:56 Dose: Not Given Ondansetron HCl (Zofran) 4 mg IVPUSH Q6H PRN PRN Reason: Nausea Last Admin: 07/19/19 18:30 Dose: 4 mg Sodium Chloride (Saline Flush) 10 ml FLUSH ASDIRECTED PRN PRN Reason: Keep Vein Open Warfarin Sodium (Coumadin) 5 mg PO WeSa@1200 [facility] Last Admin: 07/20/19 11:55 Dose: 5 mg Warfarin Sodium (Coumadin) 7.5 mg PO SuMoTuThFr@1200 [facility] Last Admin: 07/19/19 18:33 Dose: Not Given Discontinued Medications Pneumococcal Polyvalent Vaccine (Pneumovax 23) 0.5 ml IM .ONCE ONE Stop: 07/20/19 08:01 Last Admin: 07/20/19 07:12 Dose: 0.5 ml - Exam General: Alert, Oriented HEENT: Mucous Membr. Moist/[place] Neck: Supple Lungs: Decreased Breath Sounds Cardiovascular: Regular Rate, Regular Rhythm GI/Abdominal Exam: Normal Bowel Sounds, Soft, Non-Tender Extremities: Normal Inspection, No Pedal Edema Skin: Warm, Dry Neurological: No New Focal Deficit - Problem List & Annotations (1) COPD exacerbation SNOMED Code(s): 753636826 Code(s): J44.1 - CHRONIC OBSTRUCTIVE PULMONARY DISEASE W (ACUTE) EXACERBATION Status: Acute Priority: High Current Visit: Yes - Problem List Review Problem List Initiated/Reviewed/Updated: Yes - My Orders Last 24 Hours: My Active Orders 07/19/19 18:26 Ondansetron [Zofran] 4 mg IVPUSH Q6H PRN 07/21/19 05:11 BASIC METABOLIC PANEL,BMP [CHEM] AM C-REACTIVE PROTEIN [CHEM] AM CBC WITH AUTO DIFF [HEME] AM - Assessment Assessment:: COPD Exacerbation - Plan Plan:: Patient continues to feel short of breath at times, especially with exertion. Is ambulating to bathroom per self, tolerating fairly well. Oxygen sats are good, maintaining greater than 95% on room air. Lung sounds diminished but fairly clear today. Does still have persistent cough, productive at times. Awaiting collection of sputum. Labs normal on admit. Will continue to use nebs. IV antibiotics empirically. Encourage ambulation. Possible discharge home tomorrow.
[2019-07-20] MEDS: cefTRIAXone 1 GM Vial IVPUSH SCH (17:35)
[2019-07-20] MEDS: Azithromycin 500 MG in Sodium Chloride 0.9% 250 ML IV SCH (17:36)
[2019-07-20] MEDS: Multivitamin Tab PO SCH (19:30)
[2019-07-21] MEDS: methylPREDNISolone Sodium Succinate 125 MG/2 ML SDV IVPUSH SCH (05:38)
[2019-07-21 07:55] LABS: CHLORIDE,CL 104 mEq/L (98-106); SODIUM,NA 141 mEq/L (136-145)
[2019-07-21 08:00] VITALS: BP 161/79; PULSE 76
[2019-07-21] MEDS: Metoprolol Tartrate 25 MG Tab PO SCH (08:16)
--- NOTE | 2019-07-21 08:52 | PCM.DCSUM1 ---
Discharge Summary - Discharge Data Discharge Date: 07/21/19 Discharge Disposition: Home, Self-Care 01 Condition: Good - Referral to Home Health Primary Care Physician: Laureano Ghosh MD - Discharge Diagnosis/Problem(s) (1) COPD exacerbation SNOMED Code(s): 537158930 ICD Code: J44.1 - CHRONIC OBSTRUCTIVE PULMONARY DISEASE W (ACUTE) EXACERBATION Status: Acute Priority: High - Patient Summary/Data Hospital Course: Brook is a pleasant 84 year old female who was admitted to the hospital from the clinic 07/19/2019 with COPD exacerbation. She had cough and worsening shortness of breath prior to admit. Throughout hospital stay, patients breathing improved. She was much less short of breath and cough was nonproductive at time of discharge. Did continue to have mild SOB with exertion , but patient felt she was back to baseline. She was afebrile and maintaining O2 sats > 95% on RA. Labs stable throughout stay. On discharge WBC 10.9 and CRP 0.4. Patient unable to give sputum sample. She was treated empirically with antibiotics and improved. She will be discharged home on remaining course of Levaquin. Is advised to continue her Duonebs every 4 hours as needed. She is advised to follow up with her PCP for recheck in 7 days. She will reduce dose of Coumadin to 5 mg daily. Will have INR checked at follow up. - Patient Instructions Diet: Usual Diet as Tolerated Activity: As Tolerated, Cough & Deep Breathe Notify Provider of: Fever, Increased Pain - Discharge Plan *PRESCRIPTION DRUG MONITORING PROGRAM REVIEWED*: Not Applicable *COPY OF PRESCRIPTION DRUG MONITORING REPORT IN PATIENT RIGOBERTO: Not Applicable Prescriptions/Med Rec: Levofloxacin [Levaquin] 500 mg PO DAILY 7 Days #7 tablet Home Medications: Home Meds Metoprolol Tartrate [Lopressor] 50 mg PO BID 02/08/15 [History] Multivitamin [Daily Vitamin] 1 each PO BEDTIME 03/12/15 [History] Albuterol/Ipratropium [DuoNeb 3.0-0.5 MG/3 ML] 3 ml NEB QIDRT PRN 11/15/18 [ History] Acetaminophen/HYDROcodone [[place] 325-5 MG] 1 tab PO Q6H PRN #30 tablet 11/29/18 [Rx] Levofloxacin [Levaquin] 500 mg PO DAILY 7 Days #7 tablet 07/21/19 [Rx] Warfarin Sodium [Coumadin] 5 mg PO DAILY 07/21/19 [History] Oxygen Therapy Mode: Room Air Patient Handouts: Chronic Obstructive Pulmonary Disease Exacerbation, Easy-to- Read Referrals: Pam Maharaj PA-C [ED Midlevel Provider] - - Discharge Summary/Plan Comment DC Time >30 min.: No - General Info Date of Service: 07/21/19 Admission Dx/Problem (Free Text: COPD Exacerbation Subjective Update: Patient reports she is feeling much improved. Does report some shortness of breath with exertion, but denies any at rest. Does have chronic cough. Feels her cough has improved since admit as well. She has been up walking in halls without difficulty. Afebrile and maintaining O2 sats > 95% on RA. Functional Status: Reports: Pain Controlled, Tolerating Diet, Ambulating, Urinating. Denies: New Symptoms - Review of Systems General: Denies: Fever, Weakness, Fatigue HEENT: Reports: No Symptoms Pulmonary: Reports: Shortness of Breath, Cough. Denies: Pleuritic Chest Pain, Sputum, Hemoptysis, Wheezing Cardiovascular: Reports: Dyspnea on Exertion. Denies: Chest Pain, Palpitations , Edema Gastrointestinal: Reports: No Symptoms. Denies: Constipation, Decreased Appetite, Diarrhea, Nausea, Vomiting Genitourinary: Reports: No Symptoms Skin: Reports: No Symptoms Neurological: Reports: No Symptoms Psychiatric: Reports: No Symptoms - Patient Data Vitals - Most Recent: Last Vital Signs Temp 98.8 F 07/21/19 07:59 Pulse 76 07/21/19 08:16 Resp 18 07/21/19 07:59 BP 161/79 H 07/21/19 08:16 Pulse Ox 95 07/21/19 07:59 Weight - Most Recent: 113 lb 14.4 oz Lab Results - Last 24 hrs: Laboratory Results - last 24 hr 07/21/19 07/21/19 Range/Units 05:11 05:11 WBC 10.9 H (5.0-10.0) 10^3/uL RBC 4.61 (4.00-5.50) 10^6/uL Hgb 13.6 (12.0-16.0) g/dL Hct 40.5 (37.0-47.0) % MCV 87.9 (82.0-94.0) fL MCH 29.5 (27.0-32.0) pg MCHC 33.6 (33.0-38.0) g/dL RDW Coeff of Nadine 14.6 (11.0-15.0) % Plt Count 221 (150-400) 10^3/uL Neut % (Auto) 88.7 H (35-85) % Lymph % (Auto) 6.0 L (10-55) % [place] % (Auto) 5.2 (0-16) % Eos % (Auto) 0.1 (0-5) % Baso % (Auto) 0 (0-3) % Neut # (Auto) 9.66 H (1.80-7.00) 10^3/uL Lymph # (Auto) 0.65 L (1.00-4.80) 10^3/uL [place] # (Auto) 0.57 (0.00-0.80) 10^3/uL Eos # (Auto) 0.01 (0.00-0.45) 10^3/uL Baso # (Auto) 0.00 10^3/uL Sodium 141 (136-145) mEq/L Potassium 3.8 (3.5-5.0) mEq/L Chloride 104 (98-106) mEq/L Carbon Dioxide 29 (21-32) mmol/L BUN 15 (7-18) mg/dL Creatinine 0.5 L (0.6-1.0) mg/dL Est Cr Clr Drug Dosing 66.24 mL/min Estimated GFR (MDRD) > 60 (>=60) mL/min Glucose 150 H D (75-99) mg/dL Calcium 8.8 (8.4-10.1) mg/dL C-Reactive Protein 0.4 (0.2-0.8) mg/dL Med Orders - Current: Current Medications Hydrocodone Bitart/Acetaminophen ([place] 325-5 Mg) 1 tab PO Q6H PRN PRN Reason: Pain Albuterol/Ipratropium (Duoneb 3.0-0.5 Mg/3 Ml) 3 ml NEB QIDRT PRN PRN Reason: Dyspnea Ceftriaxone Sodium (Rocephin) 1 gm IVPUSH Q24H YAW Last Admin: 07/20/19 17:35 Dose: 1 gm Methylprednisolone Sodium Succinate (Solu-Medrol) 62.5 mg IVPUSH Q12H [facility] Last Admin: 07/21/19 05:38 Dose: 62.5 mg Metoprolol Tartrate (Lopressor) 50 mg PO BID [facility] Last Admin: 07/21/19 08:16 Dose: 50 mg Multivitamins/Minerals/Vitamin C (Tab-A-Shannon) 1 tab PO BEDTIME [facility] Last Admin: 07/20/19 19:30 Dose: Not Given Ondansetron HCl (Zofran) 4 mg IVPUSH Q6H PRN PRN Reason: Nausea Last Admin: 07/19/19 18:30 Dose: 4 mg Sodium Chloride (Saline Flush) 10 ml FLUSH ASDIRECTED PRN PRN Reason: Keep Vein Open Warfarin Sodium (Coumadin) 5 mg PO WeSa@1200 [facility] Last Admin: 07/20/19 11:55 Dose: 5 mg Warfarin Sodium (Coumadin) 7.5 mg PO SuMoTuThFr@1200 [facility] Last Admin: 07/19/19 18:33 Dose: Not Given Discontinued Medications Azithromycin 500 mg/ Sodium (Chloride) 250 mls @ 250 mls/hr IV Q24H [facility] Last Admin: 07/20/19 17:36 Dose: 250 mls/hr Pneumococcal Polyvalent Vaccine (Pneumovax 23) 0.5 ml IM .ONCE ONE Stop: 07/20/19 08:01 Last Admin: 07/20/19 07:12 Dose: 0.5 ml - Exam Quality Assessment: Reports: DVT Prophylaxis. Denies: Supplemental Oxygen General: Reports: Alert, Oriented, No Acute Distress Neck: Reports: Supple Lungs: Reports: Decreased Breath Sounds, Wheezing Cardiovascular: Reports: Regular Rate, Regular Rhythm GI/Abdominal Exam: Normal Bowel Sounds, Soft, Non-Tender, No Distention Extremities: Normal Inspection, Normal Range of Motion, Non-Tender, No Pedal Edema, Normal Capillary Refill Neurological: Reports: No New Focal Deficit Psy/Mental Status: Reports: Alert, Normal Affect, Normal Mood
== END 2019-07-21 10:01 | disposition home or self-care (01) ==
LOC: UNDOADMOB 15:44 → CC.MS 15:44
PROVIDERS: ADMIT Family Medicine; ATTEND Family Medicine
DX: J44.1 Chronic obstructive pulmonary disease with (acute) exacerbation (principal); I25.10 Atherosclerotic heart disease of native coronary artery without angina pectoris; I48.91 Unspecified atrial fibrillation; F41.9 Anxiety disorder, unspecified; F17.210 Nicotine dependence, cigarettes, uncomplicated; Z88.5 Allergy status to narcotic agent; Z79.01 Long term (current) use of anticoagulants; Z79.899 Other long term (current) drug therapy
CPT/HCPCS: 36415; 71046; 80048; 85025; 85610; 86140; 90686; 90732; 96365; 96366; 96375; 96376; 99217; 99219; 99225; A9270-GY; G0009; G0378; J0456; J0696; J2405; J2930; J7050

== ENCOUNTER 2020-09-04 12:58 | Observation (INO) | payer MEDICARE ==
[2020-09-04] MEDS ORDERED: Sodium Chloride 0.9% 10 ML Syringe FLUSH PRN (13:25)
[2020-09-04] MEDS ORDERED: Ondansetron 4 MG/2 ML SDV IV PRN (13:25)
[2020-09-04] MEDS ORDERED: Acetaminophen 325 MG Tab PO PRN (13:25)
[2020-09-04] MEDS ORDERED: Ondansetron 4 MG Tab.DIS PO PRN (13:25)
[2020-09-04 14:06] LABS: CHLORIDE,CL 105 mEq/L (98-106); SODIUM,NA 141 mEq/L (136-145)
[2020-09-04] MEDS: Sodium Chloride 0.9% 1,000 ML IV SCH (15:03)
[2020-09-04] MEDS ORDERED: Acetaminophen/HYDROcodone 325-5 MG Tab PO PRN (16:24)
[2020-09-04] MEDS ORDERED: Albuterol/Ipratropium 3.0-0.5 MG/3 ML Neb Soln NEB PRN (16:24)
[2020-09-04] MEDS: Metoprolol Tartrate 25 MG Tab PO SCH (19:28)
[2020-09-04] MEDS: Multivitamin Tab PO SCH (19:28)
[2020-09-05] MEDS: Sodium Chloride 0.9% 1,000 ML IV SCH (04:23)
[2020-09-05] MEDS: Metoprolol Tartrate 25 MG Tab PO SCH ×2 (07:33→20:14)
[2020-09-05] MEDS: Meclizine 12.5 MG Tab PO PRN (07:49)
[2020-09-05 08:09] LABS: CHLORIDE,CL 109 mEq/L (98-106); SODIUM,NA 143 mEq/L (136-145)
--- NOTE | 2020-09-05 09:06 | PCM.PN ---
- General Info Date of Service: 09/05/20 Admission Dx/Problem (Free Text): Brook is an 85 yo female who was admitted to the hospital yesterday with concerns of vertigo. Patient rolled over in bed around 0300 yesterday morning and had severe vertigo, as if the room was spinning. She was unable to ambulate and needed assistance secondary to the vertigo. Subjective Update: Patient states she continues to have dizziness today. Underwent CT scan of the brain yesterday, no acute findings. Physical therapy has been in to evaluate patient and will have canalith repositioning today. Denies any new onset of symptoms. - Review of Systems General: Reports: No Symptoms HEENT: Reports: Other (vertigo). Denies: Headaches Pulmonary: Reports: No Symptoms, Cough (chronic) Cardiovascular: Reports: No Symptoms Gastrointestinal: Reports: No Symptoms Genitourinary: Reports: No Symptoms Musculoskeletal: Reports: No Symptoms Neurological: Reports: Dizziness Psychiatric: Reports: No Symptoms - Patient Data Vitals - Most Recent: Last Vital Signs Temp 97.6 F 09/05/20 08:00 Pulse 79 09/05/20 08:00 Resp 18 09/05/20 08:00 BP 135/67 09/05/20 08:00 Pulse Ox 95 09/05/20 08:00 Weight - Most Recent: 113 lb 11.2 oz I&O - Last 24 Hours: Intake & Output 09/04/20 09/05/20 09/05/20 22:59 06:59 14:59 Intake Total 1000 Balance 1000 Lab Results Last 24 Hours: Laboratory Results - last 24 hr 09/04/20 09/04/20 09/04/20 Range/Units 13:02 13:25 13:25 WBC 5.8 (5.0-10.0) 10^3/uL RBC 4.88 (4.00-5.50) 10^6/uL Hgb 13.2 (12.0-16.0) g/dL Hct 41.0 (37.0-47.0) % MCV 84.0 (82.0-94.0) fL MCH 27.0 (27.0-32.0) pg MCHC 32.2 L (33.0-38.0) g/dL RDW Coeff of Nadine 16.5 H (11.0-15.0) % Plt Count 206 (150-400) 10^3/uL Neut % (Auto) 78.0 (35-85) % Lymph % (Auto) 11.6 (10-55) % [place] % (Auto) 8.8 (0-16) % Eos % (Auto) 1.4 (0-5) % Baso % (Auto) 0.2 (0-3) % Neut # (Auto) 4.53 (1.80-7.00) 10^3/uL Lymph # (Auto) 0.67 L (1.00-4.80) 10^3/uL [place] # (Auto) 0.51 (0.00-0.80) 10^3/uL Eos # (Auto) 0.08 (0.00-0.45) 10^3/uL Baso # (Auto) 0.01 10^3/uL PT (9.7-12.3) SEC INR (0.92-1.18) Sodium 141 (136-145) mEq/L Potassium 4.3 (3.5-5.0) mEq/L Chloride 105 (98-106) mEq/L Carbon Dioxide 30 (21-32) mmol/L BUN 18 (7-18) mg/dL Creatinine 0.5 L (0.6-1.0) mg/dL Est Cr Clr Drug Dosing TNP Estimated GFR (MDRD) > 60 (>=60) mL/min Glucose 118 H D (75-99) mg/dL Calcium 8.8 (8.4-10.1) mg/dL Total Bilirubin 0.3 (0.0-1.0) mg/dL AST 14 L (15-37) U/L ALT 26 (12-78) U/L Alkaline Phosphatase 60 (46-116) U/L Troponin I < 0.017 (0.00-0.06) ng/mL C-Reactive Protein (0.2-0.8) mg/dL Total Protein 7.0 (6.4-8.2) g/dL Albumin 3.4 (3.4-5.0) g/dL Urine Color (YELLOW) Urine Appearance (CLEAR) Urine pH (4.5-8.0) Ur Specific [place] (1.003-1.020) Urine Protein (NEGATIVE) mg/dL Urine Glucose (UA) (NEGATIVE) mg/dL Urine Ketones (NEGATIVE) mg/dL Urine Occult Blood (NEGATIVE) Urine Nitrite (NEGATIVE) Urine Bilirubin (NEGATIVE) Urine Urobilinogen (0.2-1.0) EU/dL Ur Leukocyte Esterase (NEGATIVE) Urine RBC (0-5) /HPF Urine WBC (0-5) /HPF Ur Epithelial Cells (NOT SEEN) /HPF Urine Bacteria (NOT SEEN) /HPF SARS CoV-2 RNA Rapid YNES Negative (NEGATIVE) 09/04/20 09/04/20 09/04/20 Range/Units 13:25 16:48 16:48 WBC (5.0-10.0) 10^3/uL RBC (4.00-5.50) 10^6/uL Hgb (12.0-16.0) g/dL Hct (37.0-47.0) % MCV (82.0-94.0) fL MCH (27.0-32.0) pg MCHC (33.0-38.0) g/dL RDW Coeff of Nadine (11.0-15.0) % Plt Count (150-400) 10^3/uL Neut % (Auto) (35-85) % Lymph % (Auto) (10-55) % [place] % (Auto) (0-16) % Eos % (Auto) (0-5) % Baso % (Auto) (0-3) % Neut # (Auto) (1.80-7.00) 10^3/uL Lymph # (Auto) (1.00-4.80) 10^3/uL [place] # (Auto) (0.00-0.80) 10^3/uL Eos # (Auto) (0.00-0.45) 10^3/uL Baso # (Auto) 10^3/uL PT 23.5 H 24.1 H (9.7-12.3) SEC INR 2.35 H 2.41 H (0.92-1.18) Sodium (136-145) mEq/L Potassium (3.5-5.0) mEq/L Chloride (98-106) mEq/L Carbon Dioxide (21-32) mmol/L BUN (7-18) mg/dL Creatinine (0.6-1.0) mg/dL Est Cr Clr Drug Dosing Estimated GFR (MDRD) (>=60) mL/min Glucose (75-99) mg/dL Calcium (8.4-10.1) mg/dL Total Bilirubin (0.0-1.0) mg/dL AST (15-37) U/L ALT (12-78) U/L Alkaline Phosphatase (46-116) U/L Troponin I (0.00-0.06) ng/mL C-Reactive Protein (0.2-0.8) mg/dL Total Protein (6.4-8.2) g/dL Albumin (3.4-5.0) g/dL Urine Color Yellow (YELLOW) Urine Appearance Clear (CLEAR) Urine pH 7.0 (4.5-8.0) Ur Specific [place] 1.025 H (1.003-1.020) Urine Protein Negative (NEGATIVE) mg/dL Urine Glucose (UA) Negative (NEGATIVE) mg/dL Urine Ketones Negative (NEGATIVE) mg/dL Urine Occult Blood Trace-intact H (NEGATIVE) Urine Nitrite Negative (NEGATIVE) Urine Bilirubin Negative (NEGATIVE) Urine Urobilinogen 0.2 (0.2-1.0) EU/dL Ur Leukocyte Esterase Trace H (NEGATIVE) Urine RBC 0-5 (0-5) /HPF Urine WBC 0-5 (0-5) /HPF Ur Epithelial Cells Occasional H (NOT SEEN) /HPF Urine Bacteria Occasional H (NOT SEEN) /HPF SARS CoV-2 RNA Rapid YNES (NEGATIVE) 09/05/20 09/05/20 Range/Units 07:04 07:07 WBC 4.0 L (5.0-10.0) 10^3/uL RBC 4.55 (4.00-5.50) 10^6/uL Hgb 12.3 (12.0-16.0) g/dL Hct 38.5 (37.0-47.0) % MCV 84.6 (82.0-94.0) fL MCH 27.0 (27.0-32.0) pg MCHC 31.9 L (33.0-38.0) g/dL RDW Coeff of Nadine 16.2 H (11.0-15.0) % Plt Count 177 (150-400) 10^3/uL Neut % (Auto) 67.8 (35-85) % Lymph % (Auto) 16.7 (10-55) % [place] % (Auto) 11.9 (0-16) % Eos % (Auto) 3.3 (0-5) % Baso % (Auto) 0.3 (0-3) % Neut # (Auto) 2.69 (1.80-7.00) 10^3/uL Lymph # (Auto) 0.66 L (1.00-4.80) 10^3/uL [place] # (Auto) 0.47 (0.00-0.80) 10^3/uL Eos # (Auto) 0.13 (0.00-0.45) 10^3/uL Baso # (Auto) 0.01 10^3/uL PT (9.7-12.3) SEC INR (0.92-1.18) Sodium 143 (136-145) mEq/L Potassium 4.0 (3.5-5.0) mEq/L Chloride 109 H (98-106) mEq/L Carbon Dioxide 28 (21-32) mmol/L BUN 12 (7-18) mg/dL Creatinine 0.5 L (0.6-1.0) mg/dL Est Cr Clr Drug Dosing 65.06 Estimated GFR (MDRD) > 60 (>=60) mL/min Glucose 94 (75-99) mg/dL Calcium 8.2 L (8.4-10.1) mg/dL Total Bilirubin (0.0-1.0) mg/dL AST (15-37) U/L ALT (12-78) U/L Alkaline Phosphatase (46-116) U/L Troponin I (0.00-0.06) ng/mL C-Reactive Protein < 0.2 L (0.2-0.8) mg/dL Total Protein (6.4-8.2) g/dL Albumin (3.4-5.0) g/dL Urine Color (YELLOW) Urine Appearance (CLEAR) Urine pH (4.5-8.0) Ur Specific [place] (1.003-1.020) Urine Protein (NEGATIVE) mg/dL Urine Glucose (UA) (NEGATIVE) mg/dL Urine Ketones (NEGATIVE) mg/dL Urine Occult Blood (NEGATIVE) Urine Nitrite (NEGATIVE) Urine Bilirubin (NEGATIVE) Urine Urobilinogen (0.2-1.0) EU/dL Ur Leukocyte Esterase (NEGATIVE) Urine RBC (0-5) /HPF Urine WBC (0-5) /HPF Ur Epithelial Cells (NOT SEEN) /HPF Urine Bacteria (NOT SEEN) /HPF SARS CoV-2 RNA Rapid YNES (NEGATIVE) Med Orders - Current: Current Medications Acetaminophen (Tylenol) 650 mg PO Q4H PRN PRN Reason: Pain (Mild 1-3)/fever Hydrocodone Bitart/Acetaminophen ([place] 325-5 Mg) 1 tab PO Q6H PRN PRN Reason: Pain Albuterol/Ipratropium (Duoneb 3.0-0.5 Mg/3 Ml) 3 ml NEB QIDRT PRN PRN Reason: Dyspnea Sodium Chloride (Normal Saline) 1,000 mls @ 75 mls/hr IV ASDIRECTED [facility] Last Admin: 09/05/20 04:23 Dose: 75 mls/hr Documented by: Meclizine HCl (Antivert) 12.5 mg PO TID PRN PRN Reason: Dizziness Last Admin: 09/05/20 07:49 Dose: 12.5 mg Documented by: Metoprolol Tartrate (Lopressor) 50 mg PO BID [facility] Last Admin: 09/05/20 07:33 Dose: 50 mg Documented by: Multivitamins/Minerals/Vitamin C (Tab-A-Shannon) 1 tab PO BEDTIME [facility] Last Admin: 09/04/20 19:28 Dose: 1 tab Documented by: Ondansetron HCl (Zofran) 4 mg IV Q4H PRN PRN Reason: Nausea/Vomiting Ondansetron HCl (Zofran Odt) 4 mg PO Q4H PRN PRN Reason: nausea, able to take PO Sodium Chloride (Saline Flush) 10 ml FLUSH ASDIRECTED PRN PRN Reason: Keep Vein Open Warfarin Sodium (Coumadin) 5 mg PO SuWeFr@1200 Y[facility] Warfarin Sodium (Coumadin) 7.5 mg PO MoTuThSa@1200 [facility] - Exam General: Alert, Oriented, Cooperative, No Acute Distress, Other (upon sitting patient up, patient had severe dizziness) Neck: Supple Lungs: Decreased Breath Sounds, Crackles, Rhonchi Cardiovascular: Regular Rate, Regular Rhythm, No Murmurs GI/Abdominal Exam: Normal Bowel Sounds, Soft, Non-Tender, No Distention, No Abnormal Bruit Extremities: Normal Inspection, No Pedal Edema Skin: Warm, Dry, Intact Neurological: No New Focal Deficit Psy/Mental Status: Alert, Normal Affect, Normal Mood Sepsis Event Note - Evaluation Sepsis Screening Result: No Definite Risk - Focused Exam Vital Signs: Vital Signs Temp Pulse Pulse Resp BP BP BP 09/05/20 08:00 97.6 F 79 18 135/67 09/05/20 07:33 79 135/67 09/05/20 04:00 98.4 F 71 16 134/71 09/04/20 23:46 98.0 F 68 16 142/74 H Pulse Ox 09/05/20 08:00 95 09/05/20 07:33 09/05/20 04:00 95 09/04/20 23:46 95 - Problem List & Annotations (1) Positional vertigo SNOMED Code(s): 651010091 Code(s): LRN3830 - Status: Acute Current Visit: Yes (2) Adventitious breath sounds SNOMED Code(s): 92632876 Code(s): R06.89 - OTHER ABNORMALITIES OF BREATHING Status: Acute Current Visit: Yes - Problem List Review Problem List Initiated/Reviewed/Updated: Yes - My Orders Last 24 Hours: My Active Orders 09/05/20 08:58 Chest 2V [CR] Routine 09/06/20 05:11 BASIC METABOLIC PANEL,BMP [CHEM] AM C-REACTIVE PROTEIN [CHEM] AM CBC WITH AUTO DIFF [HEME] AM PRO B-TYPE NATRIUR PEPT,BNPPRO [CHEM] Routine - Plan Plan:: Will have Physical therapy reevaluate today for canalith repositioning. Patient is a chronic smoker and does have course lung sounds, will get chest x-ray today. Labs are stable, will repeat in am. EKG reviewed from yesterday and unremarkable. Patient in good spirits. Will d/c IV fluids today.
[2020-09-05] MEDS ORDERED: Warfarin 5 MG Tab PO SCH (12:00)
[2020-09-05] MEDS: Multivitamin Tab PO SCH (20:14)
[2020-09-05] MEDS ORDERED: Temazepam 15 MG Cap PO PRN (20:20)
[2020-09-06 07:35] LABS: CHLORIDE,CL 106 mEq/L (98-106); SODIUM,NA 142 mEq/L (136-145)
[2020-09-06] MEDS: Metoprolol Tartrate 25 MG Tab PO SCH (07:36)
[2020-09-06] MEDS: Meclizine 12.5 MG Tab PO PRN (07:41)
[2020-09-06 11:54] VITALS: BP 153/65; PULSE 76
[2020-09-06] MEDS ORDERED: Warfarin 5 MG Tab PO SCH (12:00)
--- NOTE | 2020-09-06 13:24 | PCM.DCSUM1 ---
Discharge Summary - Hospital Course HPI Initial Comments: Brook is an 85 yo female who was admitted to the hospital on the 04 of September with concerns of vertigo. Patient rolled over in bed around 0300 that morning morning and had severe vertigo, as if the room was spinning. She was unable to ambulate and needed assistance secondary to the vertigo. Diagnosis: Stroke: No - Discharge Data Discharge Date: 09/06/20 Discharge Disposition: Home, Self-Care 01 Condition: Good - Referral to Home Health Primary Care Physician: INOCENCIO Small - Discharge Diagnosis/Problem(s) (1) Vertigo SNOMED Code(s): 668920366 ICD Code: R42 - DIZZINESS AND GIDDINESS Status: Acute Current Visit: Yes - Patient Summary/Data Consults: Consultations 09/04/20 13:25 PT Evaluation and Treatment [CONS] Routine PT Evaluation and Treatment [CONS] Routine - Patient Instructions Diet: Usual Diet as Tolerated Activity: As Tolerated - Discharge Plan *PRESCRIPTION DRUG MONITORING PROGRAM REVIEWED*: Not Applicable *COPY OF PRESCRIPTION DRUG MONITORING REPORT IN PATIENT RIGOBERTO: Not Applicable Prescriptions/Med Rec: Meclizine [Antivert] 12.5 mg PO TID PRN #30 tablet PRN Reason: Dizziness Tobacco Cessation Medication: Prescription Refused Home Medications: Home Meds Metoprolol Tartrate [Lopressor] 50 mg PO BID 02/08/15 [History] Multivitamin [Daily Vitamin] 1 each PO BEDTIME 03/12/15 [History] Albuterol/Ipratropium [DuoNeb 3.0-0.5 MG/3 ML] 3 ml NEB QIDRT PRN 11/15/18 [History] Acetaminophen/HYDROcodone [[place] 325-5 MG] 1 tab PO Q6H PRN #30 tablet 11/29/18 [Rx] Warfarin Sodium [Coumadin] 5 mg PO SUWEFR 07/21/19 [History] Warfarin Sodium 7.5 mg PO MOTUTHSA 09/04/20 [History] Meclizine [Antivert] 12.5 mg PO TID PRN #30 tablet 09/06/20 [Rx] Oxygen Therapy Mode: Room Air Patient Handouts: Vertigo, [id number], Dizziness, [id number] Referrals: Pam Maharaj PA-C [ED Midlevel Provider] - 09/12/20 10:00 am (Appointment scheduled with Pam Maharaj) - Discharge Summary/Plan Comment DC Time >30 min.: Yes Discharge Summary/Plan Comment: Patient is asymptomatic today. Again, CT of the head was negative on admit. Echocardiogram and carotid duplex were completed during stay, no final results at this time. Patient has been ambulatory without difficulty today. Will discharge home at this time. Antivert sent to local pharmacy. Patient verbalized understanding and in agreement with discharge at this time. Will follow up with primary, appointment scheduled. - General Info Date of Service: 09/06/20 Subjective Update: Patient had continuous vertigo up until today. Underwent CT scan of the brain on admit with no acute findings. Physical therapy did evaluate patient and attempted canalith repositioning. PT was concerned of orthostasis as well and orthostatic blood pressures were obtained and unremarkable. Patient did see improvement with Antivert and today feels back to baseline. No further vertigo at this time and patient has been able to ambulate without difficulty. Functional Status: Reports: Pain Controlled, Tolerating Diet, Ambulating, Urinating. Denies: New Symptoms - Review of Systems General: Reports: No Symptoms HEENT: Reports: No Symptoms Pulmonary: Reports: No Symptoms Cardiovascular: Reports: No Symptoms Gastrointestinal: Reports: No Symptoms Genitourinary: Reports: No Symptoms Musculoskeletal: Reports: No Symptoms Skin: Reports: No Symptoms Neurological: Reports: No Symptoms Psychiatric: Reports: No Symptoms - Patient Data Vitals - Most Recent: Last Vital Signs Temp 97.2 F 09/06/20 11:53 Pulse 76 09/06/20 11:53 Resp 18 09/06/20 11:53 BP 153/65 H 09/06/20 11:53 Pulse Ox 96 09/06/20 11:53 Orthostatic Blood Pressure [ 114/56 Standing] Orthostatic Blood Pressure [ 124/65 Sitting] Orthostatic Blood Pressure [ 134/64 Supine] Weight - Most Recent: 113 lb 11.2 oz Lab Results - Last 24 hrs: Laboratory Results - last 24 hr 09/06/20 09/06/20 Range/Units 06:55 06:55 WBC 5.4 (5.0-10.0) 10^3/uL RBC 4.73 (4.00-5.50) 10^6/uL Hgb 12.7 (12.0-16.0) g/dL Hct 39.8 (37.0-47.0) % MCV 84.1 (82.0-94.0) fL MCH 26.8 L (27.0-32.0) pg MCHC 31.9 L (33.0-38.0) g/dL RDW Coeff of Nadine 16.2 H (11.0-15.0) % Plt Count 185 (150-400) 10^3/uL Neut % (Auto) 71.8 (35-85) % Lymph % (Auto) 15.8 (10-55) % [place] % (Auto) 9.8 (0-16) % Eos % (Auto) 2.4 (0-5) % Baso % (Auto) 0.2 (0-3) % Neut # (Auto) 3.90 (1.80-7.00) 10^3/uL Lymph # (Auto) 0.86 L (1.00-4.80) 10^3/uL [place] # (Auto) 0.53 (0.00-0.80) 10^3/uL Eos # (Auto) 0.13 (0.00-0.45) 10^3/uL Baso # (Auto) 0.01 10^3/uL Sodium 142 (136-145) mEq/L Potassium 4.6 (3.5-5.0) mEq/L Chloride 106 (98-106) mEq/L Carbon Dioxide 29 (21-32) mmol/L BUN 12 (7-18) mg/dL Creatinine 0.5 L (0.6-1.0) mg/dL Est Cr Clr Drug Dosing 65.06 mL/min Estimated GFR (MDRD) > 60 (>=60) mL/min Glucose 92 (75-99) mg/dL Calcium 8.3 L (8.4-10.1) mg/dL C-Reactive Protein < 0.2 L (0.2-0.8) mg/dL NT-Pro-B Natriuret Pep 757 (0-1000) pg/mL Med Orders - Current: Current Medications Acetaminophen (Tylenol) 650 mg PO Q4H PRN PRN Reason: Pain (Mild 1-3)/fever Hydrocodone Bitart/Acetaminophen ([place] 325-5 Mg) 1 tab PO Q6H PRN PRN Reason: Pain Albuterol/Ipratropium (Duoneb 3.0-0.5 Mg/3 Ml) 3 ml NEB QIDRT PRN PRN Reason: Dyspnea Meclizine HCl (Antivert) 12.5 mg PO TID PRN PRN Reason: Dizziness Last Admin: 09/06/20 07:41 Dose: 12.5 mg Documented by: Metoprolol Tartrate (Lopressor) 50 mg PO BID [facility] Last Admin: 09/06/20 07:36 Dose: 50 mg Documented by: Multivitamins/Minerals/Vitamin C (Tab-A-Shannon) 1 tab PO BEDTIME [facility] Last Admin: 09/05/20 20:14 Dose: 1 tab Documented by: Ondansetron HCl (Zofran) 4 mg IV Q4H PRN PRN Reason: Nausea/Vomiting Ondansetron HCl (Zofran Odt) 4 mg PO Q4H PRN PRN Reason: nausea, able to take PO Sodium Chloride (Saline Flush) 10 ml FLUSH ASDIRECTED PRN PRN Reason: Keep Vein Open Temazepam (Restoril) 15 mg PO BEDTIME PRN PRN Reason: Insomnia Warfarin Sodium (Coumadin) 5 mg PO [id number]@1200 [facility] Last Admin: 09/05/20 11:34 Dose: 5 mg Documented by: Warfarin Sodium (Coumadin) 7.5 mg PO [id number]@1200 [facility] Last Admin: 09/06/20 12:03 Dose: 7.5 mg Documented by: Discontinued Medications Sodium Chloride (Normal Saline) 1,000 mls @ 75 mls/hr IV ASDIRECTED [facility] Last Admin: 09/05/20 04:23 Dose: 75 mls/hr Documented by: - Exam Quality Assessment: Denies: Supplemental Oxygen General: Reports: Alert, Oriented, Cooperative, No Acute Distress Neck: Reports: Supple. Denies: Carotid Bruit Lungs: Reports: Clear to Auscultation, Normal Respiratory Effort Cardiovascular: Reports: Regular Rate, Regular Rhythm, No Murmurs GI/Abdominal Exam: Normal Bowel Sounds, Soft, Non-Tender, No Distention Extremities: Normal Inspection, No Pedal Edema Skin: Reports: Warm, Dry, Intact Neurological: Reports: No New Focal Deficit Psy/Mental Status: Reports: Alert, Normal Affect, Normal Mood
== END 2020-09-06 14:10 | disposition home or self-care (01) ==
LOC: CC.FCMC 12:58 → CC.MS 13:21 → UNDOADMOB 13:21 → CC.MS 13:25
PROVIDERS: ADMIT Physician Assistant Medical; ATTEND Family Medicine
DX: R42 Dizziness and giddiness (principal); I48.91 Unspecified atrial fibrillation; M81.0 Age-related osteoporosis without current pathological fracture; F41.9 Anxiety disorder, unspecified; I25.10 Atherosclerotic heart disease of native coronary artery without angina pectoris; D68.59 Other primary thrombophilia; Z20.828 Contact with and (suspected) exposure to other viral communicable diseases; Z85.118 Personal history of other malignant neoplasm of bronchus and lung; Z88.8 Allergy status to other drugs, medicaments and biological substances; Z88.5 Allergy status to narcotic agent; Z88.1 Allergy status to other antibiotic agents; Z79.899 Other long term (current) drug therapy; Z90.49 Acquired absence of other specified parts of digestive tract; Z98.890 Other specified postprocedural states; Z79.01 Long term (current) use of anticoagulants
CPT/HCPCS: 36415; 70450; 71046; 80048; 80053; 81001; 83880; 84484; 85025; 85610; 86140; 93306; 93880; 97161; 97530; A9270; G0378; J7030; U0002

== ENCOUNTER 2020-12-15 20:50 | Emergency (ER) | payer MEDICARE ==
[2020-12-15] MEDS ORDERED: Albuterol/Ipratropium 3.0-0.5 MG/3 ML Neb Soln NEB ONE (21:07)
--- NOTE | 2020-12-15 21:09 | EDM.PDOC ---
ED HPI GENERAL MEDICAL PROBLEM - General Chief Complaint: General Stated Complaint: CP Time Seen by Provider: 12/15/20 20:53 Source of Information: Reports: Patient History Limitations: Reports: No Limitations - History of Present Illness INITIAL COMMENTS - FREE TEXT/NARRATIVE: This patient is an 85 year old female that presents to the ER. Patient reports that 2 days ago started with right lateral chest pain, wrapping around to the right side near scapula central/upper right back. Patient reports that the pain was mild, but has become worse the last 2 days. Patient reports that movement does make the pain worse. Patient reports that she has been painting her cabinets the last 2 days. She reports pain started after painting cabinets. She reports she takes it easy with painting. Patient reports that at home she did take a Hydrocodone at about 6:30pm. She reports that it did help, but not take the pain away like it should. Patient reports that is mildly short of breath. Patient reports she is a smoker. Patient reports history of cardiac stent placed over 10 years ago. Onset Date: 12/13/20 Duration: Day(s): (2) Location: Reports: Chest (right lateral), Back Quality: Reports: Ache Severity: Mild Improves with: Reports: Rest Worsens with: Reports: Movement Associated Symptoms: Reports: Chest Pain (2 days ago, but reports the right lateral chest pain is resolved, it is now in her back.), Shortness of Breath (mild, but chronic per patient). Denies: Confusion, Cough, cough w sputum, Diaphoresis, Fever/Chills, Headaches, Loss of Appetite, Malaise, Nausea/Vomitin g, Rash, Seizure, Syncope, Weakness Treatments GENETIC COUNSELOR: Reports: Other (see below) Other Treatments GENETIC COUNSELOR: Hydrocodone Shoulder Pain Score (Numeric/FACES): 8 - Related Data Allergies Allergy/AdvReac Type Severity Reaction Status Date / Time azithromycin Allergy Nausea and Verified 12/15/20 20:58 Vomiting codeine Allergy Cannot Verified 12/15/20 20:58 Remember levofloxacin [From Levaquin] Allergy Vomiting Verified 12/15/20 20:58 oxycodone Allergy Dizziness Verified 12/15/20 20:58 prednisone AdvReac Intermediate Other Verified 12/15/20 20:58 Home Meds: Home Meds Metoprolol Tartrate [Lopressor] 50 mg PO BID 02/08/15 [History] Multivitamin [Daily Vitamin] 1 each PO BEDTIME 03/12/15 [History] Albuterol/Ipratropium [DuoNeb 3.0-0.5 MG/3 ML] 3 ml NEB QIDRT PRN 11/15/18 [History] Acetaminophen/HYDROcodone [[place] 325-5 MG] 1 tab PO Q6H PRN #30 tablet 11/29/18 [Rx] Warfarin Sodium [Coumadin] 7.5 mg PO ASDIRECTED 07/21/19 [History] Warfarin Sodium 7.5 mg PO MOTUTHSA 09/04/20 [History] Meclizine [Antivert] 12.5 mg PO TID PRN #30 tablet 09/06/20 [Rx] Past Medical History Cardiovascular History: Reports: Afib, Blood Clots/VTE/DVT, Hypertension, SOB on Exertion, Stents Respiratory History: Reports: COPD, Pneumonia, Recurrent, SOB Genitourinary History: Reports: Renal Calculus Musculoskeletal History: Reports: Osteoarthritis Psychiatric History: Reports: Anxiety Hematologic History: Reports: Anemia Oncologic (Cancer) History: Reports: Lung - Past Surgical History HEENT Surgical History: Reports: Cataract Surgery Cardiovascular Surgical History: Reports: Coronary Artery Stent, Varicose Respiratory Surgical History: Reports: Lung Resection, Other (See Below) Other Respiratory Surgeries/Procedures: 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 GI Surgical History: Reports: Appendectomy Musculoskeletal Surgical History: Reports: Hip Replacement, Shoulder Surgery, Other (See Below) Other Musculoskeletal Surgeries/Procedures:: hammertoes and bunions both feet Oncologic Surgical History: Reports: Other (See Below) Other Oncologic Surgeries/Procedures: lower third of right lung removed Social & Family History - Family History Cardiac: Reports: Hypertension - Caffeine Use Caffeine Use: Reports: Coffee - Living Situation & Occupation Living situation: Reports: with Family ED ROS GENERAL - Review of Systems Review Of Systems: See Below Constitutional: Reports: No Symptoms HEENT: Reports: No Symptoms Respiratory: Reports: No Symptoms Cardiovascular: Reports: Chest Pain (Right lateral, but resolved). Denies: Dyspnea on Exertion, Edema, Lightheadedness, Palpitations, Syncope Endocrine: Reports: No Symptoms GI/Abdominal: Reports: No Symptoms. Denies: Abdominal Pain, Nausea, Vomiting : Reports: No Symptoms. Denies: Dysuria, Flank Pain, Frequency, Incontinence, Pain, Urgency Musculoskeletal: Reports: Back Pain (right lateral mid/upper, scapular pain.). Denies: Neck Pain, Shoulder Pain Skin: Reports: No Symptoms Neurological: Reports: No Symptoms Psychiatric: Reports: No Symptoms Hematologic/Lymphatic: Reports: No Symptoms Immunologic: Reports: No Symptoms ED EXAM, GENERAL - Physical Exam Exam: See Below Exam Limited By: No Limitations General Appearance: Alert, WD/WN, No Apparent Distress Eye Exam: Bilateral Eye: Normal Inspection, PERRL Ears: Normal External Exam, Normal Canal, Hearing Grossly Normal, Normal TMs Ear Exam: Bilateral Ear: Auricle Normal, Canal Normal, TM normal Nose: Normal Inspection, Normal Mucosa, No Blood Throat/Mouth: Normal Inspection, Normal Lips, Normal Teeth (dentures in place), Normal Gums, Normal Oropharynx, Normal Voice, No Airway Compromise Head: Atraumatic, Normocephalic Neck: Normal Inspection, Supple, Non-Tender, Full Range of Motion Respiratory/Chest: No Respiratory Distress, No Accessory Muscle Use, Chest Non- Tender, Decreased Breath Sounds (mild), Rhonchi (moderate throughout, smoker. ). No: Respiratory Distress, Wheezing Cardiovascular: Normal Peripheral Pulses, Regular Rate, Rhythm, No Edema, No Gallop, No JVD, No Murmur, No Rub Peripheral Pulses: 2+: Radial (L), Radial (R), Posterior Tibial (L), Posterior Tibial (R) GI/Abdominal: Soft, Non-Tender (Female) Exam: Deferred Rectal (Female) Exam: Deferred Back Exam: Normal Inspection, Paraspinal Tenderness (right lateral mid/upper, scapular pain. Pain is worse with palpation, twisting, turning of the trunk. Taking right arm and abducting across the body makes her pain worse. I can manipulate the exact pain per patient by palpation and moving the patient. ). No: Vertebral Tenderness Extremities: Normal Inspection, Normal Range of Motion, Non-Tender, No Pedal Edema, Normal Capillary Refill Neurological: Alert, Oriented, Normal Cognition, Normal Gait, No Motor/Sensory Deficits Psychiatric: Normal Affect, Normal Mood Skin Exam: Warm, Dry, Intact, Normal Color, No Rash #1 Interpretation EKG Date: 12/15/20 Time: 21:06 Rhythm: NSR Course - Vital Signs Last Recorded V/S: Last Vital Signs Temp 97.9 F 12/15/20 21:18 Pulse 102 H 12/15/20 21:18 Resp 24 H 12/15/20 21:18 BP 128/87 12/15/20 21:18 Pulse Ox 93 L 12/15/20 21:18 - Orders/Labs/Meds Orders: Active Orders 24 hr Category Date Time Status Chest 2V [CR] Stat Exams 12/15/20 20:47 Taken Labs: Laboratory Tests 12/15/20 12/15/20 12/15/20 Range/Units 21:08 21:08 21:08 WBC 7.6 (5.0-10.0) 10^3/uL RBC 4.76 (4.00-5.50) 10^6/uL Hgb 13.6 (12.0-16.0) g/dL Hct 40.7 (37.0-47.0) % MCV 85.5 (82.0-94.0) fL MCH 28.6 (27.0-32.0) pg MCHC 33.4 (33.0-38.0) g/dL RDW Coeff of Nadine 15.1 H (11.0-15.0) % Plt Count 221 (150-400) 10^3/uL Neut % (Auto) 78.4 (35-85) % Lymph % (Auto) 9.5 L (10-55) % Sampson % (Auto) 10.0 (0-16) % Eos % (Auto) 2.0 (0-5) % Baso % (Auto) 0.1 (0-3) % Neut # (Auto) 5.96 (1.80-7.00) 10^3/uL Lymph # (Auto) 0.72 L (1.00-4.80) 10^3/uL Sampson # (Auto) 0.76 (0.00-0.80) 10^3/uL Eos # (Auto) 0.15 (0.00-0.45) 10^3/uL Baso # (Auto) 0.01 10^3/uL PT 20.2 H (9.7-12.3) SEC INR 1.93 H (0.92-1.18) Sodium 141 (136-145) mEq/L Potassium 4.0 (3.5-5.0) mEq/L Chloride 103 (98-106) mEq/L Carbon Dioxide 27 (21-32) mmol/L BUN 11 (7-18) mg/dL Creatinine 0.6 (0.6-1.0) mg/dL Est Cr Clr Drug Dosing 54.22 mL/min Estimated GFR (MDRD) > 60 (>=60) mL/min Glucose 111 H (75-99) mg/dL Calcium 9.0 (8.4-10.1) mg/dL Total Bilirubin 0.4 (0.0-1.0) mg/dL AST 20 (15-37) U/L ALT 20 (12-78) U/L Alkaline Phosphatase 72 (46-116) U/L Lactate Dehydrogenase 205 H (100-190) U/L Creatine Kinase 49 (21-215) U/L Troponin I < 0.017 (0.00-0.06) ng/mL NT-Pro-B Natriuret Pep 1219 H (0-1000) pg/mL Total Protein 7.3 (6.4-8.2) g/dL Albumin 3.6 (3.4-5.0) g/dL Meds: Medications Discontinued Medications Generic Name Dose Route Start Last Admin Trade Name Freq PRN Reason Stop Dose Admin Albuterol/Ipratropium 3 ml 12/15/20 21:07 12/15/20 21:27 Albuterol/Ipratropium 3.0-0.5 Mg/3 Ml Neb Soln NEB 12/15/20 21:08 3 ml ONETIME ONE Administration Ketorolac Tromethamine 30 mg 12/15/20 21:38 12/15/20 21:54 Ketorolac 30 Mg/Ml Sdv IM 12/15/20 21:39 30 mg ONETIME ONE Administration - Radiology Interpretation Free Text/Narrative:: CXR: No acute findings. Radiologist reads as thoracic injury. - Re-Assessments/Exams Free Text/Narrative Re-Assessment/Exam: 12/15/20 21:58 Patient reports her pain has improved. Will discharge patient home. Labs unr emarkable. Patient has no vetebral tenderness, no stepoffs. No neuro changes. No numbness, tingling. No urinary/bowel incontinence. If patient pain continues to have pain, should see PCP for possible CT of thoracic spine or MRI if neurological symptoms occur. Departure - Departure Time of Disposition: 21:56 Disposition: Home, Self-Care Condition: Good Clinical Impression: Strain of thoracic spine - Discharge Information *PRESCRIPTION DRUG MONITORING PROGRAM REVIEWED*: Not Applicable *COPY OF PRESCRIPTION DRUG MONITORING REPORT IN PATIENT RIGOBERTO: Not Applicable Instructions: Muscle Strain, [id number], Thoracic Strain, [id number] Referrals: Pam Maharaj PA-C [Primary Care Provider] - Forms: ED Department Discharge Additional Instructions: Followup with your primary care provider Return to the ER for worsening of condition or any emergent concerns Rest No more painting Over the Counter back patches as needed and as directed May take your medication at home for pain as prescribed - My Orders Last 24 Hours: My Active Orders 12/15/20 20:47 Chest 2V [CR] Stat - Assessment/Plan Last 24 Hours: My Active Orders 12/15/20 20:47 Chest 2V [CR] Stat Plan: PLEASE SEE RN NOTE FOR PFSH
[2020-12-15 21:19] VITALS: BP 128/87; PULSE 102
[2020-12-15 21:30] LABS: CHLORIDE,CL 103 mEq/L (98-106); SODIUM,NA 141 mEq/L (136-145)
[2020-12-15] MEDS ORDERED: Ketorolac 30 MG/ML SDV IM ONE (21:38)
== END 2020-12-15 22:05 | disposition home or self-care (01) ==
LOC: CC.ED 20:50
DX: S29.012A Strain of muscle and tendon of back wall of thorax, initial encounter (principal); I48.91 Unspecified atrial fibrillation; I10 Essential (primary) hypertension; J44.9 Chronic obstructive pulmonary disease, unspecified; M19.90 Unspecified osteoarthritis, unspecified site; F17.200 Nicotine dependence, unspecified, uncomplicated; Z88.1 Allergy status to other antibiotic agents; Z88.5 Allergy status to narcotic agent; Z88.8 Allergy status to other drugs, medicaments and biological substances; Z79.899 Other long term (current) drug therapy; X58.XXXA Exposure to other specified factors, initial encounter; R06.02 Shortness of breath
CPT/HCPCS: 36415; 71046; 80053; 82550; 83615; 83880; 84484; 85025; 85610; 93005; 93010; 94640; 96372; 99284; 99285-25; J1885; J7620-GY

== ENCOUNTER 2021-08-29 11:29 | Inpatient (IN) | payer MEDICARE ==
[2021-08-29 11:53] LABS: CHLORIDE,CL 106 mEq/L (98-106); SODIUM,NA 146 mEq/L (136-145)
[2021-08-29] MEDS ORDERED: Sodium Chloride 0.9% 250 ML IV SCH (14:00)
[2021-08-29] MEDS ORDERED: Sodium Chloride 0.9% 10 ML Syringe FLUSH PRN (14:10)
[2021-08-29] MEDS ORDERED: Pantoprazole 40 MG Vial IVPUSH ONE (14:15)
[2021-08-29] MEDS ORDERED: Acetaminophen/HYDROcodone 325-5 MG Tab PO PRN (14:16)
[2021-08-29] MEDS ORDERED: Albuterol/Ipratropium 3.0-0.5 MG/3 ML Neb Soln NEB PRN (14:16)
[2021-08-29] MEDS: Metoprolol Tartrate 25 MG Tab PO SCH (20:42)
[2021-08-29] MEDS ORDERED: Diltiazem 120 MG Cap.CD ONE (21:16)
[2021-08-30 07:33] LABS: CHLORIDE,CL 108 mEq/L (98-106); SODIUM,NA 145 mEq/L (136-145)
[2021-08-30] MEDS: Metoprolol Tartrate 25 MG Tab PO SCH (07:56)
[2021-08-30 08:00] VITALS: BP 127/60; PULSE 72
[2021-08-30] MEDS ORDERED: Diltiazem 120 MG Cap.CD PO SCH ×2 (08:00→20:00)
--- NOTE | 2021-08-30 10:34 | DISCH ---
ADMISSION DIAGNOSES: 1. Microcytic anemia. 2. Chronic atrial fibrillation. 3. Chronic obstructive pulmonary disease. 4. Chronic anticoagulation secondary to Coumadin use. DISCHARGE DIAGNOSIS: 1. MICROCYTIC ANEMIA. 2. CHRONIC ATRIAL FIBRILLATION. 3. CHRONIC OBSTRUCTIVE PULMONARY DISEASE. 4. CHRONIC ANTICOAGULATION SECONDARY TO COUMADIN USE. HISTORY: The patient is an 86-year-old female with a known history of lung cancer. She suffers from AFib and is on Coumadin. She presented for fatigue to Pam [facility]araj, found to have a hemoglobin of 7 with an MCV of 71.7. INR was 3.7. The patient was admitted for blood transfusion and workup. HOSPITAL COURSE: The patient has been completely fine since here. Her vitals have been stable and unremarkable. She received 2 units of blood and her hemoglobin is up to 9.9 today. She is saturating at 99%. She has had no complaints of GI bleeding or other and she is unsure if she has had any dark stools. We have been unable to get a Hemoccult because she has not had a stool since admit. We did start her on IV Protonix and we will send her home on oral Protonix. She needs to be scheduled for outpatient endoscopy including upper and lower in the near future. We will start her on oral iron as well. The patient is going to hold her Coumadin until we get a workup completed. COMPLICATIONS: During her stay were none. CONSULTATIONS: None. DISPOSITION: Discharged to home. LESLI /[id number]
== END 2021-08-30 13:43 | disposition home or self-care (01) | DRG 812 ==
LOC: CC.MS 11:29 → CC.FCMC 11:29 → CC.MS 12:21 → UNDOADMIN 12:21 → CC.MS 14:10
PROVIDERS: ADMIT Physician Assistant Medical; ATTEND Family Medicine
PROC: 30233N1 Transfusion of Nonautologous Red Blood Cells into Peripheral Vein, Percutaneous Approach (ICD-10-PCS; principal; 2021-08-29)
DX: D50.9 Iron deficiency anemia, unspecified (principal); I48.20 Chronic atrial fibrillation, unspecified; J44.9 Chronic obstructive pulmonary disease, unspecified; M81.0 Age-related osteoporosis without current pathological fracture; I25.10 Atherosclerotic heart disease of native coronary artery without angina pectoris; Z96.649 Presence of unspecified artificial hip joint; F17.210 Nicotine dependence, cigarettes, uncomplicated; Z90.49 Acquired absence of other specified parts of digestive tract; Z79.01 Long term (current) use of anticoagulants; Z85.118 Personal history of other malignant neoplasm of bronchus and lung; Z88.1 Allergy status to other antibiotic agents; Z88.5 Allergy status to narcotic agent; Z88.8 Allergy status to other drugs, medicaments and biological substances; Z79.899 Other long term (current) drug therapy; Z98.890 Other specified postprocedural states
CPT/HCPCS: 36415; 36430; 71046; 80048; 80053; 82728; 83540; 83550; 85025; 85610; 86850; 86900; 86901; 86920; 86922; A9270-GY; C9113; J7050; P9016

== ENCOUNTER → 2021-09-06 | Day surgery (SDC) | payer MEDICARE ==
[~2021-09-06] MED LIST changes: -Acetaminophen/HYDROcodone 325-5 MG Tab PO ONE; +Ketamine 200 MG/20 ML MDV ONE; +Lactated Ringers 1,000 ML IV SCH; +Lidocaine 2% 5 ML SDV ONE; +Phenylephrine 1% 10 MG/ML SDV ONE; +Propofol 200 MG/20 ML SDV ONE; +fentaNYL 100 MCG/2 ML SDV ONE
--- NOTE | 2021-09-06 10:05 | OR ---
DATE OF OPERATION: 09/06/2021 PREOPERATIVE DIAGNOSIS: IRON-DEFICIENCY ANEMIA WITH HEME-POSITIVE STOOL. POSTOPERATIVE DIAGNOSIS: IRON-DEFICIENCY ANEMIA WITH HEME-POSITIVE STOOL. SURGEON: Laureano Ghosh MD PROCEDURE: 1. ESOPHAGOGASTRODUODENOSCOPY WITH BIOPSY X2, AGUSTIN. 2. FULL-LENGTH COLONOSCOPY. ANESTHESIA: MAC. COMPLICATIONS: None. SPECIMEN: 1. Antral biopsy x2. 2. Antral AGUSTIN. FINDINGS: 1. Full-length diagnostic EGD. 2. Mild chronic-appearing antral gastritis with healed erosions. No active bleeding. 3. Full-length diagnostic colonoscopy. 4. Hyperplastic polyp, rectosigmoid junction. RECOMMENDATIONS: The patient in the past has refused capsule endoscopy for similar-type workup. We will discuss with her again. For now remain off her anticoagulation for atrial fibrillation. INDICATIONS: The patient has known atrial fibrillation and is anticoagulated with Coumadin. She presented with increased shortness of breath and exertional dyspnea, and found to have a hemoglobin of 7. Pam Maharaj admitted her and ultimately the patient received blood, had her Coumadin stopped, and is now in for a followup scope. During her hospitalization, she never had any stools checked for Hemoccult, but her iron levels confirmed marked deficiency. DESCRIPTION OF PROCEDURE: The patient was prepped and draped, placed in the left lateral decubitus position with the head of bed elevated. A lubricated Olympus gastroscope was inserted over bite block and advanced to cricopharyngeus area. The scope was easily intubated in the esophagus. Esophageal lining was benign in its entire course. The Z-line was crisp around 39 cm. No hernia. No spontaneous reflux. There was no distal esophagitis, stricturing, ulceration, or Mclean's changes. The scope was advanced into the stomach, through the pylorus, and into the second portion of the duodenum. This and the duodenal bulb were completely benign. The scope was brought back into the stomach and retroflexed. The upper fundus and cardia were unremarkable. Upon straightening, the rest of the fundus appeared benign. The antrum appeared to have very mild chronic-appearing gastritis with multiple healed erosions. We did do a biopsy of 2 of these and CLOtest. No other lesions were identified. No active bleeding sites were found. Air was suctioned and the scope was removed without complication. A lubricated Olympus colonoscope was then inserted and with ease advanced to the cecum. Direct visualization of the ileocecal valve and appendiceal orifice accomplished. The bowel prep was excellent. Upon withdrawal of the scope, the cecum, ascending, and transverse colons were completely benign. Throughout the length of the colon, I could find no signs of any active bleeding sites, colitis, or vascular abnormalities. No diverticula, and no polyps, masses, or otherwise. The patient does have a few little very small hyperplastic polyps clustered in the rectosigmoid and proximal rectal vault, both were not removed. The rectum itself was unremarkable on retroflexion showed no perianal lesions. Air was then suctioned. The scope was removed without complication. BRIAN/SAMANTA /[id number]
[2021-09-06 10:16] VITALS: BP 151/62; PULSE 100
== END ==
LOC: CC.SDS 07:30
PROVIDERS: ATTEND Family Medicine
DX: K63.5 Polyp of colon (principal); K31.89 Other diseases of stomach and duodenum; D50.9 Iron deficiency anemia, unspecified; K29.50 Unspecified chronic gastritis without bleeding; J44.9 Chronic obstructive pulmonary disease, unspecified; D68.59 Other primary thrombophilia; I48.20 Chronic atrial fibrillation, unspecified; Z88.1 Allergy status to other antibiotic agents; Z88.8 Allergy status to other drugs, medicaments and biological substances; Z88.5 Allergy status to narcotic agent; Z79.899 Other long term (current) drug therapy; Z79.01 Long term (current) use of anticoagulants; Z90.49 Acquired absence of other specified parts of digestive tract; Z98.890 Other specified postprocedural states
CPT/HCPCS: 36415; 43239; 45378; 85610; 87081; J2370; J2704; J3010; J7120; 00813; 88305; 88342

== ENCOUNTER 2021-09-20 11:50 | Inpatient (IN) | payer MEDICARE ==
[2021-09-20] MEDS ORDERED: Morphine 2 MG/ML SYRINGE IVPUSH ONE (12:58)
[2021-09-20] MEDS ORDERED: Sodium Chloride 0.9% 10 ML Syringe FLUSH PRN (12:58)
[2021-09-20 13:01] LABS: CHLORIDE,CL 102 mEq/L (98-106); SODIUM,NA 138 mEq/L (136-145)
--- NOTE | 2021-09-20 13:56 | EDM.PDOC ---
ED HPI GENERAL MEDICAL PROBLEM - General Chief Complaint: General Stated Complaint: LBP Time Seen by Provider: 09/20/21 12:15 Source of Information: Reports: Patient History Limitations: Reports: No Limitations - History of Present Illness INITIAL COMMENTS - FREE TEXT/NARRATIVE: Mrs. Stanley is an 86 year old female that presents to the ED with complaints of bilateral back pain. States she had increased pain across the mid back for the past day. States her breathing has been a bit more difficult the past 2 weeks. Pain is worse with movement. Also states that she feels like she has more secretions in her throat. Has had a cough but not able to cough up sputum. Denies significant fever or chills. States history of COPD and lung cancer, but report her symptoms have worsened over the past 2 weeks. Denies urinary complaints. Alert and oriented x 3. Onset: Gradual Duration: Week(s): (two) Location: Reports: Back Quality: Reports: Sharp Severity: Moderate Improves with: Reports: None Worsens with: Reports: Movement Associated Symptoms: Reports: Cough, Shortness of Breath - Related Data Allergies Allergy/AdvReac Type Severity Reaction Status Date / Time azithromycin Allergy Nausea and Verified 09/20/21 13:44 Vomiting codeine Allergy Cannot Verified 09/20/21 13:44 Remember levofloxacin [From Levaquin] Allergy Vomiting Verified 09/20/21 13:44 oxycodone Allergy Dizziness Verified 09/20/21 13:44 prednisone AdvReac Intermediate Other Verified 09/20/21 13:44 Home Meds: Home Meds Metoprolol Tartrate [Lopressor] 50 mg PO BID 02/08/15 [History] Multivitamin [Daily Vitamin] 1 each PO BEDTIME 03/12/15 [History] Albuterol/Ipratropium [DuoNeb 3.0-0.5 MG/3 ML] 3 ml NEB QIDRT PRN 11/15/18 [History] Acetaminophen/HYDROcodone [[place] 325-5 MG] 1 tab PO Q6H PRN #30 tablet 11/29/18 [Rx] dilTIAZem HCL [Cartia Xt] 120 mg PO DAILY 08/29/21 [History] Cholecalciferol (Vitamin D3) [Vitamin D3] 2,000 unit PO DAILY 09/04/21 [History] Denosumab [Prolia] 60 mg SUBCUT ASDIRECTED 09/04/21 [History] Past Medical History Cardiovascular History: Reports: Afib, Blood Clots/VTE/DVT, Hypertension, SOB on Exertion, Stents Respiratory History: Reports: COPD, Pneumonia, Recurrent, SOB Genitourinary History: Reports: Renal Calculus [employer] History: Reports: Musculoskeletal History: Reports: Osteoarthritis Psychiatric History: Reports: Anxiety Hematologic History: Reports: Anemia Oncologic (Cancer) History: Reports: Lung - Past Surgical History HEENT Surgical History: Reports: Cataract Surgery Cardiovascular Surgical History: Reports: Coronary Artery Stent, Varicose Respiratory Surgical History: Reports: Lung Resection, Other (See Below) Other Respiratory Surgeries/Procedures: 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 GI Surgical History: Reports: Appendectomy Musculoskeletal Surgical History: Reports: Hip Replacement, Shoulder Surgery, Other (See Below) Other Musculoskeletal Surgeries/Procedures:: hammertoes and bunions both feet Oncologic Surgical History: Reports: Other (See Below) Other Oncologic Surgeries/Procedures: lower third of right lung removed Social & Family History - Family History Cardiac: Reports: Hypertension - Caffeine Use Caffeine Use: Reports: Coffee - Living Situation & Occupation Living situation: Reports: with Family ED ROS GENERAL - Review of Systems Review Of Systems: See Below Constitutional: Reports: Weakness. Denies: Fever, Chills HEENT: Reports: Other ("throat tickle") Respiratory: Reports: Shortness of Breath, Cough Cardiovascular: Denies: Chest Pain, Dyspnea on Exertion Endocrine: Reports: No Symptoms GI/Abdominal: Denies: Abdominal Pain, Black Stool, Bloody Stool, Constipation, Diarrhea : Reports: Flank Pain Musculoskeletal: Reports: Back Pain (bilateral mid back) Skin: Reports: No Symptoms Neurological: Denies: Confusion, Dizziness, Headache Psychiatric: Denies: Agitation, Anxiety, Confusion Hematologic/Lymphatic: Reports: No Symptoms Immunologic: Reports: No Symptoms ED EXAM, GENERAL - Physical Exam Exam: See Below General Appearance: Alert, WD/WN, Mild Distress Eye Exam: Bilateral Eye: PERRL Ears: Normal External Exam, Hearing Grossly Normal Nose: Normal Inspection, Normal Mucosa, Other Throat/Mouth: Normal Inspection, Normal Oropharynx, Normal Voice, No Airway Compromise Head: Atraumatic, Normocephalic Neck: Normal Inspection, Supple, Non-Tender. No: Lymphadenopathy (L), Lymphadenopathy (R) Respiratory/Chest: Crackles, Rales, Rhonchi Cardiovascular: Regular Rate, Rhythm, No Gallop, No Rub GI/Abdominal: Soft, Non-Tender (Female) Exam: Deferred Rectal (Female) Exam: Deferred Back Exam: CVA Tenderness (L), CVA Tenderness (R). No: Paraspinal Tenderness, Vertebral Tenderness Extremities: Normal Inspection, No Pedal Edema Neurological: Alert, Oriented, Normal Cognition Psychiatric: Normal Affect, Normal Mood Skin Exam: Warm, Dry, Intact Lymphatic: No Adenopathy Course - Orders/Labs/Meds Orders: Active Orders 24 hr Category Date Time Status Chest 2V [CR] Stat Exams 09/20/21 12:24 Taken Sodium Chloride 0.9% [Saline Flush] Med 09/20/21 12:58 Active 10 ml FLUSH ASDIRECTED PRN Saline Lock Insert [OM.PC] Routine Oth 09/20/21 12:58 Ordered Medication Orders Sodium Chloride (Sodium Chloride 0.9% 10 Ml Syringe) 10 ml FLUSH ASDIRECTED PRN PRN Reason: Keep Vein Open Labs: Laboratory Tests 09/20/21 09/20/21 09/20/21 Range/Units 12:06 12:06 12:06 WBC 11.9 H (4.0-11.0) 10^3/uL RBC 4.92 (4.00-5.50) x10^6/uL Hgb 11.7 L (12.0-16.0) g/dL Hct 38.2 (37.0-47.0) % MCV 77.6 L (83.0-97.0) fL MCH 23.8 L (27.0-32.0) pg MCHC 30.6 L (32.0-36.0) g/dL RDW Coeff of Nadine 21.7 H (11.0-15.0) % Plt Count 297 (150-400) 10^3/uL Immature Gran % (Auto) 0.2 (0.0-4.9) % Neut % (Auto) 88.9 H (41-71) % Lymph % (Auto) 4.3 L (24-44) % [place] % (Auto) 6.1 (0-10) % Eos % (Auto) 0.3 (0-6) % Baso % (Auto) 0.2 (0-1) % Neut # (Auto) 10.63 H (1.80-8.00) x10^3/uL Lymph # (Auto) 0.51 L (0.60-5.00) 10^3/uL [place] # (Auto) 0.73 (0.00-1.50) 10^3/uL Eos # (Auto) 0.03 (0.00-1.50) 10^3/uL Baso # (Auto) 0.02 (0.00-0.50) 10^3/uL Immature Gran # (Auto) 0.02 (0.00-0.49) 10^3/uL PT (9.7-12.3) SEC INR (0.92-1.18) Sodium 138 (136-145) mEq/L Potassium 3.8 (3.5-5.0) mEq/L Chloride 102 (98-106) mEq/L Carbon Dioxide 29 (21-32) mmol/L BUN 14 (7-18) mg/dL Creatinine 0.8 (0.6-1.0) mg/dL Est Cr Clr Drug Dosing TNP Estimated GFR (MDRD) > 60 (>=60) mL/min Glucose 115 H (75-99) mg/dL Calcium 8.7 (8.4-10.1) mg/dL Total Bilirubin 0.5 (0.0-1.0) mg/dL AST 18 (15-37) U/L ALT 21 (12-78) U/L Alkaline Phosphatase 110 (46-116) U/L C-Reactive Protein 6.2 H (0.2-0.8) mg/dL NT-Pro-B Natriuret Pep 983 (0-1000) pg/mL Total Protein 7.0 (6.4-8.2) g/dL Albumin 3.4 (3.4-5.0) g/dL Urine Color Yellow (YELLOW) Urine Appearance Clear (CLEAR) Urine pH 5.5 (4.5-8.0) Ur Specific [place] 1.020 (1.003-1.020) Urine Protein Negative (NEGATIVE) mg/dL Urine Glucose (UA) Negative (NEGATIVE) mg/dL Urine Ketones Negative (NEGATIVE) mg/dL Urine Occult Blood Trace-intact H (NEGATIVE) Urine Nitrite Negative (NEGATIVE) Urine Bilirubin Negative (NEGATIVE) Urine Urobilinogen 0.2 (0.2-1.0) EU/dL Ur Leukocyte Esterase Trace H (NEGATIVE) Urine RBC 0-5 (0-5) /HPF Urine WBC 0-5 (0-5) /HPF Urinalysis Comment 09/20/21 Range/Units 12:40 WBC (4.0-11.0) 10^3/uL RBC (4.00-5.50) x10^6/uL Hgb (12.0-16.0) g/dL Hct (37.0-47.0) % MCV (83.0-97.0) fL MCH (27.0-32.0) pg MCHC (32.0-36.0) g/dL RDW Coeff of Nadine (11.0-15.0) % Plt Count (150-400) 10^3/uL Immature Gran % (Auto) (0.0-4.9) % Neut % (Auto) (41-71) % Lymph % (Auto) (24-44) % [place] % (Auto) (0-10) % Eos % (Auto) (0-6) % Baso % (Auto) (0-1) % Neut # (Auto) (1.80-8.00) x10^3/uL Lymph # (Auto) (0.60-5.00) 10^3/uL [place] # (Auto) (0.00-1.50) 10^3/uL Eos # (Auto) (0.00-1.50) 10^3/uL Baso # (Auto) (0.00-0.50) 10^3/uL Immature Gran # (Auto) (0.00-0.49) 10^3/uL PT 11.6 (9.7-12.3) SEC INR 1.06 (0.92-1.18) Sodium (136-145) mEq/L Potassium (3.5-5.0) mEq/L Chloride (98-106) mEq/L Carbon Dioxide (21-32) mmol/L BUN (7-18) mg/dL Creatinine (0.6-1.0) mg/dL Est Cr Clr Drug Dosing Estimated GFR (MDRD) (>=60) mL/min Glucose (75-99) mg/dL Calcium (8.4-10.1) mg/dL Total Bilirubin (0.0-1.0) mg/dL AST (15-37) U/L ALT (12-78) U/L Alkaline Phosphatase (46-116) U/L C-Reactive Protein (0.2-0.8) mg/dL NT-Pro-B Natriuret Pep (0-1000) pg/mL Total Protein (6.4-8.2) g/dL Albumin (3.4-5.0) g/dL Urine Color (YELLOW) Urine Appearance (CLEAR) Urine pH (4.5-8.0) Ur Specific [place] (1.003-1.020) Urine Protein (NEGATIVE) mg/dL Urine Glucose (UA) (NEGATIVE) mg/dL Urine Ketones (NEGATIVE) mg/dL Urine Occult Blood (NEGATIVE) Urine Nitrite (NEGATIVE) Urine Bilirubin (NEGATIVE) Urine Urobilinogen (0.2-1.0) EU/dL Ur Leukocyte Esterase (NEGATIVE) Urine RBC (0-5) /HPF Urine WBC (0-5) /HPF Urinalysis Comment Meds: Medications Generic Name Dose Route Start Last Admin Trade Name Freq PRN Reason Stop Dose Admin Sodium Chloride 10 ml 09/20/21 12:58 Sodium Chloride 0.9% 10 Ml Syringe FLUSH ASDIRECTED PRN Keep Vein Open Discontinued Medications Generic Name Dose Route Start Last Admin Trade Name Freq PRN Reason Stop Dose Admin Morphine Sulfate 2 mg 09/20/21 12:58 Morphine 2 Mg/Ml Syringe IVPUSH 09/20/21 12:59 ONETIME ONE - Re-Assessments/Exams Free Text/Narrative Re-Assessment/Exam: This is an 86 year old female that presented to the ED with posterior bilateral thoracic back with gradual onset of increased breathing difficulties. Reports breathing had worsened over the past couple weeks and feels like she needs to cough out sputum but nothing comes up. Due to location of back pain a UA was obtained showing small leukocyte esterase and small blood which is consistent with prior UA results. CBC, CMP, and CRP obtained. WBC count 11.7. CRP is elevated. A chest xray obtained and reviewed with no obvious consolidations and consistent or previous xray findings. O2 Sats in upper 80's on RA Plan will be to admit to acute care inpatient with likely COPD exacerbation and pneumonia. Will treat with antibiotics. Pain control for mid back pain. Departure - Departure Time of Disposition: 14:00 Disposition: Admitted As Inpatient 66 Condition: Fair Clinical Impression: Pneumonia, Back pain, COPD (chronic obstructive pulmonary disease) - Discharge Information *PRESCRIPTION DRUG MONITORING PROGRAM REVIEWED*: Not Applicable *COPY OF PRESCRIPTION DRUG MONITORING REPORT IN PATIENT RIGOBERTO: Not Applicable - Problem List & Annotations (1) Pneumonia SNOMED Code(s): 154907700 Code(s): J18.9 - PNEUMONIA, UNSPECIFIED ORGANISM Status: Acute Priority: High Current Visit: Yes Qualifiers: Pneumonia type: due to unspecified organism (2) Back pain SNOMED Code(s): 081506125 Code(s): M54.9 - DORSALGIA, UNSPECIFIED Status: Acute Priority: Medium Current Visit: Yes Qualifiers: Back pain location: thoracic back pain Chronicity: unspecified Back pain laterality: bilateral Qualified Code(s): M54.6 - Pain in thoracic spine - Problem List Review Problem List Initiated/Reviewed/Updated: Yes - My Orders Last 24 Hours: My Active Orders 09/20/21 12:58 Sodium Chloride 0.9% [Saline Flush] 10 ml FLUSH ASDIRECTED PRN Saline Lock Insert [OM.PC] Routine - Assessment/Plan Admission H&P: Please use this note as an admission H&P Last 24 Hours: My Active Orders 09/20/21 12:58 Sodium Chloride 0.9% [Saline Flush] 10 ml FLUSH ASDIRECTED PRN Saline Lock Insert [OM.PC] Routine Plan: Admit acute care inpatient
[2021-09-20] MEDS ORDERED: Acetaminophen 325 MG Tab PO PRN (14:46)
[2021-09-20] MEDS ORDERED: Morphine 2 MG/ML SYRINGE IVPUSH PRN (14:46)
[2021-09-20] MEDS ORDERED: Ondansetron 4 MG/2 ML SDV IV PRN (14:46)
[2021-09-20] MEDS ORDERED: Acetaminophen/HYDROcodone 325-5 MG Tab PO PRN (14:46)
[2021-09-20] MEDS ORDERED: Albuterol 0.083% 2.5 MG/3 ML Neb Soln NEB PRN (14:46)
[2021-09-20] MEDS: Doxycycline 100 MG Tab PO SCH ×2 (16:44→19:26)
[2021-09-20] MEDS: cefTRIAXone 1 GM Vial IVPUSH SCH (17:03)
[2021-09-20] MEDS: Albuterol/Ipratropium 3.0-0.5 MG/3 ML Neb Soln NEB PRN ×2 (17:04→21:13)
[2021-09-20] MEDS: Metoprolol Tartrate 50 MG Tab PO SCH (19:26)
[2021-09-20] MEDS ORDERED: Ibuprofen 200 MG Tab PO ONE (21:43)
[2021-09-21] MEDS: Albuterol/Ipratropium 3.0-0.5 MG/3 ML Neb Soln NEB PRN ×3 (02:10→19:18)
[2021-09-21 07:34] LABS: CHLORIDE,CL 104 mEq/L (98-106); SODIUM,NA 138 mEq/L (136-145)
[2021-09-21] MEDS: Diltiazem 120 MG Cap.CD PO SCH (07:51)
[2021-09-21] MEDS: Doxycycline 100 MG Tab PO SCH ×2 (07:51→19:17)
[2021-09-21] MEDS: Metoprolol Tartrate 50 MG Tab PO SCH ×2 (07:51→19:18)
--- NOTE | 2021-09-21 10:59 | PCM.PN ---
- General Info Date of Service: 09/21/21 Admission Dx/Problem (Free Text): Pneumonia Back Pain Subjective Update: Patient continues to have severe back pain. States considerable with movement. Does not feel the 1 pain pill or the morphine do much for her. Admits that takes a pain med at home so questions if only one will work for acute problems. Has chronic cough, does not feel it is changed from her norm. Did spike a high fever of 102 during the night. Started oxygen on her last evening. Denies any increased shortness of breath. No nausea/vomiting or diarrhea. No burning with urination. Functional Status: Reports: Tolerating Diet, Urinating. Denies: Pain Controlled, Ambulating - Review of Systems General: Reports: Weakness, Fatigue HEENT: Reports: No Symptoms Pulmonary: Reports: Shortness of Breath (chronic in nature, no change), Cough Cardiovascular: Denies: Chest Pain, Edema, Lightheadedness Gastrointestinal: Denies: Abdominal Pain, Nausea, Vomiting Genitourinary: Reports: No Symptoms Musculoskeletal: Reports: Back Pain Skin: Reports: No Symptoms Neurological: Reports: Weakness - Patient Data Vitals - Most Recent: Last Vital Signs Temp 97.6 F 09/21/21 07:57 Pulse 105 H 09/21/21 07:57 Resp 16 09/21/21 07:57 BP 104/46 L 09/21/21 07:57 Pulse Ox 93 L 09/21/21 07:57 Weight - Most Recent: 104 lb 9.6 oz Lab Results Last 24 Hours: Laboratory Results - last 24 hr 09/20/21 09/20/21 09/20/21 Range/Units 12:06 12:06 12:06 WBC 11.9 H (4.0-11.0) 10^3/uL RBC 4.92 (4.00-5.50) x10^6/uL Hgb 11.7 L (12.0-16.0) g/dL Hct 38.2 (37.0-47.0) % MCV 77.6 L (83.0-97.0) fL MCH 23.8 L (27.0-32.0) pg MCHC 30.6 L (32.0-36.0) g/dL RDW Coeff of Nadine 21.7 H (11.0-15.0) % Plt Count 297 (150-400) 10^3/uL Immature Gran % (Auto) 0.2 (0.0-4.9) % Neut % (Auto) 88.9 H (41-71) % Lymph % (Auto) 4.3 L (24-44) % [place] % (Auto) 6.1 (0-10) % Eos % (Auto) 0.3 (0-6) % Baso % (Auto) 0.2 (0-1) % Neut # (Auto) 10.63 H (1.80-8.00) x10^3/uL Lymph # (Auto) 0.51 L (0.60-5.00) 10^3/uL [place] # (Auto) 0.73 (0.00-1.50) 10^3/uL Eos # (Auto) 0.03 (0.00-1.50) 10^3/uL Baso # (Auto) 0.02 (0.00-0.50) 10^3/uL Immature Gran # (Auto) 0.02 (0.00-0.49) 10^3/uL PT (9.7-12.3) SEC INR (0.92-1.18) Sodium 138 (136-145) mEq/L Potassium 3.8 (3.5-5.0) mEq/L Chloride 102 (98-106) mEq/L Carbon Dioxide 29 (21-32) mmol/L BUN 14 (7-18) mg/dL Creatinine 0.8 (0.6-1.0) mg/dL Est Cr Clr Drug Dosing TNP Estimated GFR (MDRD) > 60 (>=60) mL/min Glucose 115 H (75-99) mg/dL Calcium 8.7 (8.4-10.1) mg/dL Total Bilirubin 0.5 (0.0-1.0) mg/dL AST 18 (15-37) U/L ALT 21 (12-78) U/L Alkaline Phosphatase 110 (46-116) U/L C-Reactive Protein 6.2 H (0.2-0.8) mg/dL NT-Pro-B Natriuret Pep 983 (0-1000) pg/mL Total Protein 7.0 (6.4-8.2) g/dL Albumin 3.4 (3.4-5.0) g/dL Urine Color Yellow (YELLOW) Urine Appearance Clear (CLEAR) Urine pH 5.5 (4.5-8.0) Ur Specific [place] 1.020 (1.003-1.020) Urine Protein Negative (NEGATIVE) mg/dL Urine Glucose (UA) Negative (NEGATIVE) mg/dL Urine Ketones Negative (NEGATIVE) mg/dL Urine Occult Blood Trace-intact H (NEGATIVE) Urine Nitrite Negative (NEGATIVE) Urine Bilirubin Negative (NEGATIVE) Urine Urobilinogen 0.2 (0.2-1.0) EU/dL Ur Leukocyte Esterase Trace H (NEGATIVE) Urine RBC 0-5 (0-5) /HPF Urine WBC 0-5 (0-5) /HPF Urinalysis Comment 09/20/21 09/21/21 09/21/21 Range/Units 12:40 07:23 07:23 WBC 11.2 H (4.0-11.0) 10^3/uL RBC 4.49 (4.00-5.50) x10^6/uL Hgb 10.6 L (12.0-16.0) g/dL Hct 34.5 L (37.0-47.0) % MCV 76.8 L (83.0-97.0) fL MCH 23.6 L (27.0-32.0) pg MCHC 30.7 L (32.0-36.0) g/dL RDW Coeff of Nadine 21.7 H (11.0-15.0) % Plt Count 232 (150-400) 10^3/uL Immature Gran % (Auto) 0.4 (0.0-4.9) % Neut % (Auto) 85.0 H (41-71) % Lymph % (Auto) 6.6 L (24-44) % [place] % (Auto) 6.9 (0-10) % Eos % (Auto) 0.8 (0-6) % Baso % (Auto) 0.3 (0-1) % Neut # (Auto) 9.56 H (1.80-8.00) x10^3/uL Lymph # (Auto) 0.74 (0.60-5.00) 10^3/uL [place] # (Auto) 0.78 (0.00-1.50) 10^3/uL Eos # (Auto) 0.09 (0.00-1.50) 10^3/uL Baso # (Auto) 0.03 (0.00-0.50) 10^3/uL Immature Gran # (Auto) 0.04 (0.00-0.49) 10^3/uL PT 11.6 (9.7-12.3) SEC INR 1.06 (0.92-1.18) Sodium 138 (136-145) mEq/L Potassium 3.7 (3.5-5.0) mEq/L Chloride 104 (98-106) mEq/L Carbon Dioxide 31 (21-32) mmol/L BUN 15 (7-18) mg/dL Creatinine 0.7 (0.6-1.0) mg/dL Est Cr Clr Drug Dosing 43.21 Estimated GFR (MDRD) > 60 (>=60) mL/min Glucose 115 H (75-99) mg/dL Calcium 8.5 (8.4-10.1) mg/dL Total Bilirubin (0.0-1.0) mg/dL AST (15-37) U/L ALT (12-78) U/L Alkaline Phosphatase (46-116) U/L C-Reactive Protein 20.7 H (0.2-0.8) mg/dL NT-Pro-B Natriuret Pep (0-1000) pg/mL Total Protein (6.4-8.2) g/dL Albumin (3.4-5.0) g/dL Urine Color (YELLOW) Urine Appearance (CLEAR) Urine pH (4.5-8.0) Ur Specific [place] (1.003-1.020) Urine Protein (NEGATIVE) mg/dL Urine Glucose (UA) (NEGATIVE) mg/dL Urine Ketones (NEGATIVE) mg/dL Urine Occult Blood (NEGATIVE) Urine Nitrite (NEGATIVE) Urine Bilirubin (NEGATIVE) Urine Urobilinogen (0.2-1.0) EU/dL Ur Leukocyte Esterase (NEGATIVE) Urine RBC (0-5) /HPF Urine WBC (0-5) /HPF Urinalysis Comment Med Orders - Current: Current Medications Acetaminophen (Acetaminophen 325 Mg Tab) 650 mg PO Q4H PRN PRN Reason: Pain (Mild 1-3)/fever Last Admin: 09/20/21 19:29 Dose: 325 mg Documented by: Hydrocodone Bitart/Acetaminophen (Acetaminophen/Hydrocodone 325-5 Mg Tab) 1 - 2 tab PO Q6H PRN PRN Reason: Pain Albuterol (Albuterol 0.083% 2.5 Mg/3 Ml Neb Soln) 2.5 mg NEB Q2H PRN PRN Reason: Shortness Of Breath/wheezing Albuterol/Ipratropium (Albuterol/Ipratropium 3.0-0.5 Mg/3 Ml Neb Soln) 3 ml NEB Q4H PRN PRN Reason: Shortness Of Breath/wheezing Last Admin: 09/21/21 06:11 Dose: 3 ml Documented by: Ceftriaxone Sodium (Ceftriaxone 1 Gm Vial) 1 gm IVPUSH Q24H [facility] Last Admin: 09/20/21 17:03 Dose: 1 gm Documented by: Diltiazem HCl (Diltiazem 120 Mg Cap.Cd) 120 mg PO DAILY [facility] Last Admin: 09/21/21 07:51 Dose: 120 mg Documented by: Doxycycline Monohydrate (Doxycycline 100 Mg Tab) 100 mg PO BID [facility] Last Admin: 09/21/21 07:51 Dose: 100 mg Documented by: Methylprednisolone Sodium Succinate (Methylprednisolone Sodium Succinate 125 Mg/2 Ml Sdv) 62.5 mg IVPUSH Q12H [facility] Metoprolol Tartrate (Metoprolol Tartrate 50 Mg Tab) 50 mg PO BID [facility] Last Admin: 09/21/21 07:51 Dose: 50 mg Documented by: Morphine Sulfate (Morphine 2 Mg/Ml Syringe) 2 mg IVPUSH Q2H PRN PRN Reason: Pain (severe 7-10) Last Admin: 09/21/21 07:52 Dose: 2 mg Documented by: Ondansetron HCl (Ondansetron 4 Mg/2 Ml Sdv) 4 mg IV Q4H PRN PRN Reason: Nausea/Vomiting Sodium Chloride (Sodium Chloride 0.9% 10 Ml Syringe) 10 ml FLUSH ASDIRECTED PRN PRN Reason: Keep Vein Open Discontinued Medications Hydrocodone Bitart/Acetaminophen (Acetaminophen/Hydrocodone 325-5 Mg Tab) 1 tab PO Q6H PRN PRN Reason: Pain Last Admin: 09/20/21 19:30 Dose: 1 tab Documented by: Ibuprofen (Ibuprofen 200 Mg Tab) 400 mg PO ONETIME ONE Stop: 09/20/21 21:44 Last Admin: 09/20/21 22:12 Dose: 400 mg Documented by: Morphine Sulfate (Morphine 2 Mg/Ml Syringe) 2 mg IVPUSH ONETIME ONE Stop: 09/20/21 12:59 Last Admin: 09/20/21 13:10 Dose: 2 mg Documented by: - Exam Quality Assessment: Supplemental Oxygen General: Alert, Oriented, Cooperative HEENT: Mucous Membr. Moist/[place] Neck: Supple Lungs: Decreased Breath Sounds, Rhonchi Cardiovascular: Regular Rate, Regular Rhythm GI/Abdominal Exam: Normal Bowel Sounds, Soft, Non-Tender Extremities: Normal Inspection, No Pedal Edema Skin: Warm, Dry Neurological: No New Focal Deficit - Patient Data Lab Results Last 24 hrs: Laboratory Results - last 24 hr 09/20/21 09/20/21 09/20/21 Range/Units 12:06 12:06 12:06 WBC 11.9 H (4.0-11.0) 10^3/uL RBC 4.92 (4.00-5.50) x10^6/uL Hgb 11.7 L (12.0-16.0) g/dL Hct 38.2 (37.0-47.0) % MCV 77.6 L (83.0-97.0) fL MCH 23.8 L (27.0-32.0) pg MCHC 30.6 L (32.0-36.0) g/dL RDW Coeff of Nadine 21.7 H (11.0-15.0) % Plt Count 297 (150-400) 10^3/uL Immature Gran % (Auto) 0.2 (0.0-4.9) % Neut % (Auto) 88.9 H (41-71) % Lymph % (Auto) 4.3 L (24-44) % [place] % (Auto) 6.1 (0-10) % Eos % (Auto) 0.3 (0-6) % Baso % (Auto) 0.2 (0-1) % Neut # (Auto) 10.63 H (1.80-8.00) x10^3/uL Lymph # (Auto) 0.51 L (0.60-5.00) 10^3/uL [place] # (Auto) 0.73 (0.00-1.50) 10^3/uL Eos # (Auto) 0.03 (0.00-1.50) 10^3/uL Baso # (Auto) 0.02 (0.00-0.50) 10^3/uL Immature Gran # (Auto) 0.02 (0.00-0.49) 10^3/uL PT (9.7-12.3) SEC INR (0.92-1.18) Sodium 138 (136-145) mEq/L Potassium 3.8 (3.5-5.0) mEq/L Chloride 102 (98-106) mEq/L Carbon Dioxide 29 (21-32) mmol/L BUN 14 (7-18) mg/dL Creatinine 0.8 (0.6-1.0) mg/dL Est Cr Clr Drug Dosing TNP Estimated GFR (MDRD) > 60 (>=60) mL/min Glucose 115 H (75-99) mg/dL Calcium 8.7 (8.4-10.1) mg/dL Total Bilirubin 0.5 (0.0-1.0) mg/dL AST 18 (15-37) U/L ALT 21 (12-78) U/L Alkaline Phosphatase 110 (46-116) U/L C-Reactive Protein 6.2 H (0.2-0.8) mg/dL NT-Pro-B Natriuret Pep 983 (0-1000) pg/mL Total Protein 7.0 (6.4-8.2) g/dL Albumin 3.4 (3.4-5.0) g/dL Urine Color Yellow (YELLOW) Urine Appearance Clear (CLEAR) Urine pH 5.5 (4.5-8.0) Ur Specific [place] 1.020 (1.003-1.020) Urine Protein Negative (NEGATIVE) mg/dL Urine Glucose (UA) Negative (NEGATIVE) mg/dL Urine Ketones Negative (NEGATIVE) mg/dL Urine Occult Blood Trace-intact H (NEGATIVE) Urine Nitrite Negative (NEGATIVE) Urine Bilirubin Negative (NEGATIVE) Urine Urobilinogen 0.2 (0.2-1.0) EU/dL Ur Leukocyte Esterase Trace H (NEGATIVE) Urine RBC 0-5 (0-5) /HPF Urine WBC 0-5 (0-5) /HPF Urinalysis Comment 09/20/21 09/21/21 09/21/21 Range/Units 12:40 07:23 07:23 WBC 11.2 H (4.0-11.0) 10^3/uL RBC 4.49 (4.00-5.50) x10^6/uL Hgb 10.6 L (12.0-16.0) g/dL Hct 34.5 L (37.0-47.0) % MCV 76.8 L (83.0-97.0) fL MCH 23.6 L (27.0-32.0) pg MCHC 30.7 L (32.0-36.0) g/dL RDW Coeff of Nadine 21.7 H (11.0-15.0) % Plt Count 232 (150-400) 10^3/uL Immature Gran % (Auto) 0.4 (0.0-4.9) % Neut % (Auto) 85.0 H (41-71) % Lymph % (Auto) 6.6 L (24-44) % [place] % (Auto) 6.9 (0-10) % Eos % (Auto) 0.8 (0-6) % Baso % (Auto) 0.3 (0-1) % Neut # (Auto) 9.56 H (1.80-8.00) x10^3/uL Lymph # (Auto) 0.74 (0.60-5.00) 10^3/uL [place] # (Auto) 0.78 (0.00-1.50) 10^3/uL Eos # (Auto) 0.09 (0.00-1.50) 10^3/uL Baso # (Auto) 0.03 (0.00-0.50) 10^3/uL Immature Gran # (Auto) 0.04 (0.00-0.49) 10^3/uL PT 11.6 (9.7-12.3) SEC INR 1.06 (0.92-1.18) Sodium 138 (136-145) mEq/L Potassium 3.7 (3.5-5.0) mEq/L Chloride 104 (98-106) mEq/L Carbon Dioxide 31 (21-32) mmol/L BUN 15 (7-18) mg/dL Creatinine 0.7 (0.6-1.0) mg/dL Est Cr Clr Drug Dosing 43.21 Estimated GFR (MDRD) > 60 (>=60) mL/min Glucose 115 H (75-99) mg/dL Calcium 8.5 (8.4-10.1) mg/dL Total Bilirubin (0.0-1.0) mg/dL AST (15-37) U/L ALT (12-78) U/L Alkaline Phosphatase (46-116) U/L C-Reactive Protein 20.7 H (0.2-0.8) mg/dL NT-Pro-B Natriuret Pep (0-1000) pg/mL Total Protein (6.4-8.2) g/dL Albumin (3.4-5.0) g/dL Urine Color (YELLOW) Urine Appearance (CLEAR) Urine pH (4.5-8.0) Ur Specific [place] (1.003-1.020) Urine Protein (NEGATIVE) mg/dL Urine Glucose (UA) (NEGATIVE) mg/dL Urine Ketones (NEGATIVE) mg/dL Urine Occult Blood (NEGATIVE) Urine Nitrite (NEGATIVE) Urine Bilirubin (NEGATIVE) Urine Urobilinogen (0.2-1.0) EU/dL Ur Leukocyte Esterase (NEGATIVE) Urine RBC (0-5) /HPF Urine WBC (0-5) /HPF Urinalysis Comment Result Diagrams: 09/21/21 07:23 09/21/21 07:23 Sepsis Event Note - Evaluation Sepsis Screening Result: No Definite Risk - Focused Exam Vital Signs: Vital Signs Temp Temp Pulse Pulse Resp BP BP 09/21/21 07:57 97.6 F 105 H 16 104/46 L 09/21/21 07:51 103 H 104/56 L 09/21/21 04:00 98.9 F 93 18 88/46 L 09/20/21 23:48 99.5 F 92 16 91/53 L 09/20/21 23:12 99.5 F Pulse Ox 09/21/21 07:57 93 L 09/21/21 07:51 09/21/21 04:00 92 L 09/20/21 23:48 90 L 09/20/21 23:12 - Problem List & Annotations (1) Back pain SNOMED Code(s): 494862251 Code(s): M54.9 - DORSALGIA, UNSPECIFIED Status: Acute Priority: High Current Visit: Yes Qualifiers: Back pain location: thoracic back pain Chronicity: unspecified Back pain laterality: bilateral Qualified Code(s): M54.6 - Pain in thoracic spine (2) COPD (chronic obstructive pulmonary disease) SNOMED Code(s): 64986261 Code(s): J44.9 - CHRONIC OBSTRUCTIVE PULMONARY DISEASE, UNSPECIFIED Status: Acute Priority: High Current Visit: Yes Qualifiers: COPD type: COPD with acute lower respiratory infection Qualified Code(s): J44.0 - Chronic obstructive pulmonary disease with (acute) lower respiratory infection (3) Pneumonia SNOMED Code(s): 277047821 Code(s): J18.9 - PNEUMONIA, UNSPECIFIED ORGANISM Status: Acute Priority: High Current Visit: Yes Qualifiers: Pneumonia type: due to unspecified organism Laterality: bilateral Lung location: upper lobe of lung Qualified Code(s): J18.9 - Pneumonia, unspecified organism - Problem List Review Problem List Initiated/Reviewed/Updated: Yes - My Orders Last 24 Hours: My Active Orders 09/20/21 12:24 Chest 2V [CR] Stat 09/21/21 08:00 Chest 2V [CR] Routine Thoracic Spine wo Cont [CT] Routine 09/21/21 10:51 Acetaminophen/HYDROcodone [Viola 325-5 MG] 1 - 2 tab PO Q6H PRN 09/21/21 10:53 Consult to Physical Therapy [PT Evaluation and Treatment] [CONS] Routine 09/21/21 11:00 methylPREDNISolone Sod Succ [Solu-MEDROL] 62.5 mg IVPUSH Q12H - Assessment Assessment:: Right mid and lower lobe pneumonia, left anterior pneumonia Thoracic and Lumbar compression fractures COPD with infection - Plan Plan:: Ongoing back pain, will increase Viola to 2 tabs as needed. Did have history of recent GI bleed so will cautiously start IV Solu Medrol for pneumonia and for new compression fractures noted on CT to T12 and L1. IV Protonix. Labs note stable WBC today of 11.2. Hemoglobin 10.6. CRP did increase to 20.7. continue IV antibiotics.
[2021-09-21] MEDS: methylPREDNISolone Sodium Succinate 125 MG/2 ML SDV IVPUSH SCH ×2 (12:05→22:20)
[2021-09-21] MEDS: Pantoprazole 40 MG Vial IVPUSH SCH (12:05)
[2021-09-21] MEDS: Acetaminophen/HYDROcodone 325-5 MG Tab PO PRN (12:06)
[2021-09-21] MEDS: cefTRIAXone 1 GM Vial IVPUSH SCH (16:41)
[2021-09-22 07:19] LABS: CHLORIDE,CL 105 mEq/L (98-106); SODIUM,NA 140 mEq/L (136-145)
[2021-09-22] MEDS: Acetaminophen/HYDROcodone 325-5 MG Tab PO PRN ×2 (07:47→18:24)
[2021-09-22] MEDS: Diltiazem 120 MG Cap.CD PO SCH (07:48)
[2021-09-22] MEDS: Metoprolol Tartrate 50 MG Tab PO SCH ×2 (07:48→19:30)
[2021-09-22] MEDS: Doxycycline 100 MG Tab PO SCH ×2 (07:48→19:30)
--- NOTE | 2021-09-22 10:14 | PCM.PN ---
- General Info Date of Service: 09/22/21 Admission Dx/Problem (Free Text): Pneumonia Back Pain Subjective Update: 09-21-21: Patient continues to have severe back pain. States considerable with movement. Does not feel the 1 pain pill or the morphine do much for her. Admits that takes a pain med at home so questions if only one will work for acute problems. Has chronic cough, does not feel it is changed from her norm. Did spike a high fever of 102 during the night. Started oxygen on her last evening. Denies any increased shortness of breath. No nausea/vomiting or diarrhea. No burning with urination. 09-22-21: Patient reports back pain is improved today and states this has been well controlled with medication. Continues to have back pain with movement, however reports that she has very little pain when sitting still. Continues to have occasional cough but frequency has decreased. Afebrile for the past 24 hours. Has remained on 2 LPM oxygen with sats of 94%. Denies SOB or exertional dyspnea. Has been able to ambulate to the bathroom and able to get to the restroom on her own. Denies any nausea, vomiting, diarrhea or abdominal complaints. Functional Status: Reports: Pain Controlled - Review of Systems General: Denies: Fever, Weakness, Fatigue, Chills HEENT: Reports: No Symptoms Pulmonary: Reports: Cough (improved). Denies: Shortness of Breath, Sputum Cardiovascular: Denies: Chest Pain, Palpitations, Dyspnea on Exertion Gastrointestinal: Denies: Abdominal Pain, Diarrhea, Nausea, Vomiting Genitourinary: Denies: Dysuria, Frequency, Burning Musculoskeletal: Reports: Back Pain (improved) Skin: Reports: No Symptoms Neurological: Denies: Confusion, Dizziness, Headache Psychiatric: Reports: No Symptoms - Patient Data Vitals - Most Recent: Last Vital Signs Temp 98 F 09/22/21 07:59 Pulse 97 09/22/21 07:59 Resp 18 09/22/21 07:59 BP 155/82 H 09/22/21 07:48 Pulse Ox 97 09/22/21 07:59 Weight - Most Recent: 104 lb 9.6 oz Lab Results Last 24 Hours: Laboratory Results - last 24 hr 09/22/21 09/22/21 Range/Units 06:55 06:55 WBC 6.7 (4.0-11.0) 10^3/uL RBC 4.51 (4.00-5.50) x10^6/uL Hgb 10.6 L (12.0-16.0) g/dL Hct 34.8 L (37.0-47.0) % MCV 77.2 L (83.0-97.0) fL MCH 23.5 L (27.0-32.0) pg MCHC 30.5 L (32.0-36.0) g/dL RDW Coeff of Nadine 21.8 H (11.0-15.0) % Plt Count 267 (150-400) 10^3/uL Immature Gran % (Auto) 0.6 (0.0-4.9) % Neut % (Auto) 92.0 H (41-71) % Lymph % (Auto) 3.1 L (24-44) % [place] % (Auto) 4.2 (0-10) % Eos % (Auto) 0.0 (0-6) % Baso % (Auto) 0.1 (0-1) % Neut # (Auto) 6.16 (1.80-8.00) x10^3/uL Lymph # (Auto) 0.21 L (0.60-5.00) 10^3/uL [place] # (Auto) 0.28 (0.00-1.50) 10^3/uL Eos # (Auto) 0.00 (0.00-1.50) 10^3/uL Baso # (Auto) 0.01 (0.00-0.50) 10^3/uL Immature Gran # (Auto) 0.04 (0.00-0.49) 10^3/uL Sodium 140 (136-145) mEq/L Potassium 4.0 (3.5-5.0) mEq/L Chloride 105 (98-106) mEq/L Carbon Dioxide 32 (21-32) mmol/L BUN 17 (7-18) mg/dL Creatinine 0.7 (0.6-1.0) mg/dL Est Cr Clr Drug Dosing 43.21 mL/min Estimated GFR (MDRD) > 60 (>=60) mL/min Glucose 241 H D (75-99) mg/dL Calcium 8.8 (8.4-10.1) mg/dL C-Reactive Protein 20.9 H (0.2-0.8) mg/dL David Results Last 24 Hours: Microbiology 09/20/21 19:32 Aerobic Blood Culture - Preliminary Blood NO GROWTH AFTER 1 DAY Anaerobic Blood Culture - Preliminary NO GROWTH AFTER 1 DAY Med Orders - Current: Current Medications Acetaminophen (Acetaminophen 325 Mg Tab) 650 mg PO Q4H PRN PRN Reason: Pain (Mild 1-3)/fever Last Admin: 09/20/21 19:29 Dose: 325 mg Documented by: Hydrocodone Bitart/Acetaminophen (Acetaminophen/Hydrocodone 325-5 Mg Tab) 1 - 2 tab PO Q6H PRN PRN Reason: Pain Last Admin: 09/22/21 07:47 Dose: 2 tab Documented by: Albuterol (Albuterol 0.083% 2.5 Mg/3 Ml Neb Soln) 2.5 mg NEB Q2H PRN PRN Reason: Shortness Of Breath/wheezing Albuterol/Ipratropium (Albuterol/Ipratropium 3.0-0.5 Mg/3 Ml Neb Soln) 3 ml NEB Q4H PRN PRN Reason: Shortness Of Breath/wheezing Last Admin: 09/21/21 19:18 Dose: 3 ml Documented by: Ceftriaxone Sodium (Ceftriaxone 1 Gm Vial) 1 gm IVPUSH Q24H [facility] Last Admin: 09/21/21 16:41 Dose: 1 gm Documented by: Diltiazem HCl (Diltiazem 120 Mg Cap.Cd) 120 mg PO DAILY [facility] Last Admin: 09/22/21 07:48 Dose: 120 mg Documented by: Doxycycline Monohydrate (Doxycycline 100 Mg Tab) 100 mg PO BID [facility] Last Admin: 09/22/21 07:48 Dose: 100 mg Documented by: Methylprednisolone Sodium Succinate (Methylprednisolone Sodium Succinate 125 Mg/2 Ml Sdv) 62.5 mg IVPUSH Q12H [facility] Last Admin: 09/21/21 22:20 Dose: 62.5 mg Documented by: Metoprolol Tartrate (Metoprolol Tartrate 50 Mg Tab) 50 mg PO BID [facility] Last Admin: 09/22/21 07:48 Dose: 50 mg Documented by: Morphine Sulfate (Morphine 2 Mg/Ml Syringe) 2 mg IVPUSH Q2H PRN PRN Reason: Pain (severe 7-10) Last Admin: 09/21/21 07:52 Dose: 2 mg Documented by: Ondansetron HCl (Ondansetron 4 Mg/2 Ml Sdv) 4 mg IV Q4H PRN PRN Reason: Nausea/Vomiting Pantoprazole Sodium (Pantoprazole 40 Mg Vial) 40 mg IVPUSH Q24H [facility] Last Admin: 09/21/21 12:05 Dose: 40 mg Documented by: Sodium Chloride (Sodium Chloride 0.9% 10 Ml Syringe) 10 ml FLUSH ASDIRECTED PRN PRN Reason: Keep Vein Open Discontinued Medications Hydrocodone Bitart/Acetaminophen (Acetaminophen/Hydrocodone 325-5 Mg Tab) 1 tab PO Q6H PRN PRN Reason: Pain Last Admin: 09/20/21 19:30 Dose: 1 tab Documented by: Ibuprofen (Ibuprofen 200 Mg Tab) 400 mg PO ONETIME ONE Stop: 09/20/21 21:44 Last Admin: 09/20/21 22:12 Dose: 400 mg Documented by: Morphine Sulfate (Morphine 2 Mg/Ml Syringe) 2 mg IVPUSH ONETIME ONE Stop: 09/20/21 12:59 Last Admin: 09/20/21 13:10 Dose: 2 mg Documented by: - Exam Quality Assessment: Supplemental Oxygen General: Alert, Oriented HEENT: Pupils Equal, Mucous Membr. Moist/[place] Neck: Supple, Trachea Midline Lungs: Crackles (bilateral bases) Cardiovascular: Regular Rate, Regular Rhythm GI/Abdominal Exam: Normal Bowel Sounds, Soft, Non-Tender (Female) Exam: Deferred Back Exam: Vertebral Tenderness Extremities: Normal Inspection, No Pedal Edema Skin: Warm, Dry, Intact Neurological: No New Focal Deficit Psy/Mental Status: Alert, Normal Affect, Normal Mood - Patient Data Lab Results Last 24 hrs: Laboratory Results - last 24 hr 09/22/21 09/22/21 Range/Units 06:55 06:55 WBC 6.7 (4.0-11.0) 10^3/uL RBC 4.51 (4.00-5.50) x10^6/uL Hgb 10.6 L (12.0-16.0) g/dL Hct 34.8 L (37.0-47.0) % MCV 77.2 L (83.0-97.0) fL MCH 23.5 L (27.0-32.0) pg MCHC 30.5 L (32.0-36.0) g/dL RDW Coeff of Nadine 21.8 H (11.0-15.0) % Plt Count 267 (150-400) 10^3/uL Immature Gran % (Auto) 0.6 (0.0-4.9) % Neut % (Auto) 92.0 H (41-71) % Lymph % (Auto) 3.1 L (24-44) % Scott % (Auto) 4.2 (0-10) % Eos % (Auto) 0.0 (0-6) % Baso % (Auto) 0.1 (0-1) % Neut # (Auto) 6.16 (1.80-8.00) x10^3/uL Lymph # (Auto) 0.21 L (0.60-5.00) 10^3/uL Scott # (Auto) 0.28 (0.00-1.50) 10^3/uL Eos # (Auto) 0.00 (0.00-1.50) 10^3/uL Baso # (Auto) 0.01 (0.00-0.50) 10^3/uL Immature Gran # (Auto) 0.04 (0.00-0.49) 10^3/uL Sodium 140 (136-145) mEq/L Potassium 4.0 (3.5-5.0) mEq/L Chloride 105 (98-106) mEq/L Carbon Dioxide 32 (21-32) mmol/L BUN 17 (7-18) mg/dL Creatinine 0.7 (0.6-1.0) mg/dL Est Cr Clr Drug Dosing 43.21 mL/min Estimated GFR (MDRD) > 60 (>=60) mL/min Glucose 241 H D (75-99) mg/dL Calcium 8.8 (8.4-10.1) mg/dL C-Reactive Protein 20.9 H (0.2-0.8) mg/dL Result Diagrams: 09/22/21 06:55 09/22/21 06:55 David Results Last 24 hrs: Microbiology 09/20/21 19:32 Aerobic Blood Culture - Preliminary Blood NO GROWTH AFTER 1 DAY Anaerobic Blood Culture - Preliminary NO GROWTH AFTER 1 DAY Sepsis Event Note - Evaluation Sepsis Screening Result: No Definite Risk - Focused Exam Vital Signs: Vital Signs Temp Pulse Pulse Resp BP BP Pulse Ox 09/22/21 07:59 98 F 97 18 97 09/22/21 07:48 97 155/82 H 09/22/21 03:58 97.6 F 92 16 115/68 94 L 09/22/21 00:00 98.2 F 88 16 128/65 94 L - Problem List & Annotations (1) Pneumonia SNOMED Code(s): 504224812 Code(s): J18.9 - PNEUMONIA, UNSPECIFIED ORGANISM Status: Acute Priority: High Current Visit: Yes Qualifiers: Pneumonia type: due to unspecified organism Laterality: bilateral Lung location: upper lobe of lung Qualified Code(s): J18.9 - Pneumonia, unspecified organism (2) Back pain SNOMED Code(s): 686201544 Code(s): M54.9 - DORSALGIA, UNSPECIFIED Status: Acute Priority: High Current Visit: Yes Qualifiers: Back pain location: thoracic back pain Chronicity: unspecified Back pain laterality: bilateral Qualified Code(s): M54.6 - Pain in thoracic spine - Problem List Review Problem List Initiated/Reviewed/Updated: Yes - My Orders Last 24 Hours: My Active Orders 09/23/21 05:11 BASIC METABOLIC PANEL,BMP [CHEM] AM C-REACTIVE PROTEIN [CHEM] AM 09/23/21 07:00 CBC WITH AUTO DIFF [HEME] DAILY 09/24/21 07:00 CBC WITH AUTO DIFF [HEME] DAILY - Assessment Assessment:: Right mid and lower lobe pneumonia, left anterior pneumonia Thoracic and Lumbar compression fractures COPD with infection - Plan Plan:: 09-21-21: Ongoing back pain, will increase Spicewood to 2 tabs as needed. Did have history of recent GI bleed so will cautiously start IV Solu Medrol for pneumonia and for new compression fractures noted on CT to T12 and L1. IV Protonix. Labs note stable WBC today of 11.2. Hemoglobin 10.6. CRP did increase to 20.7. continue IV antibiotics. 09-22-21: Back pain improving, will continue Spicewood 2 tablets as needed. Solu Medrol appears to be effective for both the pneumonia and pain associated with the compression fractures and will continue. Blood glucose elevated 241 likely from steroid use and will continue to monitor. Labs improving as WBC decreased to 6.7. CRP up slightly to 20.9. Continue Protonix due to history of GI bleed. Continue antibiotics for pneumonia.
[2021-09-22] MEDS: methylPREDNISolone Sodium Succinate 125 MG/2 ML SDV IVPUSH SCH ×2 (13:25→22:59)
[2021-09-22] MEDS: Pantoprazole 40 MG Vial IVPUSH SCH (13:25)
[2021-09-22] MEDS: cefTRIAXone 1 GM Vial IVPUSH SCH (14:04)
[2021-09-22] MEDS: Albuterol/Ipratropium 3.0-0.5 MG/3 ML Neb Soln NEB PRN (18:24)
[2021-09-23 07:31] LABS: CHLORIDE,CL 105 mEq/L (98-106); SODIUM,NA 141 mEq/L (136-145)
[2021-09-23] MEDS: Doxycycline 100 MG Tab PO SCH ×2 (07:54→20:30)
[2021-09-23] MEDS: Metoprolol Tartrate 50 MG Tab PO SCH ×2 (07:54→20:30)
[2021-09-23] MEDS: Diltiazem 120 MG Cap.CD PO SCH (07:54)
--- NOTE | 2021-09-23 09:04 | PCM.PN ---
- General Info Date of Service: 09/23/21 Admission Dx/Problem (Free Text): Pneumonia Back Pain Subjective Update: 09-21-21: Patient continues to have severe back pain. States considerable with movement. Does not feel the 1 pain pill or the morphine do much for her. Admits that takes a pain med at home so questions if only one will work for acute problems. Has chronic cough, does not feel it is changed from her norm. Did spike a high fever of 102 during the night. Started oxygen on her last evening. Denies any increased shortness of breath. No nausea/vomiting or diarrhea. No burning with urination. 09-22-21: Patient reports back pain is improved today and states this has been well controlled with medication. Continues to have back pain with movement, however reports that she has very little pain when sitting still. Continues to have occasional cough but frequency has decreased. Afebrile for the past 24 hours. Has remained on 2 LPM oxygen with sats of 94%. Denies SOB or exertional dyspnea. Has been able to ambulate to the bathroom and able to get to the restroom on her own. Denies any nausea, vomiting, diarrhea or abdominal complaints. 09-23-21: Mrs. Stanley is awake, alert, and oriented this morning sitting up in bed. States pain is well controlled. Continues to have pain with movement. Has been able to get up, stand, and walk to the bathroom and does report pain when moving. Occasional cough and remains on 2 LPM of oxygen via NC. Has had no fever or chills. Reports that she had a bowel movement this morning. States she feels at her baseline with the exception of the thoracic back pain. Patient feels like she could return home, however inclement weather will prevent discharge home today. Functional Status: Reports: Pain Controlled, Tolerating Diet, Ambulating, Urinating - Review of Systems General: Reports: Appetite (good). Denies: Fever, Weakness HEENT: Denies: Headaches, Sinus Congestion, Sore Throat Pulmonary: Reports: Cough (occasional). Denies: Shortness of Breath, Sputum Cardiovascular: Denies: Chest Pain, Palpitations, Dyspnea on Exertion, Lightheadedness Gastrointestinal: Denies: Abdominal Pain, Constipation, Diarrhea, Nausea, Vomiting Genitourinary: Denies: Dysuria, Frequency, Burning Musculoskeletal: Reports: Back Pain (mid back) Skin: Reports: No Symptoms Neurological: Denies: Confusion, Dizziness, Headache Psychiatric: Reports: No Symptoms - Patient Data Vitals - Most Recent: Last Vital Signs Temp 99.4 F 09/23/21 07:53 Pulse 87 09/23/21 07:54 Resp 20 09/23/21 07:53 BP 139/87 09/23/21 07:54 Pulse Ox 95 09/23/21 07:53 Weight - Most Recent: 104 lb 9.6 oz Lab Results Last 24 Hours: Laboratory Results - last 24 hr 09/23/21 09/23/21 Range/Units 05:11 07:00 WBC 7.3 (4.0-11.0) 10^3/uL RBC 4.15 (4.00-5.50) x10^6/uL Hgb 10.0 L (12.0-16.0) g/dL Hct 31.9 L (37.0-47.0) % MCV 76.9 L (83.0-97.0) fL MCH 24.1 L (27.0-32.0) pg MCHC 31.3 L (32.0-36.0) g/dL RDW Coeff of Nadine 21.4 H (11.0-15.0) % Plt Count 267 (150-400) 10^3/uL Add Manual Diff Yes Neutrophils % (Manual) 93 H (35-85) % Lymphocytes % (Manual) 5 L (21-55) % Monocytes % (Manual) 2 (2-12) % Absolute Neutrophils 6.79 (1.80-7.00) 10^3/uL Lymphocytes # (Manual) 0.37 L (1.00-4.80) 10^3/uL Monocytes # (Manual) 0.15 (0.00-0.80) 10^3/uL Sodium 141 (136-145) mEq/L Potassium 3.9 (3.5-5.0) mEq/L Chloride 105 (98-106) mEq/L Carbon Dioxide 32 (21-32) mmol/L BUN 22 H (7-18) mg/dL Creatinine 0.6 (0.6-1.0) mg/dL Est Cr Clr Drug Dosing 50.41 mL/min Estimated GFR (MDRD) > 60 (>=60) mL/min Glucose 200 H (75-99) mg/dL Calcium 8.8 (8.4-10.1) mg/dL C-Reactive Protein 7.5 H (0.2-0.8) mg/dL David Results Last 24 Hours: Microbiology 09/20/21 19:32 Aerobic Blood Culture - Preliminary Blood NO GROWTH AFTER 2 DAYS Anaerobic Blood Culture - Preliminary NO GROWTH AFTER 2 DAYS Med Orders - Current: Current Medications Acetaminophen (Acetaminophen 325 Mg Tab) 650 mg PO Q4H PRN PRN Reason: Pain (Mild 1-3)/fever Last Admin: 09/20/21 19:29 Dose: 325 mg Documented by: Hydrocodone Bitart/Acetaminophen (Acetaminophen/Hydrocodone 325-5 Mg Tab) 1 - 2 tab PO Q6H PRN PRN Reason: Pain Last Admin: 09/22/21 18:24 Dose: 2 tab Documented by: Albuterol (Albuterol 0.083% 2.5 Mg/3 Ml Neb Soln) 2.5 mg NEB Q2H PRN PRN Reason: Shortness Of Breath/wheezing Albuterol/Ipratropium (Albuterol/Ipratropium 3.0-0.5 Mg/3 Ml Neb Soln) 3 ml NEB Q4H PRN PRN Reason: Shortness Of Breath/wheezing Last Admin: 09/22/21 18:24 Dose: 3 ml Documented by: Ceftriaxone Sodium (Ceftriaxone 1 Gm Vial) 1 gm IVPUSH Q24H [facility] Last Admin: 09/22/21 14:04 Dose: 1 gm Documented by: Diltiazem HCl (Diltiazem 120 Mg Cap.Cd) 120 mg PO DAILY [facility] Last Admin: 09/23/21 07:54 Dose: 120 mg Documented by: Doxycycline Monohydrate (Doxycycline 100 Mg Tab) 100 mg PO BID [facility] Last Admin: 09/23/21 07:54 Dose: 100 mg Documented by: Methylprednisolone Sodium Succinate (Methylprednisolone Sodium Succinate 125 Mg/2 Ml Sdv) 62.5 mg IVPUSH Q12H [facility] Last Admin: 09/22/21 22:59 Dose: 62.5 mg Documented by: Metoprolol Tartrate (Metoprolol Tartrate 50 Mg Tab) 50 mg PO BID [facility] Last Admin: 09/23/21 07:54 Dose: 50 mg Documented by: Morphine Sulfate (Morphine 2 Mg/Ml Syringe) 2 mg IVPUSH Q2H PRN PRN Reason: Pain (severe 7-10) Last Admin: 09/21/21 07:52 Dose: 2 mg Documented by: Ondansetron HCl (Ondansetron 4 Mg/2 Ml Sdv) 4 mg IV Q4H PRN PRN Reason: Nausea/Vomiting Pantoprazole Sodium (Pantoprazole 40 Mg Vial) 40 mg IVPUSH Q24H [facility] Last Admin: 09/22/21 13:25 Dose: 40 mg Documented by: Sodium Chloride (Sodium Chloride 0.9% 10 Ml Syringe) 10 ml FLUSH ASDIRECTED PRN PRN Reason: Keep Vein Open Discontinued Medications Hydrocodone Bitart/Acetaminophen (Acetaminophen/Hydrocodone 325-5 Mg Tab) 1 tab PO Q6H PRN PRN Reason: Pain Last Admin: 09/20/21 19:30 Dose: 1 tab Documented by: Ibuprofen (Ibuprofen 200 Mg Tab) 400 mg PO ONETIME ONE Stop: 09/20/21 21:44 Last Admin: 09/20/21 22:12 Dose: 400 mg Documented by: Morphine Sulfate (Morphine 2 Mg/Ml Syringe) 2 mg IVPUSH ONETIME ONE Stop: 09/20/21 12:59 Last Admin: 09/20/21 13:10 Dose: 2 mg Documented by: - Exam Quality Assessment: Supplemental Oxygen (2 LPM NC) General: Alert, Oriented, Cooperative, No Acute Distress HEENT: Pupils Equal, Mucous Membr. Moist/[place] Neck: Supple, Trachea Midline, No JVD Lungs: Clear to Auscultation, Normal Respiratory Effort (u), Other (upper airway noise) Cardiovascular: Regular Rate, Regular Rhythm. No: Murmurs, Gallops, Rubs GI/Abdominal Exam: Normal Bowel Sounds, Soft, Non-Tender, No Distention (Female) Exam: Deferred Back Exam: Paraspinal Tenderness (tenderness to the ), Vertebral Tenderness Extremities: Normal Inspection, Normal Range of Motion, Non-Tender, No Pedal Edema Skin: Warm, Dry, Intact Neurological: No New Focal Deficit Psy/Mental Status: Alert, Normal Affect, Normal Mood - Patient Data Lab Results Last 24 hrs: Laboratory Results - last 24 hr 09/23/21 09/23/21 Range/Units 05:11 07:00 WBC 7.3 (4.0-11.0) 10^3/uL RBC 4.15 (4.00-5.50) x10^6/uL Hgb 10.0 L (12.0-16.0) g/dL Hct 31.9 L (37.0-47.0) % MCV 76.9 L (83.0-97.0) fL MCH 24.1 L (27.0-32.0) pg MCHC 31.3 L (32.0-36.0) g/dL RDW Coeff of Nadine 21.4 H (11.0-15.0) % Plt Count 267 (150-400) 10^3/uL Add Manual Diff Yes Neutrophils % (Manual) 93 H (35-85) % Lymphocytes % (Manual) 5 L (21-55) % Monocytes % (Manual) 2 (2-12) % Absolute Neutrophils 6.79 (1.80-7.00) 10^3/uL Lymphocytes # (Manual) 0.37 L (1.00-4.80) 10^3/uL Monocytes # (Manual) 0.15 (0.00-0.80) 10^3/uL Sodium 141 (136-145) mEq/L Potassium 3.9 (3.5-5.0) mEq/L Chloride 105 (98-106) mEq/L Carbon Dioxide 32 (21-32) mmol/L BUN 22 H (7-18) mg/dL Creatinine 0.6 (0.6-1.0) mg/dL Est Cr Clr Drug Dosing 50.41 mL/min Estimated GFR (MDRD) > 60 (>=60) mL/min Glucose 200 H (75-99) mg/dL Calcium 8.8 (8.4-10.1) mg/dL C-Reactive Protein 7.5 H (0.2-0.8) mg/dL Result Diagrams: 09/23/21 07:00 09/23/21 05:11 David Results Last 24 hrs: Microbiology 09/20/21 19:32 Aerobic Blood Culture - Preliminary Blood NO GROWTH AFTER 2 DAYS Anaerobic Blood Culture - Preliminary NO GROWTH AFTER 2 DAYS Sepsis Event Note - Evaluation Sepsis Screening Result: No Definite Risk - Focused Exam Vital Signs: Vital Signs Temp Pulse Pulse Resp BP BP Pulse Ox 09/23/21 07:54 87 139/87 09/23/21 07:53 99.4 F 87 20 139/87 95 09/23/21 04:00 98.9 F 84 16 118/66 93 L 09/23/21 00:00 98.9 F 94 16 141/63 H 93 L 09/22/21 23:55 Pulse Ox 09/23/21 07:54 09/23/21 07:53 09/23/21 04:00 09/23/21 00:00 09/22/21 23:55 93 L - Problem List & Annotations (1) Pneumonia SNOMED Code(s): 793579007 Code(s): J18.9 - PNEUMONIA, UNSPECIFIED ORGANISM Status: Acute Priority: High Current Visit: Yes Qualifiers: Pneumonia type: due to unspecified organism Laterality: bilateral Lung location: upper lobe of lung Qualified Code(s): J18.9 - Pneumonia, unspecified organism (2) Back pain SNOMED Code(s): 593202474 Code(s): M54.9 - DORSALGIA, UNSPECIFIED Status: Acute Priority: High Current Visit: Yes Qualifiers: Back pain location: thoracic back pain Chronicity: unspecified Back pain laterality: bilateral Qualified Code(s): M54.6 - Pain in thoracic spine - Problem List Review Problem List Initiated/Reviewed/Updated: Yes - My Orders Last 24 Hours: My Active Orders 09/24/21 07:00 CBC WITH AUTO DIFF [HEME] DAILY - Assessment Assessment:: Right mid and lower lobe pneumonia, left anterior pneumonia Thoracic and Lumbar compression fractures COPD with infection - Plan Plan:: 09-21-21: Ongoing back pain, will increase Stephenson to 2 tabs as needed. Did have history of recent GI bleed so will cautiously start IV Solu Medrol for pneumonia and for new compression fractures noted on CT to T12 and L1. IV Protonix. Labs note stable WBC today of 11.2. Hemoglobin 10.6. CRP did increase to 20.7. continue IV antibiotics. 09-22-21: Back pain improving, will continue Stephenson 2 tablets as needed. Solu Medrol appears to be effective for both the pneumonia and pain associated with the compression fractures and will continue. Blood glucose elevated 241 likely from steroid use and will continue to monitor. Labs improving as WBC decreased to 6.7. CRP up slightly to 20.9. Continue Protonix due to history of GI bleed. Continue antibiotics for pneumonia. 09-23-21: No back pain when remains still or sitting, pain with movement but improved. Continue the Stephenson 2 tablets as needed for pain. Will continue Solu Medrol as it is showing to be effective for the pneumonia and back pain. Labs overall improved today. WBC 7.3, CRP down to 7.5, creatinine 0.6 with BUN 22. Continue Rocephin and doxycycline for pneumonia coverage. Due to inclement weather unable to discharge the patient today. Plan to discharge home tomorrow.
[2021-09-23] MEDS: methylPREDNISolone Sodium Succinate 125 MG/2 ML SDV IVPUSH SCH (11:13)
[2021-09-23] MEDS: Pantoprazole 40 MG Vial IVPUSH SCH (11:13)
[2021-09-23] MEDS: cefTRIAXone 1 GM Vial IVPUSH SCH (15:41)
[2021-09-23] MEDS: Acetaminophen/HYDROcodone 325-5 MG Tab PO PRN ×2 (15:49→20:31)
[2021-09-24] MEDS: methylPREDNISolone Sodium Succinate 125 MG/2 ML SDV IVPUSH SCH ×2 (00:05→10:45)
[2021-09-24] MEDS: Metoprolol Tartrate 50 MG Tab PO SCH (08:06)
[2021-09-24] MEDS: Diltiazem 120 MG Cap.CD PO SCH (08:07)
[2021-09-24] MEDS: Doxycycline 100 MG Tab PO SCH (08:07)
[2021-09-24] MEDS: Pantoprazole 40 MG Vial IVPUSH SCH (11:34)
[2021-09-24 11:52] VITALS: BP 142/62; PULSE 71
[2021-09-24] MEDS ORDERED: cefTRIAXone 1 GM Vial IVPUSH SCH (12:00)
--- NOTE | 2021-09-24 13:15 | PCM.DCSUM1 ---
Discharge Summary - Hospital Course Free Text/Narrative:: Brook was admitted to the hospital 09/20/2021 for R) pneumonia and T12 and L1 compression fracture. She was started on Rocephin and doxycycline, as well as solumedrol. Does have hx of lung CA with right lobectomy, as well as COPD. Initially was requiring 2 L O2. Pain was managed with [place] throughout stay. Labs did improve throughout stay. WBC improved from 11.9 on admit to 4.8 on day of discharge. CRP was 6.2 on admit, did increase up to 20.9, but improved to 7.5 on day of discharge. At time of discharge, patient was feeling much improved. Cough had improved. She was up moving without assistance. O2 was stable at 91-92% on RA. She was anxious to go home. She will be discharged home with doxycycline, to finish out remainder of treatment dose. She is advised to use her [place] as needed for pain relief. She is scheduled to follow up with PCP next week for recheck. - Discharge Data Discharge Date: 09/24/21 Discharge Disposition: Home, Self-Care 01 Condition: Fair - Referral to Home Health Primary Care Physician: Pam Maharaj PA-C - Discharge Diagnosis/Problem(s) (1) COPD (chronic obstructive pulmonary disease) SNOMED Code(s): 79869372 ICD Code: J44.9 - CHRONIC OBSTRUCTIVE PULMONARY DISEASE, UNSPECIFIED Status: Acute Priority: High Qualifiers: COPD type: COPD with acute lower respiratory infection Qualified Code(s): J44.0 - Chronic obstructive pulmonary disease with (acute) lower respiratory infection (2) Pneumonia SNOMED Code(s): 095442044 ICD Code: J18.9 - PNEUMONIA, UNSPECIFIED ORGANISM Status: Acute Priority: High Qualifiers: Pneumonia type: due to unspecified organism Laterality: bilateral Lung location: upper lobe of lung Qualified Code(s): J18.9 - Pneumonia, unspecified organism (3) Compression fracture SNOMED Code(s): 552854823 ICD Code: [id number] - Status: Acute - Patient Summary/Data Consults: Consultations 09/21/21 10:53 Consult to Physical Therapy [PT Evaluation and Treatment] [CONS] Routine - Patient Instructions Diet: Usual Diet as Tolerated Activity: As Tolerated, Cough & Deep Breathe Notify Provider of: Fever, Increased Pain, Nausea and/or Vomiting - Discharge Plan *PRESCRIPTION DRUG MONITORING PROGRAM REVIEWED*: Not Applicable *COPY OF PRESCRIPTION DRUG MONITORING REPORT IN PATIENT RIGOBERTO: Not Applicable Prescriptions/Med Rec: Doxycycline [Vibramycin] 100 mg PO BID 5 Days #10 tablet Home Medications: Home Meds Metoprolol Tartrate [Lopressor] 50 mg PO BID 02/08/15 [History] Multivitamin [Daily Vitamin] 1 each PO BEDTIME 03/12/15 [History] Albuterol/Ipratropium [DuoNeb 3.0-0.5 MG/3 ML] 3 ml NEB QIDRT PRN 11/15/18 [History] Acetaminophen/HYDROcodone [[place] 325-5 MG] 1 tab PO Q6H PRN #30 tablet 11/29/18 [Rx] dilTIAZem HCL [Cartia Xt] 120 mg PO DAILY 08/29/21 [History] Cholecalciferol (Vitamin D3) [Vitamin D3] 2,000 unit PO DAILY 09/04/21 [History] Denosumab [Prolia] 60 mg SUBCUT ASDIRECTED 09/04/21 [History] Doxycycline [Vibramycin] 100 mg PO BID 5 Days #10 tablet 09/24/21 [Rx] Forms: ED Department Discharge Referrals: Pam Maharaj PA-C [Primary Care Provider] - - Discharge Summary/Plan Comment DC Time >30 min.: No Total # of Minutes for Discharge Time: 20 - General Info Date of Service: 09/24/21 Admission Dx/Problem (Free Text: Pneumonia Back Pain Subjective Update: Patient reports feeling much improved. Is anxious to d/c home. VSS on RA. COugh improved. Is getting around without difficulty. Pain well controlled with [place]. Offers no complaints this morning. - Review of Systems General: Reports: No Symptoms HEENT: Reports: No Symptoms Pulmonary: Reports: Shortness of Breath, Cough, Sputum Cardiovascular: Reports: No Symptoms, Dyspnea on Exertion Gastrointestinal: Reports: No Symptoms Musculoskeletal: Reports: No Symptoms Skin: Reports: No Symptoms Neurological: Reports: No Symptoms - Patient Data Vitals - Most Recent: Last Vital Signs Temp 99.6 F 09/24/21 11:50 Pulse 71 09/24/21 11:50 Resp 12 09/24/21 11:50 BP 142/62 H 09/24/21 11:50 Pulse Ox 91 L 09/24/21 11:50 Weight - Most Recent: 104 lb 9.6 oz Lab Results - Last 24 hrs: Laboratory Results - last 24 hr 09/24/21 Range/Units 07:14 WBC 4.8 (4.0-11.0) 10^3/uL RBC 4.46 (4.00-5.50) x10^6/uL Hgb 10.5 L (12.0-16.0) g/dL Hct 34.0 L (37.0-47.0) % MCV 76.2 L (83.0-97.0) fL MCH 23.5 L (27.0-32.0) pg MCHC 30.9 L (32.0-36.0) g/dL RDW Coeff of Nadine 21.5 H (11.0-15.0) % Plt Count 267 (150-400) 10^3/uL Immature Gran % (Auto) 0.4 (0.0-4.9) % Neut % (Auto) 86.8 H (41-71) % Lymph % (Auto) 7.1 L (24-44) % Craig % (Auto) 5.7 (0-10) % Eos % (Auto) 0.0 (0-6) % Baso % (Auto) 0.0 (0-1) % Neut # (Auto) 4.13 (1.80-8.00) x10^3/uL Lymph # (Auto) 0.34 L (0.60-5.00) 10^3/uL Craig # (Auto) 0.27 (0.00-1.50) 10^3/uL Eos # (Auto) 0.00 (0.00-1.50) 10^3/uL Baso # (Auto) 0.00 (0.00-0.50) 10^3/uL Immature Gran # (Auto) 0.02 (0.00-0.49) 10^3/uL [place] Results - Last 24 hrs: Microbiology 09/20/21 19:32 Aerobic Blood Culture - Preliminary Blood NO GROWTH AFTER 3 DAYS Anaerobic Blood Culture - Preliminary NO GROWTH AFTER 3 DAYS Med Orders - Current: Current Medications Acetaminophen (Acetaminophen 325 Mg Tab) 650 mg PO Q4H PRN PRN Reason: Pain (Mild 1-3)/fever Last Admin: 09/20/21 19:29 Dose: 325 mg Documented by: Hydrocodone Bitart/Acetaminophen (Acetaminophen/Hydrocodone 325-5 Mg Tab) 1 - 2 tab PO Q6H PRN PRN Reason: Pain Last Admin: 09/23/21 20:31 Dose: 2 tab Documented by: Albuterol (Albuterol 0.083% 2.5 Mg/3 Ml Neb Soln) 2.5 mg NEB Q2H PRN PRN Reason: Shortness Of Breath/wheezing Albuterol/Ipratropium (Albuterol/Ipratropium 3.0-0.5 Mg/3 Ml Neb Soln) 3 ml NEB Q4H PRN PRN Reason: Shortness Of Breath/wheezing Last Admin: 09/22/21 18:24 Dose: 3 ml Documented by: Ceftriaxone Sodium (Ceftriaxone 1 Gm Vial) 1 gm IVPUSH Q24H [facility] Last Admin: 09/24/21 11:34 Dose: 1 gm Documented by: Diltiazem HCl (Diltiazem 120 Mg Cap.Cd) 120 mg PO DAILY [facility] Last Admin: 09/24/21 08:07 Dose: 120 mg Documented by: Doxycycline Monohydrate (Doxycycline 100 Mg Tab) 100 mg PO BID [facility] Last Admin: 09/24/21 08:07 Dose: 100 mg Documented by: Methylprednisolone Sodium Succinate (Methylprednisolone Sodium Succinate 125 Mg/2 Ml Sdv) 62.5 mg IVPUSH Q12H [facility] Metoprolol Tartrate (Metoprolol Tartrate 50 Mg Tab) 50 mg PO BID [facility] Last Admin: 09/24/21 08:06 Dose: 50 mg Documented by: Morphine Sulfate (Morphine 2 Mg/Ml Syringe) 2 mg IVPUSH Q2H PRN PRN Reason: Pain (severe 7-10) Last Admin: 09/21/21 07:52 Dose: 2 mg Documented by: Ondansetron HCl (Ondansetron 4 Mg/2 Ml Sdv) 4 mg IV Q4H PRN PRN Reason: Nausea/Vomiting Pantoprazole Sodium (Pantoprazole 40 Mg Vial) 40 mg IVPUSH Q24H [facility] Last Admin: 09/24/21 11:34 Dose: 40 mg Documented by: Sodium Chloride (Sodium Chloride 0.9% 10 Ml Syringe) 10 ml FLUSH ASDIRECTED PRN PRN Reason: Keep Vein Open Discontinued Medications Hydrocodone Bitart/Acetaminophen (Acetaminophen/Hydrocodone 325-5 Mg Tab) 1 tab PO Q6H PRN PRN Reason: Pain Last Admin: 09/20/21 19:30 Dose: 1 tab Documented by: Ceftriaxone Sodium (Ceftriaxone 1 Gm Vial) 1 gm IVPUSH Q24H [facility] Last Admin: 09/23/21 15:41 Dose: 1 gm Documented by: Ibuprofen (Ibuprofen 200 Mg Tab) 400 mg PO ONETIME ONE Stop: 09/20/21 21:44 Last Admin: 09/20/21 22:12 Dose: 400 mg Documented by: Methylprednisolone Sodium Succinate (Methylprednisolone Sodium Succinate 125 Mg/2 Ml Sdv) 62.5 mg IVPUSH Q12H [facility] Last Admin: 09/24/21 10:45 Dose: 62.5 mg Documented by: Morphine Sulfate (Morphine 2 Mg/Ml Syringe) 2 mg IVPUSH ONETIME ONE Stop: 09/20/21 12:59 Last Admin: 09/20/21 13:10 Dose: 2 mg Documented by: - Exam Quality Assessment: Denies: Supplemental Oxygen General: Reports: Alert, Oriented, No Acute Distress Neck: Reports: Supple Lungs: Reports: Normal Respiratory Effort, Rhonchi (right upper/mid) Cardiovascular: Reports: Regular Rate, Regular Rhythm GI/Abdominal Exam: Normal Bowel Sounds, Soft, Non-Tender, No Organomegaly, No Distention, No Abnormal Bruit, No Mass, Pelvis Stable Back Exam: Reports: Decreased Range of Motion, Vertebral Tenderness (lower thoracic and upper lumbar spine) Extremities: Normal Inspection, Normal Range of Motion, Non-Tender, No Pedal Edema, Normal Capillary Refill Skin: Reports: Warm, Dry, Intact Neurological: Reports: No New Focal Deficit
[2021-09-24] MEDS ORDERED: methylPREDNISolone Sodium Succinate 125 MG/2 ML SDV IVPUSH SCH (20:00)
== END 2021-09-24 14:50 | disposition home or self-care (01) | DRG 542 ==
LOC: CC.ED 11:50 → CC.MS 13:40
PROVIDERS: ADMIT Nurse Practitioner Family; ATTEND Family Medicine
DX: M48.56XA Collapsed vertebra, not elsewhere classified, lumbar region, initial encounter for fracture (principal); J18.9 Pneumonia, unspecified organism; M54.6 Pain in thoracic spine; J44.0 Chronic obstructive pulmonary disease with (acute) lower respiratory infection; J44.1 Chronic obstructive pulmonary disease with (acute) exacerbation; M48.54XA Collapsed vertebra, not elsewhere classified, thoracic region, initial encounter for fracture; M19.90 Unspecified osteoarthritis, unspecified site; F41.9 Anxiety disorder, unspecified; D64.9 Anemia, unspecified; I25.10 Atherosclerotic heart disease of native coronary artery without angina pectoris; Z87.01 Personal history of pneumonia (recurrent); I10 Essential (primary) hypertension; I48.91 Unspecified atrial fibrillation; Z96.649 Presence of unspecified artificial hip joint; Z85.118 Personal history of other malignant neoplasm of bronchus and lung; Z88.1 Allergy status to other antibiotic agents; Z88.5 Allergy status to narcotic agent; Z79.899 Other long term (current) drug therapy; Z86.718 Personal history of other venous thrombosis and embolism; Z79.01 Long term (current) use of anticoagulants; Z87.442 Personal history of urinary calculi; Z98.49 Cataract extraction status, unspecified eye; Z90.49 Acquired absence of other specified parts of digestive tract; Z95.5 Presence of coronary angioplasty implant and graft; Z88.8 Allergy status to other drugs, medicaments and biological substances
CPT/HCPCS: 36415; 71046; 80053; 81001; 83880; 85025; 85610; 86140; J2270; 72128; 80048; 87040; 96374; 99285-25; A9270-GY; C9113; J0696; J2930; J7620-GY

== ENCOUNTER 2021-09-27 21:01 | Emergency (ER) | payer MEDICARE ==
[2021-09-27 21:06] VITALS: BP 119/69; PULSE 95
[2021-09-27] MEDS ORDERED: Take Home: Acetaminophen/HYDROcodone 325-5 MG, 2 Tab Pack ONE (21:48)
[2021-09-27] MEDS ORDERED: Take Home: Acetaminophen/HYDROcodone 325-5 MG, 2 Tab Pack PO ONE (22:02)
--- NOTE | 2021-09-27 22:41 | EDM.PDOC ---
ED HPI GENERAL MEDICAL PROBLEM - General Chief Complaint: Back Pain or Injury Stated Complaint: back pain Time Seen by Provider: 09/27/21 21:30 Source of Information: Reports: Patient, Family History Limitations: Reports: No Limitations - History of Present Illness INITIAL COMMENTS - FREE TEXT/NARRATIVE: 85 year old female presents with back pain for the past 3 days since discharge on the 09/24. She was admitted originally with back pain secondary to compression fractures and was found to have pneumonia as well- please see those notes. Patient has been taking 1-2 tabs of Norman 5/325 q 6 as prescribed and states she still has some break-through pain. She was concerned that she will be out of her meds tomorrow and doesn't have an appt with her primary until Thursday. 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, Other Medication(s) (Norman 5/325 1-2 tabs q 6 hr) Lower Back Pain Score (Numeric/FACES): 7 - Related Data Allergies Allergy/AdvReac Type Severity Reaction Status Date / Time azithromycin Allergy Nausea and Verified 09/27/21 21:05 Vomiting codeine Allergy Cannot Verified 09/27/21 21:05 Remember levofloxacin [From Levaquin] Allergy Vomiting Verified 09/27/21 21:05 oxycodone Allergy Dizziness Verified 09/27/21 21:05 prednisone AdvReac Intermediate Other Verified 09/27/21 21:05 Home Meds: Home Meds Metoprolol Tartrate [Lopressor] 50 mg PO BID 02/08/15 [History] Multivitamin [Daily Vitamin] 1 each PO BEDTIME 03/12/15 [History] Albuterol/Ipratropium [DuoNeb 3.0-0.5 MG/3 ML] 3 ml NEB QIDRT PRN 11/15/18 [History] Acetaminophen/HYDROcodone [Norman 325-5 MG] 1 tab PO Q6H PRN #30 tablet 11/29/18 [Rx] dilTIAZem HCL [Cartia Xt] 120 mg PO DAILY 08/29/21 [History] Cholecalciferol (Vitamin D3) [Vitamin D3] 2,000 unit PO DAILY 09/04/21 [History] Denosumab [Prolia] 60 mg SUBCUT ASDIRECTED 09/04/21 [History] Doxycycline [Vibramycin] 100 mg PO BID 5 Days #10 tablet 09/24/21 [Rx] Past Medical History Cardiovascular History: Reports: Afib, Blood Clots/VTE/DVT, Hypertension, SOB on Exertion, Stents Respiratory History: Reports: COPD, Pneumonia, Recurrent, SOB Gastrointestinal History: Reports: GI Bleed Genitourinary History: Reports: Renal Calculus [employer] History: Reports: Musculoskeletal History: Reports: Osteoarthritis, Other (See Below) Other Musculoskeletal History: recent compression fractures Psychiatric History: Reports: Anxiety Hematologic History: Reports: Anemia Oncologic (Cancer) History: Reports: Lung - Past Surgical History HEENT Surgical History: Reports: Cataract Surgery Cardiovascular Surgical History: Reports: Coronary Artery Stent, Varicose Respiratory Surgical History: Reports: Lung Resection, Other (See Below) Other Respiratory Surgeries/Procedures: 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 GI Surgical History: Reports: Appendectomy Musculoskeletal Surgical History: Reports: Hip Replacement, Shoulder Surgery, Other (See Below) Other Musculoskeletal Surgeries/Procedures:: hammertoes and bunions both feet Oncologic Surgical History: Reports: Other (See Below) Other Oncologic Surgeries/Procedures: lower third of right lung removed Social & Family History - Family History Family Medical History: No Pertinent Family History Cardiac: Reports: Hypertension - Tobacco Use Tobacco Use Status *Q: Current Every Day Tobacco User Years of Tobacco use: 71 Packs/Tins Daily: 0.2 - Caffeine Use Caffeine Use: Reports: Coffee - Living Situation & Occupation Living situation: Reports: with Family ED ROS GENERAL - Review of Systems Review Of Systems: See Below Constitutional: Reports: No Symptoms HEENT: Reports: No Symptoms Respiratory: Reports: Other (pneumonia continues to improve - has baseline SOB due to COPD) Cardiovascular: Reports: No Symptoms Endocrine: Reports: No Symptoms GI/Abdominal: Reports: No Symptoms : Reports: No Symptoms Musculoskeletal: Reports: Back Pain Skin: Reports: No Symptoms Neurological: Reports: No Symptoms Psychiatric: Reports: No Symptoms Hematologic/Lymphatic: Reports: No Symptoms Immunologic: Reports: No Symptoms ED EXAM,LOWER BACK PAIN/INJURY - Physical Exam Exam: See Below Exam Limited By: No Limitations General Appearance: Alert, No Apparent Distress Ears: Normal External Exam Nose: Normal Inspection Throat/Mouth: Normal Inspection Head: Atraumatic Neck: Normal Inspection, Full Range of Motion Respiratory/Chest: No Respiratory Distress, Decreased Breath Sounds, Rales Cardiovascular: Regular Rate, Rhythm GI/Abdominal: Other (deferred) (Female) Exam: Other (deferred) Rectal (Female) Exam: Other (deferred) Back Exam: Decreased Range of Motion, Vertebral Tenderness Extremities: Normal Inspection Neurological: Alert, Normal Mood/Affect, Oriented x 3 Psychiatric: Normal Affect, Normal Mood Skin Exam: Warm, Dry, Intact Lymphatic: No Adenopathy Course - Vital Signs Last Recorded V/S: Last Vital Signs Temp 36.2 C 09/27/21 21:02 Pulse 95 09/27/21 21:02 Resp 16 09/27/21 21:02 BP 119/69 09/27/21 21:02 Pulse Ox 92 L 09/27/21 21:02 - Orders/Labs/Meds Meds: Medications Discontinued Medications Generic Name Dose Route Start Last Admin Trade Name Carlie PRN Reason Stop Dose Admin Hydrocodone Bitart/Acetaminophen 8 packet 09/27/21 22:02 09/27/21 22:12 Take Home: Acetaminophen/Hydrocodone 325-5 Mg, 2 Tab Pack PO 09/27/21 22:03 8 packet ONETIME ONE Administration Departure - Departure Time of Disposition: 10:20 Disposition: Home, Self-Care 01 Condition: Good Clinical Impression: Fracture of thoracic spine - Discharge Information Instructions: Chronic Back Pain, [id number] Referrals: PCP,None [Primary Care Provider] - Forms: ED Department Discharge Additional Instructions: Continue taking pain medications as discussed. Call Thursday to see if she can get in sooner with primary and establish outpatient PT treatment dates. Do the exercises and stretches as discussed. Sepsis Event Note (ED) - Evaluation Sepsis Screening Result: No Definite Risk - Focused Exam Vital Signs: Vital Signs Temp Pulse Resp BP Pulse Ox 09/27/21 21:02 36.2 C 95 16 119/69 92 L
== END 2021-09-27 22:20 | disposition home or self-care (01) ==
LOC: CC.ED 21:01
DX: S22.009A Unspecified fracture of unspecified thoracic vertebra, initial encounter for closed fracture (principal); J44.9 Chronic obstructive pulmonary disease, unspecified; I10 Essential (primary) hypertension; M19.90 Unspecified osteoarthritis, unspecified site; Z88.1 Allergy status to other antibiotic agents; Z88.5 Allergy status to narcotic agent; Z88.8 Allergy status to other drugs, medicaments and biological substances; Z72.0 Tobacco use
CPT/HCPCS: 99283; A9270-GY

== ENCOUNTER 2021-10-11 10:40 | Inpatient (IN) | payer MEDICARE ==
[2021-10-11 11:14] LABS: CHLORIDE,CL 100 mEq/L (98-106); SODIUM,NA 142 mEq/L (136-145)
[2021-10-11] MEDS ORDERED: Ondansetron 4 MG Tab.DIS PO PRN (13:08)
[2021-10-11] MEDS ORDERED: Albuterol/Ipratropium 3.0-0.5 MG/3 ML Neb Soln NEB PRN (13:08)
[2021-10-11] MEDS ORDERED: Denosumab 60 MG/1 ML Syringe SUBCUT SCH (13:30)
[2021-10-11] MEDS ORDERED: Sodium Chloride 0.9% 500 ML IV SCH ×2 (14:00→15:15)
[2021-10-11] MEDS: Albuterol/Ipratropium 3.0-0.5 MG/3 ML Neb Soln NEB PRN ×2 (15:01→19:50)
[2021-10-11] MEDS: Levofloxacin/Dextrose 5%-Water 750 MG in Premix Bag 1 BAG IV SCH ×2 (15:14→16:03)
[2021-10-11] MEDS ORDERED: Sodium Chloride 0.9% 1,000 ML IV SCH (15:15)
[2021-10-11] MEDS: fentaNYL 12 MCG/HR Transdermal Patch TRDERM SCH (16:12)
[2021-10-11] MEDS: Multivitamin Tab PO SCH (19:46)
[2021-10-11] MEDS: Metoprolol Tartrate 25 MG Tab PO SCH (19:49)
[2021-10-12] MEDS: Enoxaparin 30 MG/0.3 ML Syringe SUBCUT SCH ×2 (07:59→09:48)
[2021-10-12] MEDS: Albuterol/Ipratropium 3.0-0.5 MG/3 ML Neb Soln NEB PRN (08:00)
[2021-10-12] MEDS: Diltiazem 120 MG Cap.CD PO SCH (08:00)
[2021-10-12] MEDS: Ferrous Sulfate 324 MG Tab.EC PO SCH (08:00)
[2021-10-12] MEDS: Metoprolol Tartrate 25 MG Tab PO SCH ×2 (08:00→19:29)
[2021-10-12 08:05] LABS: CHLORIDE,CL 103 mEq/L (98-106); SODIUM,NA 144 mEq/L (136-145)
[2021-10-12] MEDS ORDERED: Magnesium Sulfate/Water 2 GM in Premix Bag 1 BAG IV ONE (09:21)
[2021-10-12] MEDS: Cholecalciferol (Vitamin D3) 25 MCG Tab PO SCH (09:43)
[2021-10-12] MEDS ORDERED: Albuterol/Ipratropium 3.0-0.5 MG/3 ML Neb Soln NEB PRN (10:19)
[2021-10-12] MEDS: Albuterol/Ipratropium 3.0-0.5 MG/3 ML Neb Soln NEB SCH ×3 (11:41→19:29)
[2021-10-12] MEDS: Potassium Chloride 10 MEQ Tab.ER PO SCH (16:40)
[2021-10-12] MEDS: Multivitamin Tab PO SCH (19:27)
[2021-10-13] MEDS: Albuterol/Ipratropium 3.0-0.5 MG/3 ML Neb Soln NEB SCH ×4 (07:48→19:38)
[2021-10-13] MEDS: Diltiazem 120 MG Cap.CD PO SCH (07:48)
[2021-10-13] MEDS: Potassium Chloride 10 MEQ Tab.ER PO SCH ×2 (07:48→17:11)
[2021-10-13] MEDS: Ferrous Sulfate 324 MG Tab.EC PO SCH (07:48)
[2021-10-13] MEDS: Metoprolol Tartrate 25 MG Tab PO SCH ×2 (07:49→19:37)
[2021-10-13] MEDS: Cholecalciferol (Vitamin D3) 25 MCG Tab PO SCH (07:52)
[2021-10-13 07:57] LABS: CHLORIDE,CL 103 mEq/L (98-106); SODIUM,NA 144 mEq/L (136-145)
[2021-10-13] MEDS: Acetaminophen 325 MG Tab PO PRN ×2 (08:57→19:37)
[2021-10-13] MEDS: Levofloxacin/Dextrose 5%-Water 750 MG in Premix Bag 1 BAG IV SCH (15:27)
[2021-10-13] MEDS: Acetaminophen/HYDROcodone 325-5 MG Tab PO PRN (18:04)
[2021-10-13] MEDS: Multivitamin Tab PO SCH (19:37)
[2021-10-14 07:40] LABS: CHLORIDE,CL 104 mEq/L (98-106); SODIUM,NA 142 mEq/L (136-145)
[2021-10-14] MEDS: Albuterol/Ipratropium 3.0-0.5 MG/3 ML Neb Soln NEB SCH ×4 (08:01→19:23)
[2021-10-14] MEDS: Metoprolol Tartrate 25 MG Tab PO SCH ×2 (08:05→19:22)
[2021-10-14] MEDS: Diltiazem 120 MG Cap.CD PO SCH (08:05)
[2021-10-14] MEDS: Potassium Chloride 10 MEQ Tab.ER PO SCH (08:05)
[2021-10-14] MEDS: Magnesium Chloride 64 MG Tab.ER PO SCH (08:05)
[2021-10-14] MEDS: Ferrous Sulfate 324 MG Tab.EC PO SCH (08:05)
[2021-10-14] MEDS: Acetaminophen/HYDROcodone 325-5 MG Tab PO PRN ×3 (08:05→23:35)
[2021-10-14] MEDS: Cholecalciferol (Vitamin D3) 25 MCG Tab PO SCH ×2 (08:14→08:15)
[2021-10-14] MEDS: fentaNYL 12 MCG/HR Transdermal Patch TRDERM SCH (15:57)
[2021-10-14] MEDS ORDERED: Levofloxacin/Dextrose 5%-Water 750 MG in Premix Bag 1 BAG IV SCH (16:00)
[2021-10-14] MEDS: Multivitamin Tab PO SCH (19:23)
[2021-10-15] MEDS: Albuterol/Ipratropium 3.0-0.5 MG/3 ML Neb Soln NEB SCH (07:37)
[2021-10-15] MEDS: Metoprolol Tartrate 25 MG Tab PO SCH (07:37)
[2021-10-15] MEDS: Ferrous Sulfate 324 MG Tab.EC PO SCH (07:37)
[2021-10-15] MEDS: Cholecalciferol (Vitamin D3) 25 MCG Tab PO SCH (07:37)
[2021-10-15] MEDS: Diltiazem 120 MG Cap.CD PO SCH (07:38)
[2021-10-15] MEDS: Magnesium Chloride 64 MG Tab.ER PO SCH (07:38)
[2021-10-15 07:39] VITALS: BP 142/71
[2021-10-15 07:41] LABS: CHLORIDE,CL 102 mEq/L (98-106); SODIUM,NA 140 mEq/L (136-145)
[2021-10-15] MEDS: Acetaminophen/HYDROcodone 325-5 MG Tab PO PRN (08:28)
[2021-10-15] MEDS: Potassium Chloride 10 MEQ Tab.ER PO SCH (09:23)
[2021-10-15 10:37] VITALS: PULSE 92
== END 2021-10-15 11:00 | disposition home or self-care (01) | DRG 190 ==
LOC: CC.FCMC 10:40 → CC.MS 10:40 → UNDOADMIN 12:03 → CC.MS 12:03 → UNDOADMIN 13:08 → CC.MS 13:09 → UNDOADMIN 10-13 15:30 → CC.MS 10-13 15:30
PROVIDERS: ADMIT Physician Assistant Medical; ATTEND Family Medicine
PROC: 3E0U33Z Introduction of Anti-inflammatory into Joints, Percutaneous Approach (ICD-10-PCS; principal; 2021-10-11)
DX: J44.0 Chronic obstructive pulmonary disease with (acute) lower respiratory infection (principal); J18.9 Pneumonia, unspecified organism; S32.019A Unspecified fracture of first lumbar vertebra, initial encounter for closed fracture; S22.089A Unspecified fracture of T11-T12 vertebra, initial encounter for closed fracture; I10 Essential (primary) hypertension; I48.91 Unspecified atrial fibrillation; M19.90 Unspecified osteoarthritis, unspecified site; F41.9 Anxiety disorder, unspecified; D64.9 Anemia, unspecified; Z96.649 Presence of unspecified artificial hip joint; M54.6 Pain in thoracic spine; F17.210 Nicotine dependence, cigarettes, uncomplicated; Z79.899 Other long term (current) drug therapy; Z88.1 Allergy status to other antibiotic agents; Z88.5 Allergy status to narcotic agent; Z88.8 Allergy status to other drugs, medicaments and biological substances; Z87.01 Personal history of pneumonia (recurrent); Z87.440 Personal history of urinary (tract) infections; Z85.118 Personal history of other malignant neoplasm of bronchus and lung; Z95.5 Presence of coronary angioplasty implant and graft; Z98.49 Cataract extraction status, unspecified eye; Z90.49 Acquired absence of other specified parts of digestive tract; Z98.890 Other specified postprocedural states
CPT/HCPCS: 36415; 71046; 80048; 80053; 81003; 83605; 83735; 85025; 86140; 87040; 87070; 87205; 94640; 97110-GP; 97161-GP; A9270-GY; J1650; J1956; J3475; J7030; J7620-GY

== ENCOUNTER 2022-03-01 12:05 | Emergency (ER) | payer MEDICARE ==
[2022-03-01] MEDS ORDERED: Sodium Chloride 0.9% 10 ML Syringe FLUSH PRN (12:36)
[2022-03-01] MEDS ORDERED: Aspirin 81 MG Tab.Chew PO ONE (12:44)
[2022-03-01 12:46] LABS: PTT,PARTIAL THROMBOPLSTIN TIME 24.7 SEC (23.2-32.3)
[2022-03-01 12:48] LABS: CHLORIDE,CL 99 mEq/L (98-106); ESTIMATED GFR > 60 mL/min (>=60); SODIUM,NA 132 mEq/L (136-145)
[2022-03-01] MEDS ORDERED: Potassium Chloride 10% 20 MEQ/15 ML Soln 15 ML UD Cup PO ONE (13:00)
[2022-03-01] MEDS ORDERED: Sodium Chloride 0.9% 500 ML IV SCH (13:15)
[2022-03-01 16:14] VITALS: BP 144/78; PULSE 79
[2022-03-01] MEDS ORDERED: Take Home: predniSONE 20 MG, 2 Tab Pack PO ONE (18:03)
[2022-03-01] MEDS ORDERED: Take Home: Amoxicillin/Clavulanate K 875-125 MG Tab, 2 Tab Pack PO ONE (18:13)
[2022-03-01] MEDS ORDERED: Take Home: Albuterol/Ipratropium 3.0-0.5 MG/3 ML Neb Soln, 4 Neb Pack NEB ONE (18:18)
[2022-03-01] MEDS ORDERED: Take Home: Albuterol 0.083% 2.5 MG/3 ML Neb Soln, 4 Neb Pack NEB ONE (18:28)
== END 2022-03-01 19:15 | disposition home or self-care (01) ==
LOC: CC.ED 12:05
DX: U07.1 COVID-19 (principal); J44.0 Chronic obstructive pulmonary disease with (acute) lower respiratory infection; I10 Essential (primary) hypertension; F17.210 Nicotine dependence, cigarettes, uncomplicated; Z79.899 Other long term (current) drug therapy; Z88.5 Allergy status to narcotic agent; Z88.1 Allergy status to other antibiotic agents; Z88.8 Allergy status to other drugs, medicaments and biological substances
CPT/HCPCS: 36415; 71045; 71275; 80053; 81001; 82550; 83605; 83615; 83690; 83735; 83880; 84484; 85025; 85379; 85610; 85730; 87804; 93005; 99284; 99285-25; A9270-GY; J7040; J7512; U0002

== ENCOUNTER 2022-05-13 22:26 | Observation (INO) | payer MEDICARE ==
[~2022-05-13 22:26] MED LIST changes: +Albuterol/Ipratropium 3.0-0.5 MG/3 ML Neb Soln ONE; -Ketamine 200 MG/20 ML MDV ONE; -Lactated Ringers 1,000 ML IV SCH; -Lidocaine 2% 5 ML SDV ONE; -Phenylephrine 1% 10 MG/ML SDV ONE; -Propofol 200 MG/20 ML SDV ONE; -fentaNYL 100 MCG/2 ML SDV ONE
[2022-05-13] MEDS ORDERED: Albuterol/Ipratropium 3.0-0.5 MG/3 ML Neb Soln NEB PRN (22:34)
[2022-05-13] MEDS ORDERED: methylPREDNISolone Sodium Succinate 125 MG/2 ML SDV IVPUSH STA (23:22)
[2022-05-13] MEDS ORDERED: Acetaminophen 325 MG Tab PO PRN (23:54)
[2022-05-13] MEDS ORDERED: Ondansetron 4 MG/2 ML SDV IV PRN (23:54)
[2022-05-13] MEDS ORDERED: Ondansetron 4 MG Tab.DIS PO PRN (23:54)
[2022-05-13] MEDS ORDERED: guaiFENesin 100 MG/5 ML Soln 5 ML UD Cup PO PRN (23:54)
[2022-05-13] MEDS ORDERED: Albuterol 0.083% 2.5 MG/3 ML Neb Soln NEB PRN (23:54)
[2022-05-14] MEDS ORDERED: Acetaminophen/HYDROcodone 325-5 MG Tab PO PRN
[2022-05-14] MEDS: Albuterol/Ipratropium 3.0-0.5 MG/3 ML Neb Soln NEB SCH ×2 (07:45→11:31)
[2022-05-14] MEDS: Heparin Sodium 5,000 Units/ML Vial SUBCUT SCH ×2 (07:47→08:25)
[2022-05-14] MEDS ORDERED: Metoprolol Tartrate 25 MG Tab PO SCH (08:00)
[2022-05-14] MEDS ORDERED: Diltiazem 120 MG Cap.CD PO SCH (08:00)
[2022-05-14] MEDS ORDERED: Amoxicillin/Clavulanate K 875-125 MG Tab PO SCH (08:00)
[2022-05-14 11:40] VITALS: BP 144/85; PULSE 107
[2022-05-14] MEDS ORDERED: Multivitamin Tab PO SCH (20:00)
== END 2022-05-14 14:00 | disposition home or self-care (01) ==
LOC: CC.ED 22:26 → CC.MS 23:30 → UNDOADMOB 23:30 → CC.MS 23:41
PROVIDERS: ADMIT Nurse Practitioner Family; ATTEND Nurse Practitioner Family
DX: J44.1 Chronic obstructive pulmonary disease with (acute) exacerbation (principal); I10 Essential (primary) hypertension; J44.9 Chronic obstructive pulmonary disease, unspecified; J18.9 Pneumonia, unspecified organism; F41.9 Anxiety disorder, unspecified; D64.9 Anemia, unspecified; M19.90 Unspecified osteoarthritis, unspecified site; F17.210 Nicotine dependence, cigarettes, uncomplicated; Z20.822 Contact with and (suspected) exposure to COVID-19; Z88.1 Allergy status to other antibiotic agents; Z88.5 Allergy status to narcotic agent; Z90.49 Acquired absence of other specified parts of digestive tract; Z98.890 Other specified postprocedural states; Z96.649 Presence of unspecified artificial hip joint; Z79.51 Long term (current) use of inhaled steroids; Z79.899 Other long term (current) drug therapy
CPT/HCPCS: 36415; 71046; 80053; 83880; 85025; 86140; 94640; 99217; 99220; 99285; A9270-GY; G0378; J1644; J2930; J7620-GY; U0002

== ENCOUNTER 2023-04-05 02:24 | Inpatient (IN) | payer MEDICARE ==
[2023-04-05 02:23] LABS: BASOPHILS ABSOLUTE AUTO 0.01 10^3/uL (0.00-0.50); BASOPHILS PERCENT AUTO 0.1 % (0-1); EOSINOPHILS ABSOLUTE AUTO 0.07 10^3/uL (0.00-1.50); EOSINOPHILS PERCENT AUTO 0.5 % (0-6); HEMATOCRIT 35.6 % (37.0-47.0); HEMOGLOBIN 11.3 g/dL (12.0-16.0); IMMATURE GRAN ABSOLUTE AUTO 0.03 10^3/uL (0.00-0.49); IMMATURE GRAN PERCENT AUTO 0.2 % (0.0-4.9); LYMPHOCYTES ABSOLUTE AUTO 0.52 10^3/uL (0.60-5.00); LYMPHOCYTES PERCENT AUTO 3.8 % (24-44); MEAN CORPUSCULAR HEMOGLOBIN 25.8 pg (27.0-32.0); MEAN CORPUSCULAR HGB CONC 31.7 g/dL (32.0-36.0); MEAN CORPUSCULAR VOLUME 81.3 fL (83.0-97.0); MONOCYTES ABSOLUTE AUTO 0.65 10^3/uL (0.00-1.50); MONOCYTES PERCENT AUTO 4.8 % (0-10); NEUTROPHILS ABSOLUTE AUTO 12.33 x10^3/uL (1.80-8.00); NEUTROPHILS PERCENT AUTO 90.6 % (41-71); PLATELET COUNT,PLT 354 10^3/uL (150-400); RED BLOOD CELL COUNT 4.38 x10^6/uL (4.00-5.50); WHITE BLOOD CELL COUNT,WBC 13.6 10^3/uL (4.0-11.0)
[~2023-04-05 02:24] MED LIST changes: +Albuterol/Ipratropium 3.0-0.5 MG/3 ML Neb Soln NEB STA; -Albuterol/Ipratropium 3.0-0.5 MG/3 ML Neb Soln ONE
[2023-04-05 02:39] LABS: ALBUMIN 2.5 g/dL (3.4-5.0); BILIRUBIN TOTAL 0.4 mg/dL (0.0-1.0); C-REACTIVE PROTEIN 5.09 mg/dL (<=0.30); CALCIUM 9.1 mg/dL (8.4-10.1); CREATININE 0.4 mg/dL (0.6-1.0); EST CRCL DRUG DOSING (CG) 73.08 mL/min; POTASSIUM,K 3.7 mEq/L (3.5-5.0); PROTEIN TOTAL,TP 6.5 g/dL (6.4-8.2)
[2023-04-05] MEDS ORDERED: Acetaminophen/HYDROcodone 325-5 MG Tab PO PRN (03:55)
[2023-04-05] MEDS ORDERED: Ferrous Sulfate 324 MG Tab.EC PO PRN (03:55)
[2023-04-05] MEDS ORDERED: Denosumab 60 MG/1 ML Syringe SUBCUT SCH (04:00)
[2023-04-05] MEDS ORDERED: Acetaminophen 325 MG Tab PO PRN (04:12)
[2023-04-05] MEDS ORDERED: Piperacillin/Tazobactam 4.5 GM in Sodium Chloride 0.9% 100 ML IV ONE (04:12)
[2023-04-05] MEDS ORDERED: Ondansetron 4 MG/2 ML SDV IV PRN (04:12)
[2023-04-05] MEDS ORDERED: Morphine 2 MG/ML SYRINGE IVPUSH PRN (04:12)
[2023-04-05] MEDS ORDERED: Sodium Chloride 0.9% 1,000 ML IV SCH (04:12)
[2023-04-05] MEDS ORDERED: Albuterol 0.083% 2.5 MG/3 ML Neb Soln NEB PRN (04:12)
[2023-04-05] MEDS ORDERED: Ibuprofen 200 MG Tab PO PRN (04:12)
[2023-04-05] MEDS ORDERED: Sodium Chloride 0.9% 10 ML Syringe FLUSH PRN (04:12)
[2023-04-05] MEDS ORDERED: Sodium Chloride 0.9% 500 ML IV SCH (04:12)
[2023-04-05] MEDS ORDERED: Ondansetron 4 MG Tab.DIS PO PRN (04:12)
[2023-04-05] MEDS ORDERED: Metoprolol Tartrate 25 MG Tab PO SCH (08:00)
[2023-04-05] MEDS ORDERED: Diltiazem 120 MG Cap.CD PO SCH (08:00)
[2023-04-05] MEDS: Albuterol/Ipratropium 3.0-0.5 MG/3 ML Neb Soln NEB SCH ×3 (08:09→15:58)
[2023-04-05] MEDS ORDERED: Piperacillin/Tazobactam 3.375 GM in Sodium Chloride 0.9% 100 ML IV SCH (12:30)
[2023-04-05 16:01] VITALS: BP 125/65; PULSE 80
[2023-04-05] MEDS ORDERED: Enoxaparin 40 MG/0.4 ML Syringe SUBCUT SCH (20:00)
== END 2023-04-05 16:43 | DRG 193 ==
LOC: UNDOADMIN 03:30 → CC.MS 03:30 → UNDODISIN 16:43
PROVIDERS: ADMIT Nurse Practitioner Family; ATTEND Nurse Practitioner Family
PROC: 5A09357 Assistance with Respiratory Ventilation, Less than 24 Consecutive Hours, Continuous Positive Airway Pressure (ICD-10-PCS; principal; 2023-04-05)
DX: J18.9 Pneumonia, unspecified organism (principal); J85.0 Gangrene and necrosis of lung; D72.829 Elevated white blood cell count, unspecified; J43.9 Emphysema, unspecified; J44.9 Chronic obstructive pulmonary disease, unspecified; F41.9 Anxiety disorder, unspecified; D64.9 Anemia, unspecified; R79.89 Other specified abnormal findings of blood chemistry; Z96.649 Presence of unspecified artificial hip joint; Z98.890 Other specified postprocedural states; Z95.5 Presence of coronary angioplasty implant and graft; Z90.2 Acquired absence of lung [part of]; I48.91 Unspecified atrial fibrillation; Z98.49 Cataract extraction status, unspecified eye; I10 Essential (primary) hypertension; Z99.81 Dependence on supplemental oxygen; Z79.899 Other long term (current) drug therapy; Z88.0 Allergy status to penicillin; Z79.01 Long term (current) use of anticoagulants; Z79.82 Long term (current) use of aspirin; Z79.51 Long term (current) use of inhaled steroids; Z86.718 Personal history of other venous thrombosis and embolism; Z90.49 Acquired absence of other specified parts of digestive tract; Z88.1 Allergy status to other antibiotic agents; Z88.5 Allergy status to narcotic agent; Z88.8 Allergy status to other drugs, medicaments and biological substances
CPT/HCPCS: 36415; 71045; 71250; 80053; 84484; 85025; 86140; 87040; 87070; 87205; 93005; 93010; 94640; 99236; 99285; A9270-GY; J2543; J3490; J7030; J7620-GY

== ENCOUNTER 2023-04-19 15:45 | Emergency (ER) | payer MEDICARE ==
[2023-04-19] MEDS: Albuterol/Ipratropium 3.0-0.5 MG/3 ML Neb Soln NEB ONE (16:23)
[2023-04-19] MEDS: Furosemide 40 MG/4 ML VIAL IVPUSH ONE (16:31)
[2023-04-19] MEDS: Dexamethasone 4 MG/ML SDV IVPUSH ONE (16:33)
[2023-04-19 16:47] LABS: BASOPHILS ABSOLUTE AUTO 0.01 10^3/uL (0.00-0.50); BASOPHILS PERCENT AUTO 0.1 % (0-1); EOSINOPHILS ABSOLUTE AUTO 0.05 10^3/uL (0.00-1.50); EOSINOPHILS PERCENT AUTO 0.4 % (0-6); HEMOGLOBIN 10.9 g/dL (12.0-16.0); IMMATURE GRAN ABSOLUTE AUTO 0.03 10^3/uL (0.00-0.49); IMMATURE GRAN PERCENT AUTO 0.2 % (0.0-4.9); LYMPHOCYTES ABSOLUTE AUTO 0.58 10^3/uL (0.60-5.00); LYMPHOCYTES PERCENT AUTO 4.6 % (24-44); MEAN CORPUSCULAR HEMOGLOBIN 26.3 pg (27.0-32.0); MEAN CORPUSCULAR VOLUME 79.5 fL (83.0-97.0); MONOCYTES ABSOLUTE AUTO 0.89 10^3/uL (0.00-1.50); NEUTROPHILS ABSOLUTE AUTO 11.18 x10^3/uL (1.80-8.00); NEUTROPHILS PERCENT AUTO 87.7 % (41-71); PLATELET COUNT,PLT 289 10^3/uL (150-400); RED BLOOD CELL COUNT 4.15 x10^6/uL (4.00-5.50); WHITE BLOOD CELL COUNT,WBC 12.7 10^3/uL (4.0-11.0)
[2023-04-19] MEDS: Iopamidol 755 Mg/ML 100 ML Bottle IVPUSH ONE (17:05)
[2023-04-19 17:06] LABS: LACTIC ACID 0.9 mmol/L (0.4-2.0)
[2023-04-19 17:07] LABS: ALBUMIN 2.9 g/dL (3.4-5.0); BILIRUBIN TOTAL 0.4 mg/dL (0.0-1.0); CALCIUM 8.3 mg/dL (8.4-10.1); CREATININE 0.4 mg/dL (0.6-1.0); EST CRCL DRUG DOSING (CG) 76.89 mL/min; POTASSIUM,K 4.4 mEq/L (3.5-5.0); PROTEIN TOTAL,TP 6.5 g/dL (6.4-8.2)
[2023-04-19 18:52] VITALS: BP 96/55; PULSE 86
== END 2023-04-19 19:05 | disposition home or self-care (01) ==
LOC: CC.ED 15:45
DX: C34.90 Malignant neoplasm of unspecified part of unspecified bronchus or lung (principal); E87.70 Fluid overload, unspecified; I48.91 Unspecified atrial fibrillation; I10 Essential (primary) hypertension; J44.9 Chronic obstructive pulmonary disease, unspecified; Z88.1 Allergy status to other antibiotic agents; Z88.8 Allergy status to other drugs, medicaments and biological substances; Z88.5 Allergy status to narcotic agent; Z79.899 Other long term (current) drug therapy; Z20.822 Contact with and (suspected) exposure to COVID-19
CPT/HCPCS: 36415; 51702; 71275; 80053; 83605; 83880; 84484; 85025; 87040; 93005; 93010; 94640; 96374; 96375; 99284; 99285-25; J1100; J1940; J7620-GY; Q9967; U0002

== ENCOUNTER 2023-05-07 14:32 | Emergency (ER) | payer MEDICARE ==
[2023-05-07] MEDS ORDERED: Albuterol/Ipratropium 3.0-0.5 MG/3 ML Neb Soln NEB ONE ×2 (15:04→15:27)
[2023-05-07 15:08] LABS: HEMATOCRIT 37.3 % (37.0-47.0); HEMOGLOBIN 11.8 g/dL (12.0-16.0); MEAN CORPUSCULAR HEMOGLOBIN 25.3 pg (27.0-32.0); MEAN CORPUSCULAR HGB CONC 31.6 g/dL (32.0-36.0); MEAN CORPUSCULAR VOLUME 79.9 fL (83.0-97.0); PLATELET COUNT,PLT 263 10^3/uL (150-400); RED BLOOD CELL COUNT 4.67 x10^6/uL (4.00-5.50); WHITE BLOOD CELL COUNT,WBC 12.1 10^3/uL (4.0-11.0)
[2023-05-07 15:24] LABS: ALANINE AMINOTRANSFERASE,ALT 51 U/L (12-78); ALBUMIN 2.9 g/dL (3.4-5.0); ALKALINE PHOSPHATASE 98 U/L (46-116); ASPARTATE AMNIOTRANSFERASE,AST 21 U/L (15-37); BILIRUBIN TOTAL 0.5 mg/dL (0.0-1.0); BLOOD UREA NITROGEN,BUN 21 mg/dL (7-18); CARBON DIOXIDE,CO2 35 mmol/L (21-32); CHLORIDE,CL 97 mEq/L (98-106); CREATININE 0.5 mg/dL (0.6-1.0); GLUCOSE RANDOM 245 mg/dL (75-99); POTASSIUM,K 3.8 mEq/L (3.5-5.0); PRO B-TYPE NATRIUR PEPT,BNPPRO 5141 pg/mL (0-1000); PROTEIN TOTAL,TP 6.7 g/dL (6.4-8.2); SODIUM,NA 138 mEq/L (136-145)
[2023-05-07 15:33] LABS: ESTIMATED GFR 90 mL/min (>=60)
[2023-05-07 15:46] LABS: EOSINOPHILS ABSOLUTE MAN 0.12 10^3/uL (0.00-0.45); EOSINOPHILS PERCENT MAN 1 % (0-5); LYMPHOCYTES ABSOLUTE MAN 0.36 10^3/uL (1.00-4.80); LYMPHOCYTES PERCENT MAN 3 % (21-55); MONOCYTES ABSOLUTE MAN 0.61 10^3/uL (0.00-0.80); MONOCYTES PERCENT MAN 5 % (2-12); NEUTROPHILS ABSOLUTE MAN 11.01 10^3/uL (1.80-7.00); SEG NEUTROPHILS PERCENT MAN 91 % (35-85)
[2023-05-07] MEDS ORDERED: Furosemide 40 MG/4 ML VIAL IVPUSH ONE (15:54)
[2023-05-07 18:07] VITALS: BP 114/68; PULSE 92
== END 2023-05-07 17:55 | disposition home or self-care (01) ==
LOC: CC.ED 14:32
DX: C34.90 Malignant neoplasm of unspecified part of unspecified bronchus or lung (principal); J44.1 Chronic obstructive pulmonary disease with (acute) exacerbation; R09.02 Hypoxemia; E87.70 Fluid overload, unspecified; Z88.1 Allergy status to other antibiotic agents; Z88.5 Allergy status to narcotic agent; Z20.822 Contact with and (suspected) exposure to COVID-19
CPT/HCPCS: 36415; 71046; 80053; 83880; 85025; 87804; 94640; 96374; 99284; 99285-25; J1940; J7620-GY; U0002